=== PATIENT | male | born 1955 | race Caucasian/White ===

== ENCOUNTER → 2017-04-19 | Day surgery (SDC) | payer BC ==
[2017-03-22 09:50] VITALS: Ht 170.2 cm; Wt 65.9 kg
[~2017-04-19] VITALS: Ht 170.2 cm; Wt 65.9 kg
[~2017-04-19] MED LIST: 500ML BSS 0.3ML EPI 1:1000PF IRRIG ONE; ACETAMINOPHEN 325 MG TAB PO PRN; ALBU18002 INH; AMOX875T PO; AMVISC PLUS 0.8ML SYRINGE INT OCU ONE; AMX500 PO; ASPI81TA28 PO; ATROPINE SULFATE 0.1 MG/ML 5ML SYR IV PRN; BROM0.07 OPR; BSS FLUSH ONE; CEFU1TAB36 PO; DIFL0.0519 OPR; DOXY100C41 PO; EpHEDrine SULFATE INJ 50 MG/ML AMP IV PRN; EpINEphrine INJ 1MG/ML AMP 1 MG/ML AMP ONE; GATI1SOL2 OPR; HYG/25 PO; IPRA1AER2 INH; LACTATED RINGER'S 1000ML 500 ML IV SCH; LIDOCAINE 3.5% OPH GEL PER APPLICATION CHARGE ONE; LIDOCAINE HCL 1% MPF 2 ML VIAL ONE; METO50TA7 PO; MIDAZOLAM HCL 1 MG/ML 2ML VIAL ONE; MULT1CHW18 PO; OCUCOAT 1 ML SOLN IO ONE; PHEN1LIQ PO; POVIDONE-IODINE OP SOLN 30 ML BTL ONE; PRED10TA PO; PRLSR20 PO; PROPARACAINE 0.5% OP SOLN PER DROP CHARGE OPR SCH; SPRIN/30 INH; SRVDIN60 INH; TOBRAMYCIN/DEXAMETHASONE OPH OINT PER APPLN CHARGE ONE
[2017-04-19] MEDS: PHENYLEPHRINE HCL 2.5% OP SOLN PER DROP CHARGE OPR SCH ×2 (10:39→10:44)
[2017-04-19] MEDS: TROPICAMIDE 1% OP SOLN PER DROP CHARGE OPR SCH ×2 (10:40→10:45)
[2017-04-19] MEDS: CYCLOPENTOLATE HCL 1% OP SOLN PER DROP CHARGE OPR SCH ×2 (10:41→10:46)
[2017-04-19] MEDS: KETOROLAC 0.5% OP SOLN PER DROP CHARGE OPR SCH ×2 (10:42→10:47)
[2017-04-19] MEDS: GATIFLOXACIN OP SOLN PER DROP CHARGE OPR SCH ×2 (10:43→10:53)
--- NOTE | 2017-04-19 11:01 | History & Physical Bridge - [place] ---
H&P Re-Evaluation Bridge Note: I have examined the patient, reviewed the History & Physical and in the interval since the performance of the History & Physical I have noted the following changes of clinical significance: Diagnosis: Right Cataract Procedure: Right Cataract Removal with Lens Implant No changes noted
--- NOTE | 2017-04-19 11:52 | Discharge Instructions-SurgCtr ---
Discharge Instructions Date of Service Apr 19, 2017. Visit Reason for Visit: Cataract Right Eye Discharge Discharge Diagnosis / Problem: cataract Discharge Goals Goal(s): Improve function Activity Recommendations Activity Limitations: per Instructions/Follow-up section Anesthesia . Post Anesthesia Instructions: If you have had General Anesthesia or IV Sedation: * Do not drive today. * Resume driving when surgeon permits. * Do not make important decisions or sign legal documents today. * Call surgeon for: 1. Temperature elevations greater than 101 degrees F. 2. Uncontrollable pain. 3. Excessive bleeding. 4. Persistent nausea and vomiting. 5. Medication intolerance (nausea, vomiting or rash). * For nausea and vomiting use only clear liquids such as: tea, soda, bouillon until nausea subsides, then gradually increase diet as tolerated. * If you have any concerns or questions, call your surgeon's office. If physician is unavailable and it is an emergency, call 911 or go to the nearest emergency room. . Instructions / Follow-Up Instructions / Follow-Up ACTIVITY RECOMMENDATIONS: * No strenuous lifting, jogging or running for 4 days * No swimming or yard work for 1 week. * Limited bending is permitted, such as putting on shoes. RETURN TO SCHOOL/WORK: No work until seen by physician in office. MEDICATIONS: Resume previous medications unless instructed otherwise by your surgeon. This includes eye drops for glaucoma. Zymaxid/Gatifloxacin (gibson cap) - one drop every 2 hours until bedtime Nevanac/Ilevro/Prolensa/Ketorolac (huertas cap) - one drop every 4 hours until bedtime Prednisolone/Durezol (white/pink cap, SHAKE WELL) - one drop every 2 hours until bedtime Starting tomorrow - all 3 drops every 4 hours until seen in the office Optive drops - as needed for discomfort SPECIAL CARE INSTRUCTIONS: * Wear eyeshield when sleeping, for four nights. * You may wear your own glasses or sunglasses while awake. * You may read or watch TV * You may shower and wash your face, but be gentle around the eye and pat dry. * Blurry vision and mild irritation are normal. * Call office if pain is more severe or vision becomes dark at . FOLLOW UP VISIT: Follow-up with Dr Levine tomorrow. Diet Recommendations Home Diet: resume previous diet Procedures Procedures Performed: Right Cataract Phacoemulsification With Intraocular Lens Implant Pending Studies Studies pending at discharge: no Medical Emergencies . Who to Call and When: Medical Emergencies: If at any time you feel your situation is an emergency, please call 911 immediately. . Non-Emergent Contact Non-Emergency issues call your: [employer] . . "Provider Documentation" section prepared by Bryon Levine. .
--- NOTE | 2017-04-19 11:53 | [facility] Operative Report ---
Operative Report Date of Service Apr 19, 2017. Operative Report 1. PREOPERATIVE DIAGNOSIS: Cataract of the right eye. 2. POSTOPERATIVE DIAGNOSIS: Same. 3. PROCEDURE: Phacoemulsification with intraocular lens implantation of the right eye. SURGEON: Dr. Bryon Levine. ANESTHESIA: Topical Lidocaine gel, 1% Non- Preserved intracameral Lidocaine, and monitored intravenous sedation. INDICATIONS FOR THE PROCEDURE: The patient is a 61 - year-old male with a history of cataract of the right eye causing significant visual impairment. The details of the proposed procedure were explained to the patient who asked appropriate questions and following discussion of all risks, benefits and alternatives agreed to have the procedure done. 4. OPERATION AND FINDINGS: DESCRIPTION OF PROCEDURE: After informed consent was obtained, the patient was brought to the Operating Room at the [facility]. The patient was placed in a supine position and then the right eye was prepped and draped in the usual sterile fashion for intraocular surgery. A drop of topical Lidocaine gel was placed in the operative eye. A wire lid speculum was then placed in the fornices. A corneal paracentesis was then created temporally. The Non-Preserved Lidocaine was then instilled into the anterior chamber. The anterior chamber was then pressurized with viscoelastic. A 2.0 mm clear corneal incision was then created temporally. A cystotome was inserted into the anterior chamber and used to create a tear in the anterior lens capsule. This capsular tear was then used to create a small flap and the flap was dragged in a counterclockwise direction in order to create a continuous curvilinear capsulorrhexis. Hydrodissection was accomplished with balanced salt solution. Phacoemulsification of the lens nucleus was then performed in a standard [id number] technique. The phaco time was 39 seconds with an average power of 21 %. The remaining cortical material was removed using irrigation aspiration. The capsular bag was then filled with viscoelastic. A [employer]ch [employer] Lomb MI60L +20.0 diopters lens was then loaded into the injector and injected into the capsular bag. The remaining viscoelastic was removed with the irrigation aspiration handpiece. The wound was hydrated and then checked and found to be watertight. The intraocular pressure was checked and found to be adequate. The wire lid speculum was removed and the patient's face was cleaned and dried. TobraDex ointment was placed in the inferior fornix. The patient was discharged to the Recovery Room having tolerated the procedure well. There were no complications. The patient will be seen tomorrow in the office for follow-up. I attest to the content of the Intraoperative Record and any orders documented therein. Any exceptions are noted below.
[2017-04-19 11:54] VITALS: TEMP 36.5
[2017-04-19 12:17] VITALS: BP 116/76; PULSE 80; O2SAT 100
--- NOTE | 2017-04-19 12:20 | Anesthesia Progress Nt - [facility] ---
Anesthesia Post Op Note Date & Time Apr 19, 2017 at 12:20 Vital Signs Pain Intensity: 0 Vital Signs Past 12 Hours Date Time Temp Pulse Resp B/P (MAP) Pulse Ox O2 Delivery O2 Flow Rate FiO2 04/19/17 12:17 80 16 116/76 (89) 100 Room Air 04/19/17 11:54 36.5 88 12 103/69 (80) 95 Room Air 04/19/17 10:28 36.9 90 18 145/90 (108) 95 Room Air Notes Mental Status: alert / awake / arousable, participated in evaluation Pt Amnestic to Procedure: Yes Nausea / Vomiting: adequately controlled Pain: adequately controlled Airway Patency, RR, SpO2: stable & adequate BP & HR: stable & adequate Hydration State: stable & adequate Anesthetic Complications: no major complications apparent
== END | disposition home or self-care (01) ==
LOC: X.SURG 10:03
PROVIDERS: ATTEND Ophthalmology
DX: H26.9 Unspecified cataract (principal); I42.8 Other cardiomyopathies; I44.7 Left bundle-branch block, unspecified; I10 Essential (primary) hypertension; J44.9 Chronic obstructive pulmonary disease, unspecified; G47.33 Obstructive sleep apnea (adult) (pediatric); Z87.891 Personal history of nicotine dependence; Z79.82 Long term (current) use of aspirin; Z79.899 Other long term (current) drug therapy

== ENCOUNTER 2017-04-22 17:35 | Inpatient (IN) | payer BC ==
[~2017-04-22] VITALS: Ht 157.5 cm; Wt 63.0 kg
[~2017-04-22 17:35] MED LIST changes: -500ML BSS 0.3ML EPI 1:1000PF IRRIG ONE; -ACETAMINOPHEN 325 MG TAB PO PRN; -AMOX875T PO; -AMVISC PLUS 0.8ML SYRINGE INT OCU ONE; -ATROPINE SULFATE 0.1 MG/ML 5ML SYR IV PRN; -BROM0.07 OPR; -BSS FLUSH ONE; -CEFU1TAB36 PO; -DIFL0.0519 OPR; -DOXY100C41 PO; -EpHEDrine SULFATE INJ 50 MG/ML AMP IV PRN; -EpINEphrine INJ 1MG/ML AMP 1 MG/ML AMP ONE; -GATI1SOL2 OPR; -IPRA1AER2 INH; -LACTATED RINGER'S 1000ML 500 ML IV SCH; -LIDOCAINE 3.5% OPH GEL PER APPLICATION CHARGE ONE; -LIDOCAINE HCL 1% MPF 2 ML VIAL ONE; -MIDAZOLAM HCL 1 MG/ML 2ML VIAL ONE; -OCUCOAT 1 ML SOLN IO ONE; -POVIDONE-IODINE OP SOLN 30 ML BTL ONE; -PRED10TA PO; -PROPARACAINE 0.5% OP SOLN PER DROP CHARGE OPR SCH; -TOBRAMYCIN/DEXAMETHASONE OPH OINT PER APPLN CHARGE ONE
[2017-04-22] MEDS ORDERED: METHYLPREDNISOLONE 125 MG VIAL IV STA (17:54)
[2017-04-22] MEDS ORDERED: ALBUT/IPRATROP 3MG/0.5MG NEB 3 ML VIAL INH ONE (18:00)
--- NOTE | 2017-04-22 18:06 | EMERGENCY ROOM VISIT NOTE ---
History Report prepared by Minna: Chandra Rogers Under the Supervision of: Dr. Jodee Velázquez D.O. First contact with patient: 17:48 Chief Complaint: SHORTNESS OF BREATH Stated Complaint: SOB,COUGH,TROUBLE BREATHING History of Present Illness The patient is a 61 year old male who presents to the Emergency Room with complaints of worsening shortness of breath starting this morning. The patient additionally was coughing a lot today, and he is having some chest heaviness. The patient states that he is not on oxygen at home, and he has a history of COPD, though he has never had shortness of breath this bad before. The patient states that he has a lot of coughs, and he just finished taking amoxicillin and prednisone. The patient denies any recent fevers. The patient does not have a history of Mi or CHF, though he does have a weak heart. Source of History: patient Onset: this morning Position: other (global) Quality: other (shortness of breath) Timing: worsening Associated Symptoms: + cough, No fevers Note: Associated symptoms: Chest heaviness Review of Systems See HPI for pertinent positives & negatives. A total of 10 systems reviewed and were otherwise negative. Past Medical & Surgical Medical Problems: (1) COPD (chronic obstructive pulmonary disease) (2) COPD exacerbation Social History Smoking Status: Former Smoker Alcohol Use: occasionally Marital Status: Occupation Status: employed Current/Historical Medications Scheduled Amoxicillin & Pot Clavulanate (Augmentin 875-125 mg), 1 TAB PO BID Aspirin (Aspirin Ec), 81 MG PO QAM Bromfenac Sodium (Ophth) (Prolensa), 1 DROP OPR UD Chlorthalidone (Hygroton), 0.5 TAB PO QAM Difluprednate (Durezol), 1 DROP OPR UD Gatifloxacin (Ophth) (Gatifloxacin), 1 DROP OPR UD Metoprolol Succ (Toprol Xl) (Toprol-Xl), 50 MG PO QAM Multiple Vitamins W/ Minerals (Multivitamin Gummies Adul), 1 TAB PO QAM Omeprazole (Prilosec), 20 MG PO QAM Salmeterol Xinafoate (Serevent Diskus), 1 PUFF INH BID Tiotropium Entiat (Spiriva Handihaler), 1 CAP INH DAILY Scheduled PRN Albuterol Sulfate (Proair Respiclick), 2 PUFFS INH Q4H PRN for SOB/Wheezing Allergies Coded Allergies: ABRAM Inhibitors (Verified Allergy, Intermediate, elevates k+, 04/19/17) Physical Exam Vital Signs Date Time Temp Pulse Resp B/P (MAP) Pulse Ox O2 Delivery O2 Flow Rate FiO2 04/22/17 19:35 117 92 BiPAP 04/22/17 19:30 114/87 04/22/17 19:05 104 98 BiPAP 04/22/17 19:00 136/85 04/22/17 18:43 117 20 137/88 100 BiPAP 04/22/17 18:35 113 100 04/22/17 18:30 137/88 04/22/17 18:28 108 99 21 04/22/17 18:16 131/94 04/22/17 18:10 107 23 131/94 100 BiPAP 04/22/17 18:09 114 04/22/17 17:56 95 Nasal Cannula 2.0 04/22/17 17:55 88 Room Air 04/22/17 17:49 164/112 04/22/17 17:45 36.6 114 32 137/79 82 Room Air Physical Exam GENERAL: alert, ill appearing, increased work of breathing. EYE EXAM: normal conjunctiva, PERRL and EOM's grossly intact OROPHARYNX: no exudate, no erythema, lips, buccal mucosa, and tongue normal and mucous membranes are moist NECK: supple, no nuchal rigidity, no adenopathy, non-tender LUNGS: Increased work of breathing. Markedly decreased lung sounds. No rhonchi, wheezing, or rales. Retractions noted at the chest wall. HEART: Heart is fast but regular. No murmurs, S1 normal and S2 normal ABDOMEN: abdomen soft, non-tender, normo-active bowel sounds, no masses, no rebound or guarding, increased use of abdominal wall muscles with breathing BACK: Back is symmetrical on inspection and there is no deformity, no midline tenderness, no CVA tenderness. SKIN: no rashes and no bruising UPPER EXTREMITIES: upper extremities are grossly normal. LOWER EXTREMITIES: No pitting edema. NEURO EXAM: Normal sensorium, cranial nerves II-XII grossly intact, normal speech, no gross weakness of arms, no gross weakness of legs. Gross sensation intact. Medical Decision & Procedures ER Provider Diagnostic Interpretation: Radiology results have been interpreted by the radiologist and reviewed by me. CHEST ONE VIEW PORTABLE CLINICAL HISTORY: sob dyspnea COMPARISON STUDY: No previous studies for comparison. FINDINGS: Mild cardiomegaly. Emphysematous change with interstitial prominence throughout both hemithoraces. Subsegmental atelectasis right and to lesser extent left base. IMPRESSION: Emphysematous and interstitial change. Bibasilar atelectatic change The above report was generated using voice recognition software. It may contain grammatical, syntax or spelling errors. Electronically signed by: Edward Douglas M.D. 04/22/2017 6:11 PM Dictated Date/Time: 04/22/2017 6:10 PM Laboratory Results 04/22/17 17:50 Red Blood Count 4.67, Mean Corpuscular Volume 91.4, Mean Corpuscular Hemoglobin 30.4, Mean Corpuscular Hemoglobin Concent 33.3, Mean Platelet Volume 10.4, Neutrophils (%) (Auto) 65.0, Lymphocytes (%) (Auto) 18.4, Monocytes (%) (Auto) 8.7, Eosinophils (%) (Auto) 6.3, Basophils (%) (Auto) 1.2, Neutrophils # (Auto) 6.06, Lymphocytes # (Auto) 1.72, Monocytes # (Auto) 0.81, Eosinophils # (Auto) 0.59, Basophils # (Auto) 0.11 04/22/17 17:50 Test 04/22/17 17:50 04/22/17 17:58 04/22/17 18:17 White Blood Count 9.33 K/uL (4.8-10.8) Red Blood Count 4.67 M/uL (4.7-6.1) Hemoglobin 14.2 g/dL (14.0-18.0) Hematocrit 42.7 % (42-52) Mean Corpuscular Volume 91.4 fL (80-100) Mean Corpuscular Hemoglobin 30.4 pg (25-34) Mean Corpuscular Hemoglobin Concent 33.3 g/dl (32-36) Platelet Count 257 K/uL (130-400) Mean Platelet Volume 10.4 fL (7.4-10.4) Neutrophils (%) (Auto) 65.0 % Lymphocytes (%) (Auto) 18.4 % Monocytes (%) (Auto) 8.7 % Eosinophils (%) (Auto) 6.3 % Basophils (%) (Auto) 1.2 % Neutrophils # (Auto) 6.06 K/uL (1.4-6.5) Lymphocytes # (Auto) 1.72 K/uL (1.2-3.4) Monocytes # (Auto) 0.81 K/uL (0.11-0.59) Eosinophils # (Auto) 0.59 K/uL (0-0.5) Basophils # (Auto) 0.11 K/uL (0-0.2) RDW Standard Deviation 41.2 fL (36.4-46.3) RDW Coefficient of Variation 12.2 % (11.5-14.5) Immature Granulocyte % (Auto) 0.4 % Immature Granulocyte # (Auto) 0.04 K/uL (0.00-0.02) Prothrombin Time 10.8 SECONDS (9.0-12.0) Prothromb Time International Ratio 1.0 (0.9-1.1) Anion Gap 7.0 mmol/L (3-11) Est Creatinine Clear Calc Drug Dose 91.9 ml/min Estimated GFR () 113.9 Estimated GFR (Non- 98.3 BUN/Creatinine Ratio 15.6 (10-20) Calcium Level 9.0 mg/dl (8.5-10.1) Magnesium Level 2.1 mg/dl (1.8-2.4) Total Bilirubin 0.4 mg/dl (0.2-1) Aspartate Amino Transf (AST/SGOT) 25 U/L (15-37) Alanine Aminotransferase (ALT/SGPT) 39 U/L (12-78) Alkaline Phosphatase 86 U/L (45-117) Pro-B-Type Natriuretic Peptide 119 pg/ml (0-900) Total Protein 8.2 gm/dl (6.4-8.2) Albumin 3.6 gm/dl (3.4-5.0) Globulin 4.6 gm/dl (2.5-4.0) Albumin/Globulin Ratio 0.8 (0.9-2) Bedside Lactic Acid Venous 1.56 mmol/L (0.90-1.70) Bedside Troponin I < 0.030 ng/ml (0-0.045) Bedside Hemoglobin 13.6 g/dl (14.0-18.0) Bedside Hematocrit 40 % (42-52) Bedside Blood Gas pH (LAB) 7.29 (7.35-7.45) Bedside Blood Gas pCO2 (LAB) 51 mmHg (35-46) Bedside Blood Gas pO2 (LAB) 160 mmHg (80-95) Bedside Blood Gas HCO3 (LAB) 25 meq/L (19-24) Bedside Blood Gas Total CO2 26 mEq/l (24-31) Bedside Blood Gas Base Excess (LAB) -2.0 meq/L (-9-1.8) Bedside Blood Gas O2 Saturation 99.0 % (90-95) Bedside Sodium 137 mEq/L (135-144) Bedside Potassium 3.5 mEq/L (3.3-5.0) Laboratory results per my review. Medications Administered Medications (Trade) Dose Ordered Sig/Yao Route Start Time Stop Time Status Last Admin Dose Admin Albuterol/ Ipratropium (Duoneb) 12 ml ONE ONCE INH 04/22/17 18:00 04/22/17 18:01 DC 04/22/17 18:04 12 ML Methylprednisolone Sodium Succinate (Solu-Medrol IV) 125 mg NOW STAT IV 04/22/17 17:54 04/22/17 17:55 DC 04/22/17 18:05 125 MG ECG Indication: SOB/dyspnea Rate (beats per minute): 106 Rhythm: sinus tachycardia Findings: LBBB, no acute ischemic change, left axis deviation ED Course 1747: The patient was evaluated in room B1. A complete history and physical exam was performed. 1753: Solu-Medrol 125mg IV 175: I reevaluated the patient, and respiratory was at bedside. His oxygen saturation was okay on nasal cannula, but he is going to be put on BIPAP. 1800: DuoNeb 12ml INH 1818: I reassessed the patient, and he was feeling much better, and he is talking in full sentences. 1853: I reevaluated the patient, and he is feeling well. 1926: I reviewed the patient's case with Carlos Garsia. He will evaluate the patient for further management. Medical Decision Differential diagnosis: Etiologies such as infections, reactive airway disease, pneumonia, pneumothorax , COPD, CHF, cardiac ischemia, pulmonary embolism, musculoskeletal, gastrointestinal, as well as others were entertained. Patient likely COPD exacerbation, no chest pain, troponin negative despite left bundle-branch block on EKG, no old for comparison, will require serial enzymes and monitoring. She does have risk factors for CAD, although I doubt patient with active current ACS. Patient markedly improved here following use of BiPAP , hour-long nebulizer treatment and site Medrol. Patient with prior history of similar presentations of COPD exacerbations. No evidence of pneumonia or pulmonary edema on chest x-ray, BNP negative also doubt CHF. Patient with no significant acidemia or retention of CO2. Doubt bacteremia/sepsis, doubt vascular etiology. Medication Reconcilliation Current Medication List: was personally reviewed by me Blood Pressure Screening Patient's blood pressure: Elevated blood pressure Blood pressure disposition: Elevated BP felt to be situational Consults Time Called: 1855 Consulting Physician: Carlos Garsia Returned Call: 1926 I reviewed the patient's case with Carlos Garsia. He will evaluate the patient for further management. Impression Primary Impression: Dyspnea Additional Impressions: Hypoxia COPD exacerbation Critical Care I have personally spent greater than 40 minutes of critical care time in the direct management of this patient. This includes bedside care, interpretation of diagnostic studies, and testing, discussion with consultants, patient, and family members, and other required patient management activities. This 40 minutes is in excess of all separately billable procedures. Involved system: respiratory, cardiovascular Scribe Attestation The scribe's documentation has been prepared under my direction and personally reviewed by me in its entirety. I confirm that the note above accurately reflects all work, treatment, procedures, and medical decision making performed by me. Departure Information Dispostion Being Evaluated By Hospitalist Referrals Izzy Rodriguez M.D. (PCP) Patient Instructions My [facility] Problem Qualifiers Primary Impression: Dyspnea Dyspnea type: shortness of breath Qualified Codes: R06.02 - Shortness of breath
[2017-04-22 18:08] LABS: BASO % 1.2 %; BASO ABS # 0.11 K/uL (0-0.2); COMPLETE YES; EOS % 6.3 %; HEMATOCRIT 42.7 % (42-52); IG% 0.4 %; LYMPH % 18.4 %; LYMPH ABS # 1.72 K/uL (1.2-3.4); MEAN CELL VOLUME 91.4 fL (80-100); MEAN CORPUSCULAR HEMOGLOBIN 30.4 pg (25-34); MEAN CORPUSCULAR HGB CONC 33.3 g/dl (32-36); MEAN PLATELET VOLUME 10.4 fL (7.4-10.4); MONO % 8.7 %; PLATELET COUNT 257 K/uL (130-400); RED BLOOD COUNT 4.67 M/uL (4.7-6.1); WHITE BLOOD COUNT 9.33 K/uL (4.8-10.8)
--- NOTE | 2017-04-22 18:12 | DIAGNOSTIC IMAGING REPORT ---
CHEST ONE VIEW PORTABLE CLINICAL HISTORY: sob dyspnea COMPARISON STUDY: No previous studies for comparison. FINDINGS: Mild cardiomegaly. Emphysematous change with interstitial prominence throughout both hemithoraces. Subsegmental atelectasis right and to lesser extent left base. IMPRESSION: Emphysematous and interstitial change. Bibasilar atelectatic change The above report was generated using voice recognition software. It may contain grammatical, syntax or spelling errors. Electronically signed by: Edward Douglas M.D. 04/22/2017 6:11 PM Dictated Date/Time: 04/22/2017 6:10 PM
[2017-04-22 18:17] LABS: PROTHROMBIN TIME (PATIENT) 10.8 SECONDS (9.0-12.0)
[2017-04-22 18:26] LABS: BUN/CREATININE RATIO 15.6 (10-20); CREATININE 0.79 mg/dl (0.60-1.40); MAGNESIUM 2.1 mg/dl (1.8-2.4); POTASSIUM 3.5 mmol/L (3.5-5.1)
[2017-04-22 18:28] VITALS: PULSE 108; O2SAT 99
[2017-04-22 18:29] LABS: ISTAT ARTERIAL BLOOD GAS HCO3 25 meq/L (19-24); ISTAT ARTERIAL BLOOD GAS PCO2 51 mmHg (35-46); ISTAT ARTERIAL BLOOD GAS PO2 160 mmHg (80-95); ISTAT ARTERIAL BLOOD GAS pH 7.29 (7.35-7.45); ISTAT CARBON DIOXIDE 26 mEq/l (24-31); ISTAT HEMATOCRIT 40 % (42-52); ISTAT HEMOGLOBIN 13.6 g/dl (14.0-18.0); ISTAT SODIUM 137 mEq/L (135-144)
[2017-04-22 18:31] LABS: ALB/GLOB RATIO 0.8 (0.9-2)
[2017-04-22] MEDS ORDERED: AMOX875T PO (19:33)
[2017-04-22] MEDS ORDERED: GATI1SOL2 OPR (19:57)
[2017-04-22] MEDS ORDERED: DIFL0.0519 OPR (19:57)
[2017-04-22] MEDS ORDERED: BROM0.07 OPR (19:57)
[2017-04-22 20:25] VITALS: BP 125/78; PULSE 107; O2SAT 94; Ht 157.5 cm; Wt 63.0 kg
[2017-04-22] MEDS ORDERED: ACETAMINOPHEN 325 MG TAB PO PRN (21:00)
[2017-04-22] MEDS: IPRATROPIUM BROMIDE NEB SOLN 0.02% 2.5 ML VIAL INH SCH (21:40)
[2017-04-22] MEDS: LEVALBUTEROL 1.25MG/0.5ML NEB INH SCH (21:40)
[2017-04-22 21:42] VITALS: PULSE 103; O2SAT 93
[2017-04-22 21:55] LABS: ALLEN TEST POS (POS); ARTERIAL BLD GAS O2 SATURATION 94.9 % (90-95); ARTERIAL BLOOD GAS BASE EXCESS -1.1 mEq/L (-9-1.8); ARTERIAL BLOOD GAS HCO3 23 mmol/L (19-24); ARTERIAL BLOOD GAS PO2 92 mm/Hg (80-95); ARTERIAL BLOOD GAS pH 7.43 (7.35-7.45); O2 ADMINISTRATION 21% BIPAP
[2017-04-22] MEDS ORDERED: LEVALBUTEROL/IPRATROPIUM NEB INH SCH (22:00)
[2017-04-22] MEDS: GATIFLOXACIN 0.5% OP SOLN 2.5 ML BTL OPR SCH (22:05)
[2017-04-22] MEDS: SALMETEROL XINAFOATE 50MCG 28 BLISTER INH INH SCH (22:05)
[2017-04-22] MEDS: HEPARIN SOD 5000 UNIT/0.5 ML CARP SQ SCH (22:07)
[2017-04-22] MEDS: CEFTRIAXONE SOD INJ 1 GM in DEXTROSE 5% ADD-VANTAGE 50ML 50 ML IV SCH (22:34)
[2017-04-22] MEDS: DOXYCYCLINE IV 100 MG in DEXTROSE 5% 100ML 100 ML IV SCH (23:41)
[2017-04-23] VITALS (13 sets, daily range): BP systolic 117–138; BP diastolic 65–85; PULSE 90–122; TEMP 36.4–37; O2SAT 93–96
[2017-04-23] MEDS: METHYLPREDNISOLONE IV 60 MG in SYRINGE 0 ML IV SCH ×3 (00:02→16:24)
--- NOTE | 2017-04-23 02:21 | History and Physical ---
History & Physical Date & Time of Service: Apr 23, 2017 at 02:10 date of service 04/22/17 Chief Complaint: Copd Exacerbation Primary Care Physician: Izzy Rodriguez M.D. History of Present Illness Source: patient, clinic records, hospital records 61 year old male with COPD, history of Ischemic Cardiomyopathy and LBBB, RILEY, HTN presenting with progressive cough and shortness of breath x few days. Follows with Dr. Rodriguez for PCP. During the last week of March, patient presented to his PCP for productive cough. He was given Augment and Prednisone taper but the productive cough persisted with increasing shortness of breath. Denies chest pain, (+) subjective feeling of warmth At the ER, patient arrived hypoxic 82% on room air with bilateral wheezing. He was given IV Solumedrol, Duoneb and placed on Bipap with improvement of symptoms. On exam, patient was sitting up in bed, Bipap in place, alert, not in distress. He states that he is feeling much better since arrival. Denies active shortness of breath, chest pain, nausea, dizziness. No other symptoms. Family History Cancer, Diabetes- Father; Stroke- Mother Social History Smoking Status: Former Smoker Smokeless Tobacco Use: No Alcohol Use: none Drug Use: none Marital Status: Occupational Status: employed Multi-Drug Resistant Organisms History of MDRO: No Allergies Coded Allergies: ABRAM Inhibitors (Verified Allergy, Intermediate, elevates k+, 04/19/17) Home Medications Scheduled Amoxicillin & Pot Clavulanate (Augmentin 875-125 mg), 1 TAB PO BID Aspirin (Aspirin Ec), 81 MG PO QAM Bromfenac Sodium (Ophth) (Prolensa), 1 DROP OPR UD Chlorthalidone (Hygroton), 0.5 TAB PO QAM Difluprednate (Durezol), 1 DROP OPR UD Gatifloxacin (Ophth) (Gatifloxacin), 1 DROP OPR UD Metoprolol Succ (Toprol Xl) (Toprol-Xl), 50 MG PO QAM Multiple Vitamins W/ Minerals (Multivitamin Gummies Adul), 1 TAB PO QAM Omeprazole (Prilosec), 20 MG PO QAM Salmeterol Xinafoate (Serevent Diskus), 1 PUFF INH BID Tiotropium [place] (Spiriva Handihaler), 1 CAP INH DAILY Scheduled PRN Albuterol Sulfate (Proair Respiclick), 2 PUFFS INH Q4H PRN for SOB/Wheezing Review of Systems Constitutional- no fever; no weight loss Eyes- no acute visual changes ENT- no sinus drainage; no pharyngitis Pulmonary- (+) as noted above Cardiac- no chest pain, no palpitations, no orthopnea, no dependent edema GI- no nausea, no vomiting, no diarrhea, no melena, no hematochezia - no dysuria, no hematuria Musculoskeletal- no arthralgias, no myalgias Derm- no rashes, no new skin lesions, no changing skin lesions Hematologic- no unusual bruising, no unusual bleeding Lymphatics- no adenopathy Endocrine- no polyuria or polydipsia; no heat or cold intolerance Neuro- no headaches, no focal neurologic symptoms Psych- no anxiety, no depression Physical Exam Vital Signs Date Time Temp Pulse Resp B/P (MAP) Pulse Ox O2 Delivery O2 Flow Rate FiO2 04/23/17 00:32 36.4 110 18 137/80 (99) 95 04/23/17 00:00 BiPAP 21 04/22/17 21:42 103 20 93 BiPAP/CPAP 21 04/22/17 20:25 107 20 125/78 94 BiPAP 04/22/17 20:00 122/85 04/22/17 19:35 117 92 BiPAP 04/22/17 19:30 114/87 04/22/17 19:05 104 98 BiPAP 04/22/17 19:00 136/85 04/22/17 18:43 117 20 137/88 100 BiPAP 04/22/17 18:35 113 100 04/22/17 18:30 137/88 04/22/17 18:28 108 99 21 04/22/17 18:16 131/94 04/22/17 18:10 107 23 131/94 100 BiPAP 04/22/17 18:09 114 04/22/17 17:56 95 Nasal Cannula 2.0 04/22/17 17:55 88 Room Air 04/22/17 17:49 164/112 04/22/17 17:45 36.6 114 32 137/79 82 Room Air General Appearance: WD/WN, no apparent distress Head: normocephalic, atraumatic Eyes: normal inspection, EOMI, sclerae normal ENT: normal ENT inspection, hearing grossly normal, pharynx normal Neck: supple, no adenopathy, thyroid normal, no JVD, trachea midline Respiratory/Chest: no respiratory distress, no accessory muscle use, + pertinent finding (mild scattered wheezing bilaterally) Cardiovascular: regular rate, rhythm, no edema, no JVD, no murmur Abdomen/GI: normal bowel sounds, non tender, soft, no organomegaly Back: normal inspection, no CVA tenderness Extremities/Musculoskelatal: normal inspection, no calf tenderness, no pedal edema Neurologic/Psych: non destructive testing specialist II-XII nml as tested, no motor/sensory deficits, alert, normal mood/affect, oriented x 3 Skin: normal color, warm/dry, no rash Lymphatic: no adenopathy Diagnostics Laboratory Results Results Past 24 Hours Test 04/22/17 17:50 04/22/17 17:58 04/22/17 18:17 04/22/17 21:44 Range/Units White Blood Count 9.33 4.8-10.8 K/uL Red Blood Count 4.67 4.7-6.1 M/uL Hemoglobin 14.2 14.0-18.0 g/dL Hematocrit 42.7 42-52 % Mean Corpuscular Volume 91.4 80-100 fL Mean Corpuscular Hemoglobin 30.4 25-34 pg Mean Corpuscular Hemoglobin Concent 33.3 32-36 g/dl Platelet Count 257 130-400 K/uL Mean Platelet Volume 10.4 7.4-10.4 fL Neutrophils (%) (Auto) 65.0 % Lymphocytes (%) (Auto) 18.4 % Monocytes (%) (Auto) 8.7 % Eosinophils (%) (Auto) 6.3 % Basophils (%) (Auto) 1.2 % Neutrophils # (Auto) 6.06 1.4-6.5 K/uL Lymphocytes # (Auto) 1.72 1.2-3.4 K/uL Monocytes # (Auto) 0.81 0.11-0.59 K/uL Eosinophils # (Auto) 0.59 0-0.5 K/uL Basophils # (Auto) 0.11 0-0.2 K/uL RDW Standard Deviation 41.2 36.4-46.3 fL RDW Coefficient of Variation 12.2 11.5-14.5 % Immature Granulocyte % (Auto) 0.4 % Immature Granulocyte # (Auto) 0.04 0.00-0.02 K/uL Prothrombin Time 10.8 9.0-12.0 SECONDS Prothromb Time International Ratio 1.0 0.9-1.1 Sodium Level 137 136-145 mmol/L Potassium Level 3.5 3.5-5.1 mmol/L Chloride Level 103 98-107 mmol/L Carbon Dioxide Level 27 21-32 mmol/L Anion Gap 7.0 3-11 mmol/L Blood Urea Nitrogen 12 7-18 mg/dl Creatinine 0.79 0.60-1.40 mg/dl Est Creatinine Clear Calc Drug Dose 91.9 ml/min Estimated GFR () 113.9 Estimated GFR (Non- 98.3 BUN/Creatinine Ratio 15.6 10-20 Random Glucose 93 70-99 mg/dl Calcium Level 9.0 8.5-10.1 mg/dl Magnesium Level 2.1 1.8-2.4 mg/dl Total Bilirubin 0.4 0.2-1 mg/dl Aspartate Amino Transf (AST/SGOT) 25 15-37 U/L Alanine Aminotransferase (ALT/SGPT) 39 12-78 U/L Alkaline Phosphatase 86 45-117 U/L Pro-B-Type Natriuretic Peptide 119 0-900 pg/ml Total Protein 8.2 6.4-8.2 gm/dl Albumin 3.6 3.4-5.0 gm/dl Globulin 4.6 2.5-4.0 gm/dl Albumin/Globulin Ratio 0.8 0.9-2 Bedside Lactic Acid Venous 1.56 0.90-1.70 mmol/L Bedside Troponin I < 0.030 0-0.045 ng/ml Bedside Hemoglobin 13.6 14.0-18.0 g/dl Bedside Hematocrit 40 42-52 % Bedside Blood Gas pH (LAB) 7.29 7.35-7.45 Bedside Blood Gas pCO2 (LAB) 51 35-46 mmHg Bedside Blood Gas pO2 (LAB) 160 80-95 mmHg Bedside Blood Gas HCO3 (LAB) 25 19-24 meq/L Bedside Blood Gas Total CO2 26 24-31 mEq/l Bedside Blood Gas Base Excess (LAB) -2.0 -9-1.8 meq/L Bedside Blood Gas O2 Saturation 99.0 90-95 % Bedside Sodium 137 135-144 mEq/L Bedside Potassium 3.5 3.3-5.0 mEq/L Arterial Blood pH 7.43 7.35-7.45 Arterial Blood Partial Pressure CO2 36 35-46 mmHg Arterial Blood Partial Pressure O2 92 80-95 mm/Hg Arterial Blood HCO3 23 19-24 mmol/L Arterial Blood Oxygen Saturation 94.9 90-95 % Arterial Blood Base Excess -1.1 -9-1.8 mEq/L Arterial Blood Gas Delivery 21% BIPAP Sven Test POS POS Diagnostic Radiology CHEST ONE VIEW PORTABLE CLINICAL HISTORY: sob dyspnea COMPARISON STUDY: No previous studies for comparison. FINDINGS: Mild cardiomegaly. Emphysematous change with interstitial prominence throughout both hemithoraces. Subsegmental atelectasis right and to lesser extent left base. IMPRESSION: Emphysematous and interstitial change. Bibasilar atelectatic change EKG HR 106, sinus tachycardia, LBBB, QTc 496 Impression Assessment and Plan 61 year old male with COPD, history of Ischemic Cardiomyopathy and LBBB, RILEY, HTN presenting with progressive cough and shortness of breath x few days. ACUTE HYPOXIC RESPIRATORY FAILURE SECONDARY TO COPD EXACERBATION - ABG improved after IV solumedrol, Duoneb and Bipap at the ER - CXR no obvious infiltrates - check sputum culture - continue Solumedrol 60mg q8h Nebs q4h start empiric Ceftri + Doxycycline - on Spiriva, Salmeterol HYPERTENSION - continue Metoprolo, Chlorthalidone HISTORY OF ISCHEMIA CARDIOMYOPATHY CHRONIC LBBB - euvolemic no cardiac symptoms DVT proph Heparin SC q8h Full code per patient Disposition anticipate d/c home when medically stable follow up with Dr. Rodriguez for PCP Advanced Directives Existing Living Will: No Existing Power of Security Systems Specialist: No VTE Prophylaxis VTE Risk Assessment Done? Y/N: Yes Risk Level: Moderate Given or contraindicated: Unfractionated heparin SQ
[2017-04-23] MEDS: IPRATROPIUM BROMIDE NEB SOLN 0.02% 2.5 ML VIAL INH SCH ×6 (03:14→19:36)
[2017-04-23] MEDS: LEVALBUTEROL 1.25MG/0.5ML NEB INH SCH ×6 (03:14→19:36)
[2017-04-23] MEDS: HEPARIN SOD 5000 UNIT/0.5 ML CARP SQ SCH ×3 (06:00→21:15)
[2017-04-23 06:09] LABS: BASO % 0.2 %; BASO ABS # 0.01 K/uL (0-0.2); COMPLETE YES; EOS % 0.2 %; HEMATOCRIT 41.3 % (42-52); IG% 0.3 %; LYMPH % 7.2 %; LYMPH ABS # 0.47 K/uL (1.2-3.4); MEAN CELL VOLUME 90.4 fL (80-100); MEAN CORPUSCULAR HGB CONC 33.2 g/dl (32-36); MEAN PLATELET VOLUME 10.7 fL (7.4-10.4); MONO % 0.5 %; NEUT % 91.6 %; PLATELET COUNT 251 K/uL (130-400); RED BLOOD COUNT 4.57 M/uL (4.7-6.1); WHITE BLOOD COUNT 6.57 K/uL (4.8-10.8)
[2017-04-23 06:49] LABS: BUN/CREATININE RATIO 16.4 (10-20); CALCIUM 9.5 mg/dl (8.5-10.1); CREATININE 0.73 mg/dl (0.60-1.40); POTASSIUM 3.5 mmol/L (3.5-5.1)
[2017-04-23] MEDS: SALMETEROL XINAFOATE 50MCG 28 BLISTER INH INH SCH ×2 (07:34→21:14)
[2017-04-23] MEDS: METOPROLOL SUCC 50MG EXT REL TAB PO SCH (07:35)
[2017-04-23] MEDS: TIOTROPIUM BROMIDE 5 PUFF/90 MCG INH INH SCH (07:35)
[2017-04-23] MEDS: ASPIRIN 81 MG ECTAB PO SCH (07:36)
[2017-04-23] MEDS: CHLORTHALIDONE 25 MG TAB PO SCH (07:36)
[2017-04-23] MEDS: PANTOprazole SOD 40 MG TAB PO SCH (07:37)
[2017-04-23] MEDS: GATIFLOXACIN 0.5% OP SOLN 2.5 ML BTL OPR SCH ×3 (07:37→21:14)
[2017-04-23] MEDS: PROLENSA-NON-FORMULARY PATIENT'S OWN MED OP SCH (09:00)
[2017-04-23] MEDS: DOXYCYCLINE IV 100 MG in DEXTROSE 5% 100ML 100 ML IV SCH ×2 (11:29→22:49)
[2017-04-23] MEDS ORDERED: METOPROLOL TARTRATE 1 MG/ML VIAL IV PRN (12:00)
[2017-04-23] MEDS ORDERED: NURSING VERBAL MED ORDER ONE ×2 (12:15→16:15)
[2017-04-23] MEDS ORDERED: COUGH DROP (SUGAR FREE) LOZ 24 LOZ/1 BOX ONE (16:12)
[2017-04-23] MEDS ORDERED: COUGH DROP (SUGAR FREE) LOZ 24 LOZ/1 BOX PO PRN (16:30)
--- NOTE | 2017-04-23 18:34 | Progress Note ---
Internal Med Progress Note Date of Service: Apr 23, 2017. Provider Documentation: SUBJECTIVE: says sob much improved has some cough afebrile no chest pain no nausea likes to go home OBJECTIVE: Vital Signs-as noted below Exam: General-alert and oriented. Not in distress ENT-normal hearing Neck-no neck masses Lungs-cta b/l no wheezing no crackles Heart-s1 and s2 heard regular rhythm, no murmurs Abdomen-soft bowel sounds present non tender no distension Extremities no edema present no erythema Neuro-alert and oriented moves extremities Lab data as noted below. ASSESSMENT & PLAN: 61 year old male with COPD, history of Ischemic Cardiomyopathy and LBBB, RILEY, HTN presenting with progressive cough and shortness of breath x few days. ACUTE HYPOXIC RESPIRATORY FAILURE SECONDARY TO COPD EXACERBATION failed out patient tx on iv solumedrol, Rocephin and doxycycline nebs improving will monitor HYPERTENSION on Metoprolol, Chlorthalidone will monitor HISTORY OF ISCHEMIA CARDIOMYOPATHY CHRONIC LBBB euvolemic no cardiac symptoms Tachycardia iv Lopressor prn will cut back on nebs DVT proph Heparin SC q8h Full code per patient Disposition to be determined follow up with Dr. Rodriguez for PCP Vital Signs: Date Time Temp Pulse Resp B/P (MAP) Pulse Ox O2 Delivery O2 Flow Rate FiO2 04/23/17 16:00 Room Air 04/23/17 15:11 104 16 94 Room Air 04/23/17 14:59 36.9 112 18 126/72 (90) 93 Room Air 04/23/17 12:22 122 134/73 04/23/17 12:20 122 134/73 (93) 04/23/17 12:00 Room Air 04/23/17 11:17 100 16 93 Room Air 04/23/17 10:44 37.0 107 20 134/73 (93) 94 Room Air 04/23/17 08:00 95 Room Air 04/23/17 07:45 100 16 94 Room Air 04/23/17 07:29 36.7 117 20 131/70 (90) 96 Room Air 04/23/17 04:00 Room Air 04/23/17 03:50 37.0 104 18 138/85 (102) 94 04/23/17 03:15 90 16 94 Room Air 21 04/23/17 00:32 36.4 110 18 137/80 (99) 95 04/23/17 00:00 BiPAP 21 04/22/17 21:42 103 20 93 BiPAP/CPAP 21 04/22/17 20:25 107 20 125/78 94 BiPAP 04/22/17 20:00 122/85 04/22/17 19:35 117 92 BiPAP 04/22/17 19:30 114/87 04/22/17 19:05 104 98 BiPAP 04/22/17 19:00 136/85 04/22/17 18:43 117 20 137/88 100 BiPAP 04/22/17 18:35 113 100 Lab Results: Results Past 24 Hours Test 04/22/17 21:44 04/23/17 05:39 Range/Units Arterial Blood pH 7.43 7.35-7.45 Arterial Blood Partial Pressure CO2 36 35-46 mmHg Arterial Blood Partial Pressure O2 92 80-95 mm/Hg Arterial Blood HCO3 23 19-24 mmol/L Arterial Blood Oxygen Saturation 94.9 90-95 % Arterial Blood Base Excess -1.1 -9-1.8 mEq/L Arterial Blood Gas Delivery 21% BIPAP Sven Test POS POS White Blood Count 6.57 4.8-10.8 K/uL Red Blood Count 4.57 4.7-6.1 M/uL Hemoglobin 13.7 14.0-18.0 g/dL Hematocrit 41.3 42-52 % Mean Corpuscular Volume 90.4 80-100 fL Mean Corpuscular Hemoglobin 30.0 25-34 pg Mean Corpuscular Hemoglobin Concent 33.2 32-36 g/dl Platelet Count 251 130-400 K/uL Mean Platelet Volume 10.7 7.4-10.4 fL Neutrophils (%) (Auto) 91.6 % Lymphocytes (%) (Auto) 7.2 % Monocytes (%) (Auto) 0.5 % Eosinophils (%) (Auto) 0.2 % Basophils (%) (Auto) 0.2 % Neutrophils # (Auto) 6.03 1.4-6.5 K/uL Lymphocytes # (Auto) 0.47 1.2-3.4 K/uL Monocytes # (Auto) 0.03 0.11-0.59 K/uL Eosinophils # (Auto) 0.01 0-0.5 K/uL Basophils # (Auto) 0.01 0-0.2 K/uL RDW Standard Deviation 40.3 36.4-46.3 fL RDW Coefficient of Variation 12.2 11.5-14.5 % Immature Granulocyte % (Auto) 0.3 % Immature Granulocyte # (Auto) 0.02 0.00-0.02 K/uL Sodium Level 134 136-145 mmol/L Potassium Level 3.5 3.5-5.1 mmol/L Chloride Level 99 98-107 mmol/L Carbon Dioxide Level 27 21-32 mmol/L Anion Gap 8.0 3-11 mmol/L Blood Urea Nitrogen 12 7-18 mg/dl Creatinine 0.73 0.60-1.40 mg/dl Est Creatinine Clear Calc Drug Dose 84.2 ml/min Estimated GFR () 117.7 Estimated GFR (Non- 101.5 BUN/Creatinine Ratio 16.4 10-20 Random Glucose 154 70-99 mg/dl Calcium Level 9.5 8.5-10.1 mg/dl Microbiology Results 04/23/17 Gram Stain, Macario Batch Pending 04/23/17 Sputum Culture, Macario Batch Pending
[2017-04-23] MEDS ORDERED: LEVALBUTEROL 0.63MG/3 ML NEB INH PRN (18:45)
[2017-04-23] MEDS: DIFLUPREDNATE 0.05% OP SCH (21:14)
[2017-04-23] MEDS: CEFTRIAXONE SOD INJ 1 GM in DEXTROSE 5% ADD-VANTAGE 50ML 50 ML IV SCH (22:11)
[2017-04-24 00:01] VITALS: BP 120/66; PULSE 101; TEMP 36.6; O2SAT 95
[2017-04-24] MEDS: HEPARIN SOD 5000 UNIT/0.5 ML CARP SQ SCH (03:55)
[2017-04-24] MEDS ORDERED: METHYLPREDNISOLONE IV 40 MG in SYRINGE 0 ML IV SCH (04:00)
[2017-04-24 04:19] VITALS: BP 118/69; PULSE 99; TEMP 36.6; O2SAT 95
[2017-04-24 06:18] LABS: BASO % 0.1 %; BASO ABS # 0.01 K/uL (0-0.2); COMPLETE YES; HEMATOCRIT 38.2 % (42-52); IG% 0.4 %; LYMPH % 3.3 %; LYMPH ABS # 0.63 K/uL (1.2-3.4); MEAN CELL VOLUME 90.1 fL (80-100); MEAN CORPUSCULAR HEMOGLOBIN 31.6 pg (25-34); MEAN CORPUSCULAR HGB CONC 35.1 g/dl (32-36); MEAN PLATELET VOLUME 10.9 fL (7.4-10.4); MONO % 4.7 %; NEUT % 91.5 %; PLATELET COUNT 269 K/uL (130-400); RED BLOOD COUNT 4.24 M/uL (4.7-6.1); WHITE BLOOD COUNT 19.19 K/uL (4.8-10.8)
[2017-04-24 06:27] LABS: BUN/CREATININE RATIO 22.6 (10-20); CALCIUM 9.2 mg/dl (8.5-10.1); CREATININE 0.76 mg/dl (0.60-1.40); POTASSIUM 3.8 mmol/L (3.5-5.1)
[2017-04-24 07:05] VITALS: PULSE 87; O2SAT 94
[2017-04-24] MEDS: LEVALBUTEROL 1.25MG/0.5ML NEB INH SCH (07:05)
[2017-04-24] MEDS: IPRATROPIUM BROMIDE NEB SOLN 0.02% 2.5 ML VIAL INH SCH (07:05)
[2017-04-24 07:15] VITALS: BP 107/66; PULSE 107; TEMP 36.5; O2SAT 94
[2017-04-24] MEDS: PROLENSA-NON-FORMULARY PATIENT'S OWN MED OP SCH (08:23)
[2017-04-24] MEDS: GATIFLOXACIN 0.5% OP SOLN 2.5 ML BTL OPR SCH (08:23)
[2017-04-24] MEDS: TIOTROPIUM BROMIDE 5 PUFF/90 MCG INH INH SCH (08:23)
[2017-04-24] MEDS: DIFLUPREDNATE 0.05% OP SCH (08:23)
[2017-04-24] MEDS: SALMETEROL XINAFOATE 50MCG 28 BLISTER INH INH SCH (08:23)
[2017-04-24] MEDS: ASPIRIN 81 MG ECTAB PO SCH (08:24)
[2017-04-24] MEDS: PANTOprazole SOD 40 MG TAB PO SCH (08:24)
[2017-04-24] MEDS: METOPROLOL SUCC 50MG EXT REL TAB PO SCH (08:25)
[2017-04-24] MEDS: CHLORTHALIDONE 25 MG TAB PO SCH (08:25)
[2017-04-24] MEDS ORDERED: CEFU1TAB36 PO (09:57)
[2017-04-24] MEDS ORDERED: IPRA1AER2 INH (09:57)
[2017-04-24] MEDS ORDERED: DOXY100C41 PO (09:57)
[2017-04-24] MEDS ORDERED: PRED10TA PO (09:57)
--- NOTE | 2017-04-24 09:58 | Discharge Instructions ---
Discharge Instructions Date of Service Apr 24, 2017. Admission Reason for Admission: Copd Exacerbation Discharge Discharge Diagnosis / Problem: COPD EXACERBATION Discharge Goals Goal(s): Decrease discomfort Activity Recommendations Activity Limitations: resume your previous activity . Instructions / Follow-Up Instructions / Follow-Up FOLLOWUP WITH FAMILY DOCTOR ON Apr AT 11:45AM. Current Hospital Diet Patient's current hospital diet: AHA Diet (Heart Healthy) Discharge Diet Recommended Diet: AHA Diet (Heart Healthy) Pending Studies Studies pending at discharge: no Medical Emergencies . Who to Call and When: Medical Emergencies: If at any time you feel your situation is an emergency, please call 911 immediately. . Non-Emergent Contact Non-Emergency issues call your: Primary Care Provider . . "Provider Documentation" section prepared by Leodan Wetzel. . VTE Core Measure Inpt VTE Proph given/why not?: Unfractionated heparin SQ
[2017-04-24 10:23] VITALS: BP 107/66; PULSE 107; TEMP 36.5; O2SAT 94
--- NOTE | 2017-04-24 11:27 | Progress Note ---
Internal Med Progress Note Date of Service: Apr 24, 2017. Provider Documentation: SUBJECTIVE: denies sob some cough ambulating fine no chest pain afebrile want to go home OBJECTIVE: Vital Signs-as noted below Exam: General-alert and oriented. Not in distress ENT-normal hearing Neck-no neck masses Lungs-cta b/l no wheezing no crackles Heart-s1 and s2 heard regular rhythm, no murmurs Abdomen-soft bowel sounds present non tender no distension Extremities no edema present no erythema Neuro-alert and oriented moves extremities Lab data as noted below. ASSESSMENT & PLAN: 61 year old male with COPD, history of Ischemic Cardiomyopathy and LBBB, RILEY, HTN presenting with progressive cough and shortness of breath x few days. ACUTE HYPOXIC RESPIRATORY FAILURE SECONDARY TO COPD EXACERBATION failed out patient tx on iv solumedrol, Rocephin and doxycycline nebs improved d/c on doxycycline, cefuroxime,tapering steroids, home inhalers and Combivent Respimat f/u with pcp HYPERTENSION on Metoprolol, Chlorthalidone will monitor. stable HISTORY OF ISCHEMIA CARDIOMYOPATHY CHRONIC LBBB euvolemic no cardiac symptoms Tachycardia iv Lopressor prn will cut back on nebs f/u with pcp discharged home Vital Signs: Date Time Temp Pulse Resp B/P (MAP) Pulse Ox O2 Delivery O2 Flow Rate FiO2 04/24/17 10:23 36.5 107 20 94 Room Air 04/24/17 08:00 Room Air 04/24/17 07:15 36.5 107 20 107/66 (80) 94 Room Air 04/24/17 07:05 87 16 94 Room Air 04/24/17 04:19 36.6 99 18 118/69 (85) 95 04/24/17 04:00 Room Air 04/24/17 00:01 36.6 101 16 120/66 (84) 95 04/24/17 00:00 Room Air 04/23/17 20:00 Room Air 04/23/17 19:37 104 16 93 Room Air 04/23/17 18:48 36.7 113 18 117/65 (82) 93 Room Air 04/23/17 16:00 Room Air 04/23/17 15:11 104 16 94 Room Air 04/23/17 14:59 36.9 112 18 126/72 (90) 93 Room Air 04/23/17 12:22 122 134/73 04/23/17 12:20 122 134/73 (93) 04/23/17 12:00 Room Air Lab Results: Results Past 24 Hours Test 04/24/17 05:16 Range/Units White Blood Count 19.19 4.8-10.8 K/uL Red Blood Count 4.24 4.7-6.1 M/uL Hemoglobin 13.4 14.0-18.0 g/dL Hematocrit 38.2 42-52 % Mean Corpuscular Volume 90.1 80-100 fL Mean Corpuscular Hemoglobin 31.6 25-34 pg Mean Corpuscular Hemoglobin Concent 35.1 32-36 g/dl Platelet Count 269 130-400 K/uL Mean Platelet Volume 10.9 7.4-10.4 fL Neutrophils (%) (Auto) 91.5 % Lymphocytes (%) (Auto) 3.3 % Monocytes (%) (Auto) 4.7 % Eosinophils (%) (Auto) 0.0 % Basophils (%) (Auto) 0.1 % Neutrophils # (Auto) 17.58 1.4-6.5 K/uL Lymphocytes # (Auto) 0.63 1.2-3.4 K/uL Monocytes # (Auto) 0.90 0.11-0.59 K/uL Eosinophils # (Auto) 0.00 0-0.5 K/uL Basophils # (Auto) 0.01 0-0.2 K/uL RDW Standard Deviation 40.0 36.4-46.3 fL RDW Coefficient of Variation 12.4 11.5-14.5 % Immature Granulocyte % (Auto) 0.4 % Immature Granulocyte # (Auto) 0.07 0.00-0.02 K/uL Sodium Level 137 136-145 mmol/L Potassium Level 3.8 3.5-5.1 mmol/L Chloride Level 103 98-107 mmol/L Carbon Dioxide Level 26 21-32 mmol/L Anion Gap 8.0 3-11 mmol/L Blood Urea Nitrogen 17 7-18 mg/dl Creatinine 0.76 0.60-1.40 mg/dl Est Creatinine Clear Calc Drug Dose 80.8 ml/min Estimated GFR () 115.7 Estimated GFR (Non- 99.9 BUN/Creatinine Ratio 22.6 10-20 Random Glucose 153 70-99 mg/dl Calcium Level 9.2 8.5-10.1 mg/dl
--- NOTE | 2017-04-24 16:03 | Discharge Summary ---
Discharge Summary Date of Service Apr 24, 2017. Discharge Summary Admission Date: Apr 22, 2017 at 19:39 Discharge Date: Apr 24, 2017 Discharge Disposition: Home Principal Diagnosis: COPD EXACERBATION ACUTE HYPOXIC RESPIRATORY FAILURE SECONDARY TO COPD EXACERBATION Secondary Diagnoses/Problems: COPD, history of Ischemic Cardiomyopathy and LBBB, RILEY, HTN Procedures: CXR: Emphysematous and interstitial change. Bibasilar atelectatic change Medication Reconciliation New Medications: Cefuroxime Axetil (Cefuroxime Axetil) 500 Mg Tab 1 TAB PO BID for 5 Days, #10 TAB Doxycycline (Monohydrate) (Monodox) 100 Mg Cap 100 MG PO BID for 5 Days, #10 CAP Ipratropium-Albuterol (Combivent Respimat) 1 Aer Aer 1 PUFFS INH QID, #1 INH 1 Refill Prednisone (Prednisone) 10 Mg Tab 40 MG PO UD, #21 TAB PREDNISONE 40MG PO DAILY X 2 DAYS THEN PREDNISONE 30MG PO DAILY X 2 DAYS THEN PREDNISONE 20MG PO DAILY X 2 DAYS THEN PREDNISONE 10MG PO DAILY X 2 DAYS THEN PREDNISONE 5MG PO DAILY X 2 DAYS THEN STOP. Continued Medications: Albuterol Sulfate (Proair Respiclick) 108 Mcg/Act Aer 2 PUFFS INH Q4H PRN for SOB/Wheezing Aspirin (Aspirin Ec) 81 Mg Tab 81 MG PO QAM Bromfenac Sodium (Ophth) (Prolensa) 0.07 % Ciera 1 DROP OPR UD, #3 TAKES UD FROM CATARACT SURGERY ON 04/19/17 Chlorthalidone (Hygroton) 25 Mg Tab 0.5 TAB PO QAM Difluprednate (Durezol) 0.05 % Emu 1 DROP OPR UD, #5 TAKE UD FROM CATARACT SURGERY ON LAST TUESDAY. Gatifloxacin (Ophth) (Gatifloxacin) 0.5 % Ciera 1 DROP OPR UD, #3 HAD CATARACT SURGERY TUESDAY Metoprolol Succ (Toprol Xl) (Toprol-Xl) 50 Mg Tabcr 50 MG PO QAM Multiple Vitamins W/ Minerals (Multivitamin Gummies Adul) 1 Chw Chw 1 TAB PO QAM Omeprazole (Prilosec) 20 Mg Capcr 20 MG PO QAM Salmeterol Xinafoate (Serevent Diskus) 50 Mcg Aerp 1 PUFF INH BID Tiotropium [place] (Spiriva Handihaler) 30 Puff/540 Mcg Aerp 1 CAP INH DAILY Discontinued Medications: Amoxicillin & Pot Clavulanate (Augmentin 875-125 mg) 1 Tab Tab 1 TAB PO BID for 10 Days, #20 TAB Admission Information HPI (per Admitting provider): 61 year old male with COPD, history of Ischemic Cardiomyopathy and LBBB, RILEY, HTN presenting with progressive cough and shortness of breath x few days. Follows with Dr. Rodriguez for PCP. During the last week of March, patient presented to his PCP for productive cough. He was given Augment and Prednisone taper but the productive cough persisted with increasing shortness of breath. Denies chest pain, (+) subjective feeling of warmth At the ER, patient arrived hypoxic 82% on room air with bilateral wheezing. He was given IV Solumedrol, Duoneb and placed on Bipap with improvement of symptoms. On exam, patient was sitting up in bed, Bipap in place, alert, not in distress. He states that he is feeling much better since arrival. Denies active shortness of breath, chest pain, nausea, dizziness. No other symptoms. Physical Exam (per Admitting): General Appearance: WD/WN, no apparent distress Head: normocephalic, atraumatic Eyes: normal inspection, EOMI, sclerae normal ENT: normal ENT inspection, hearing grossly normal, pharynx normal Neck: supple, no adenopathy, thyroid normal, no JVD, trachea midline Respiratory/Chest: no respiratory distress, no accessory muscle use, + pertinent finding (mild scattered wheezing bilaterally) Cardiovascular: regular rate, rhythm, no edema, no JVD, no murmur Abdomen/GI: normal bowel sounds, non tender, soft, no organomegaly Back: normal inspection, no CVA tenderness Extremities/Musculoskelatal: normal inspection, no calf tenderness, no pedal edema Neurologic/Psych: senior clinical consultant II-XII nml as tested, no motor/sensory deficits, alert , normal mood/affect, oriented x 3 Skin: normal color, warm/dry, no rash Lymphatic: no adenopathy Hospital Course 61 year old male with COPD, history of Ischemic Cardiomyopathy and LBBB, RILEY, HTN presenting with progressive cough and shortness of breath x few days. ACUTE HYPOXIC RESPIRATORY FAILURE SECONDARY TO COPD EXACERBATION failed out patient tx on iv solumedrol, Rocephin and doxycycline nebs improved d/c on doxycycline, cefuroxime,tapering steroids, home inhalers and Combivent Respimat f/u with pcp HYPERTENSION on Metoprolol, Chlorthalidone will monitor. stable HISTORY OF ISCHEMIA CARDIOMYOPATHY CHRONIC LBBB euvolemic no cardiac symptoms Tachycardia iv Lopressor prn will cut back on nebs f/u with pcp discharged home Total time spent on discharge = 35MINUTES This includes examination of the patient, discharge planning, medication reconciliation, and communication with other providers. Discharge Instructions Please take this sheet to every appointment for the next month Discharge Instructions Date of Service Apr 24, 2017. Admission Reason for Admission: Copd Exacerbation Discharge Discharge Diagnosis / Problem: COPD EXACERBATION Discharge Goals Goal(s): Decrease discomfort Activity Recommendations Activity Limitations: resume your previous activity . Instructions / Follow-Up Instructions / Follow-Up FOLLOWUP WITH FAMILY DOCTOR ON Apr AT 11:45AM. Current Hospital Diet Patient's current hospital diet: AHA Diet (Heart Healthy) Discharge Diet Recommended Diet: AHA Diet (Heart Healthy) Pending Studies Studies pending at discharge: no Medical Emergencies . Who to Call and When: Medical Emergencies: If at any time you feel your situation is an emergency, please call 911 immediately. . Non-Emergent Contact Non-Emergency issues call your: Primary Care Provider . . "Provider Documentation" section prepared by Leodan Wetzel. . VTE Core Measure Inpt VTE Proph given/why not?: Unfractionated heparin SQ
[2017-04-26] MEDS ORDERED: PRED10TA PO (08:01)
== END 2017-04-24 11:00 | disposition home or self-care (01) | DRG 190 ==
LOC: C.EDB 17:37 → C.2E 19:39 → ENRESERV 19:53
PROVIDERS: ADMIT Internal Medicine; ATTEND Internal Medicine
DX: J44.1 Chronic obstructive pulmonary disease with (acute) exacerbation (principal); J96.01 Acute respiratory failure with hypoxia; I10 Essential (primary) hypertension; R00.0 Tachycardia, unspecified; I25.5 Ischemic cardiomyopathy; I44.7 Left bundle-branch block, unspecified; G47.33 Obstructive sleep apnea (adult) (pediatric); Z87.891 Personal history of nicotine dependence; Z79.1 Long term (current) use of non-steroidal anti-inflammatories (NSAID); Z79.82 Long term (current) use of aspirin; Z79.899 Other long term (current) drug therapy; Z83.3 Family history of diabetes mellitus; Z82.3 Family history of stroke

== ENCOUNTER → 2017-05-10 | Day surgery (SDC) | payer BC ==
[2017-04-26 08:03] VITALS: Ht 170.2 cm; Wt 65.9 kg
[~2017-05-10] VITALS: Ht 170.2 cm; Wt 65.9 kg
[~2017-05-10] MED LIST changes: +500ML BSS 0.3ML EPI 1:1000PF IRRIG ONE; +ACETAMINOPHEN 325 MG TAB PO PRN; +AMVISC PLUS 0.8ML SYRINGE INT OCU ONE; -AMX500 PO; +ATROPINE SULFATE 0.1 MG/ML 5ML SYR IV PRN; +BSS FLUSH ONE; +EpHEDrine SULFATE INJ 50 MG/ML AMP IV PRN; +EpINEphrine INJ 1MG/ML AMP 1 MG/ML AMP ONE; +IPRA1AER2 INH; +LACTATED RINGER'S 1000ML 500 ML IV SCH; +LIDOCAINE 3.5% OPH GEL PER APPLICATION CHARGE ONE; +LIDOCAINE HCL 1% MPF 2 ML VIAL ONE; +MIDAZOLAM HCL 1 MG/ML 2ML VIAL ONE; +OCUCOAT 1 ML SOLN IO ONE; -PHEN1LIQ PO; +POVIDONE-IODINE OP SOLN 30 ML BTL ONE; +PRED10TA PO; +PROPARACAINE 0.5% OP SOLN PER DROP CHARGE OPL SCH; +TOBRAMYCIN/DEXAMETHASONE OPH OINT PER APPLN CHARGE ONE
[2017-05-10] MEDS: PHENYLEPHRINE HCL 2.5% OP SOLN PER DROP CHARGE OPL SCH ×2 (07:49→07:55)
--- NOTE | 2017-05-10 07:49 | History & Physical Bridge - SC ---
H&P Re-Evaluation Bridge Note: I have examined the patient, reviewed the History & Physical and in the interval since the performance of the History & Physical I have noted the following changes of clinical significance: Diagnosis: Left Cataract Procedure: Left Cataract Removal with Lens Implant No changes noted
[2017-05-10] MEDS: TROPICAMIDE 1% OP SOLN PER DROP CHARGE OPL SCH ×2 (07:50→07:56)
[2017-05-10] MEDS: CYCLOPENTOLATE HCL 1% OP SOLN PER DROP CHARGE OPL SCH ×2 (07:51→07:57)
[2017-05-10] MEDS: GATIFLOXACIN OP SOLN PER DROP CHARGE OPL SCH ×2 (07:52→08:02)
[2017-05-10] MEDS: KETOROLAC 0.5% OP SOLN PER DROP CHARGE OPL SCH ×2 (07:52→07:58)
--- NOTE | 2017-05-10 08:31 | Discharge Instructions-SurgCtr ---
Discharge Instructions Date of Service May 10, 2017. Visit Reason for Visit: Cataract Left Eye Discharge Discharge Diagnosis / Problem: cataract Discharge Goals Goal(s): Improve function Activity Recommendations Activity Limitations: per Instructions/Follow-up section Anesthesia . Post Anesthesia Instructions: If you have had General Anesthesia or IV Sedation: * Do not drive today. * Resume driving when surgeon permits. * Do not make important decisions or sign legal documents today. * Call surgeon for: 1. Temperature elevations greater than 101 degrees F. 2. Uncontrollable pain. 3. Excessive bleeding. 4. Persistent nausea and vomiting. 5. Medication intolerance (nausea, vomiting or rash). * For nausea and vomiting use only clear liquids such as: tea, soda, bouillon until nausea subsides, then gradually increase diet as tolerated. * If you have any concerns or questions, call your surgeon's office. If physician is unavailable and it is an emergency, call 911 or go to the nearest emergency room. . Diet Recommendations Home Diet: resume previous diet Procedures Procedures Performed: Left Cataract Phacoemulsification With Intraocular Lens Implant Pending Studies Studies pending at discharge: no Medical Emergencies . Who to Call and When: Medical Emergencies: If at any time you feel your situation is an emergency, please call 911 immediately. . Non-Emergent Contact Non-Emergency issues call your: Privacy Officer . . "Provider Documentation" section prepared by Bryon Levine. .
--- NOTE | 2017-05-10 08:31 | [facility] Operative Report ---
Operative Report Date of Service May 10, 2017. Operative Report 1. PREOPERATIVE DIAGNOSIS: Cataract of the left eye. 2. POSTOPERATIVE DIAGNOSIS: Same. 3. PROCEDURE: Phacoemulsification with intraocular lens implantation of the left eye. SURGEON: Dr. Bryon Levine. ANESTHESIA: Topical Lidocaine gel, 1% Non- Preserved intracameral Lidocaine, and monitored intravenous sedation. INDICATIONS FOR THE PROCEDURE: The patient is a 61 - year-old male with a history of cataract of the left eye causing significant visual impairment. The details of the proposed procedure were explained to the patient who asked appropriate questions and following discussion of all risks, benefits and alternatives agreed to have the procedure done. 4. OPERATION AND FINDINGS: DESCRIPTION OF PROCEDURE: After informed consent was obtained, the patient was brought to the Operating Room at the [facility]. The patient was placed in a supine position and then the left eye was prepped and draped in the usual sterile fashion for intraocular surgery. A drop of topical Lidocaine gel was placed in the operative eye. A wire lid speculum was then placed in the fornices. A corneal paracentesis was then created temporally. The Non-Preserved Lidocaine was then instilled into the anterior chamber. The anterior chamber was then pressurized with viscoelastic. A 2.0 mm clear corneal incision was then created temporally. A cystotome was inserted into the anterior chamber and used to create a tear in the anterior lens capsule. This capsular tear was then used to create a small flap and the flap was dragged in a counterclockwise direction in order to create a continuous curvilinear capsulorrhexis. Hydrodissection was accomplished with balanced salt solution. Phacoemulsification of the lens nucleus was then performed in a standard [id number] technique. The phaco time was 14 seconds with an average power of 8 %. The remaining cortical material was removed using irrigation aspiration. The capsular bag was then filled with viscoelastic. A [employer]ch [employer] Lomb MI60L +20.5 diopters lens was then loaded into the injector and injected into the capsular bag. The remaining viscoelastic was removed with the irrigation aspiration handpiece. The wound was hydrated and then checked and found to be watertight. The intraocular pressure was checked and found to be adequate. The wire lid speculum was removed and the patient's face was cleaned and dried. TobraDex ointment was placed in the inferior fornix. The patient was discharged to the Recovery Room having tolerated the procedure well. There were no complications. The patient will be seen tomorrow in the office for follow-up. I attest to the content of the Intraoperative Record and any orders documented therein. Any exceptions are noted below.
[2017-05-10 08:32] VITALS: TEMP 36.8
--- NOTE | 2017-05-10 08:40 | Anesthesia Progress Nt - [facility] ---
Anesthesia Post Op Note Date & Time May 10, 2017 at 08:40 Vital Signs Pain Intensity: 0 Vital Signs Past 12 Hours Date Time Temp Pulse Resp B/P (MAP) Pulse Ox O2 Delivery O2 Flow Rate FiO2 05/10/17 08:32 36.8 98 18 93/63 (73) 96 Room Air 05/10/17 07:41 37.0 109 18 123/79 (94) 95 Room Air Notes Mental Status: alert / awake / arousable, participated in evaluation Pt Amnestic to Procedure: Yes Nausea / Vomiting: adequately controlled Pain: adequately controlled Airway Patency, RR, SpO2: stable & adequate BP & HR: stable & adequate Hydration State: stable & adequate Anesthetic Complications: no major complications apparent
[2017-05-10 08:53] VITALS: BP 123/76; PULSE 90; O2SAT 97
== END | disposition home or self-care (01) ==
LOC: X.SURG 07:10
PROVIDERS: ATTEND Ophthalmology
DX: H25.9 Unspecified age-related cataract (principal); I42.8 Other cardiomyopathies; I44.7 Left bundle-branch block, unspecified; J44.9 Chronic obstructive pulmonary disease, unspecified; G47.33 Obstructive sleep apnea (adult) (pediatric); I10 Essential (primary) hypertension; Z87.891 Personal history of nicotine dependence; Z79.82 Long term (current) use of aspirin; Z79.899 Other long term (current) drug therapy

== ENCOUNTER 2020-01-07 22:25 | Inpatient (IN) ==
[2020-01-07] MEDS ORDERED: AMPICILLIN/SULBACTAM SOD 3,000 MG in 0.9 % SODIUM CHLORIDE 100 ML IV STA (22:43)
[2020-01-07] MEDS ORDERED: ACETAMINOPHEN 325 MG TAB PO STA (22:43)
[2020-01-07] MEDS ORDERED: SODIUM CHLORIDE 0.9% 1000ML 1,000 ML IV SCH (22:45)
--- NOTE | 2020-01-07 22:52 | Emergency Department Note ---
History of Present Illness General Chief complaint: Animal Bite Stated complaint: GOT BIT BY CAT ON ON RIGHT ARM/HAND - FEVER Time Seen by Provider: 01/07/20 22:34 History of Present Illness Maximum Pain Intensity: 5 This is a 64-year-old male that presents to the emergency department via private vehicle with complaints of "bit by cat on right hand/armfever". The patient is right-hand dominant. Earlier today around noon time he states that he was bitten on his right upper extremity and specifically points to the dorsum of the right hand, right ventral medial wrist as well as right proximal forearm. The patient states that he immediately cleansed the wounds and the cat's vaccin ations are up-to-date. He believes that his tetanus is up-to-date. He states that since that time he notes a large amount of swelling and redness to the right upper extremity. He also has chills and checked his temperature with a T- max of 102 F at home. He denies any new cough or exposure to coronavirus that he is aware of. Home Medications Home Medications Medication Instructions Recorded Confirmed Type aspirin [Aspir-81] 81 mg PO DAILY 03/17/19 01/07/20 History chlorthalidone 25 mg PO DAILY 03/17/19 01/07/20 History metoprolol succinate 50 mg PO DAILY 03/17/19 01/07/20 History multivitamin 1 tab PO DAILY 03/17/19 01/07/20 History omeprazole 20 mg PO DAILY 03/17/19 01/07/20 History fluticasone propionate 2 spray INTRANASAL DAILY 01/07/20 01/07/20 History montelukast 10 mg PO DAILY 01/07/20 01/07/20 History umeclidinium [Incruse Ellipta] 1 inh INHALATION DAILY 01/07/20 01/07/20 History Allergies Allergy/AdvReac Type Severity Reaction Status Date / Time ABRAM Inhibitors Allergy Intermediate elevates k+ Verified 01/07/20 23:00 Past Med/Surg History Medical History (Updated 01/08/20 @ 08:45 by Sean Tiwari PA-C) COPD (chronic obstructive pulmonary disease) (Chronic) Heart disease (Chronic) Hypertension (Chronic) Surgical History No pertinent past surgical history Family History (Updated 03/17/19 @ 20:57 by Young Merino) Other Cancer Diabetes Hypertension Social History Preferred Language: Samoan Communication Ability: Effective Beliefs That Will Affect Care: None Current Living Situation: Spouse Other Information That Helps Us Care for You: No Feels Safe at Home: Yes Safety Concerns: Feels Safe At This Time Smoking Status: Former smoker Tobacco Type: cigarettes ; Do You Dip or Chew Tobacco: No ; Second Hand Exposure: Yes ; Hx Alcohol Use: Yes Alcohol type: beer Hx Substance Use: No Review of Systems A total of 10 systems reviewed and were otherwise negative Physical Exam Vital Signs Vital Signs - 24 hr 01/07/20 22:27 01/07/20 23:06 01/07/20 23:07 Temperature 37.7 C H Temperature Source Oral Pulse Rate 111 H 96 H 99 H Respiratory Rate 20 19 21 Respiratory Effort / Characteristics Non-Labored Spontaneous Respiratory Depth Normal Blood Pressure 149/88 H 131/77 Blood Pressure Mean 108 98 Blood Pressure Position Sitting Pulse Oximetry 91 Oxygen Delivery Method Room Air Sepsis Recent Fever Within 48 Hours Yes Sepsis New/Unexplained Change in Mental Status No Sepsis Action Taken by Nursing Physician Notified 01/07/20 23:14 01/08/20 00:00 01/08/20 00:16 Temperature 36.8 C Temperature Source Oral Pulse Rate 97 H Respiratory Rate 18 Respiratory Effort / Characteristics Respiratory Depth Blood Pressure 138/77 Blood Pressure Mean 103 Blood Pressure Position Pulse Oximetry 98 98 Oxygen Delivery Method Room Air Sepsis Recent Fever Within 48 Hours Sepsis New/Unexplained Change in Mental Status Sepsis Action Taken by Nursing VITAL SIGNS - Vital signs and nursing notes were reviewed. Patient is tachycardic and febrile on arrival. GENERAL -64-year-old male appearing his stated age who is in no acute distress. Communicates well with provider and answers questions appropriately. SKIN -the right upper extremity has several bite wounds. The first of which is on the dorsum of the right hand and right ventral medial wrist as well as the right proximal ventral forearm. There is erythema of the sites with lymp hangitic streaking tracking proximal towards the right axilla region. There is some weeping from the wounds but no purulence. HEAD - NC/AT. EYES - Sclera anicteric. EARS - No deformities of external structures noted on gross examination bilaterally. NOSE - Midline and without cyanosis. MOUTH/OROPHARYNX - Without perioral cyanosis. LUNGS - Chest wall symmetric without accessory muscle use, intercostals retractions, or central cyanosis. Normal vesicular breath sounds CTA B/L. No wheezes, rales, or rhonchi appreciated. CARDIAC - RRR with S1/S2. No murmur, rubs, or gallops appreciated. ABDOMEN - Abdominal contour normal without pulsations or visible masses. BS normoactive all four quadrants. No tenderness, palpable masses, hepatosplenomegaly, or ascites noted. EXTREMITIES - No clubbing or peripheral cyanosis. Skin as above. There is tenderness overlying the right upper extremity. No visible foreign body. No repairable laceration. Right radial pulse within normal limits. Cap refill within normal limits. +5/5 strength noted in UE/LE bilaterally. NEUROLOGIC - Cranial nerves II through XII grossly intact. Sensory intact to light touch throughout. PSYCH - A&O, and cooperates fully with examiner. Pt is very pleasant and interacts well with examiner. Course Administered Medications Potassium Chloride 40 meq/ (Sodium Chloride) 1,020 mls @ 75 mls/hr IV .[id number] ONE Stop: 01/08/20 14:47 Last Infusion: 01/08/20 05:33 Dose: 75 mls/hr Documented by: [id number] Infusion: 01/08/20 05:05 Dose: 0 mls/hr Documented by: [id number] Admin: 01/08/20 01:42 Dose: 75 mls/hr Documented by: [id number] Ampicillin Sodium/Sulbactam Sodium 3,000 mg/ Sodium Chloride 108 mls @ 216 mls/hr IV Q6H TOÑITO Stop: 01/15/20 05:59 Last Infusion: 01/08/20 05:33 Dose: 0 mls/hr Documented by: [id number] Admin: 01/08/20 05:00 Dose: 216 mls/hr Documented by: [id number] Discontinued Medications Acetaminophen (Tylenol) 650 mg PO NOW STA Stop: 01/07/20 22:44 Last Admin: 01/07/20 23:10 Dose: 650 mg Documented by: [id number] Sodium Chloride (Nss 1000ml) 1,000 mls @ 999 mls/hr IV .Q1H1M TOÑITO Stop: 01/07/20 23:45 Last Infusion: 01/07/20 23:48 Dose: 0 mls/hr Documented by: [id number] Admin: 01/07/20 23:10 Dose: 999 mls/hr Documented by: [id number] Ampicillin Sodium/Sulbactam Sodium 3,000 mg/ Sodium Chloride 108 mls @ 200 mls/hr IV NOW STA; Protocol Stop: 01/07/20 23:15 Last Infusion: 01/08/20 00:18 Dose: 0 mls/hr Documented by: [id number] Admin: 01/07/20 23:46 Dose: 200 mls/hr Documented by: [id number] Magnesium Sulfate/Dextrose (Magnesium Sulfate / D5w) 1 gm in 100 mls @ 100 mls/hr IV Q1H TOÑITO Stop: 01/08/20 04:11 Last Infusion: 01/08/20 04:58 Dose: 0 mls/hr Documented by: [id number] Admin: 01/08/20 03:44 Dose: 100 mls/hr Documented by: [id number] Infusion: 01/08/20 03:44 Dose: 100 mls/hr Documented by: [id number] Admin: 01/08/20 02:48 Dose: 100 mls/hr Documented by: [id number] Infusion: 01/08/20 02:42 Dose: 100 mls/hr Documented by: [id number] Admin: 01/08/20 01:42 Dose: 100 mls/hr Documented by: [id number] Potassium Chloride (Klor-Con M10) 50 meq PO NOW STA Stop: 01/07/20 23:54 Last Admin: 01/08/20 00:51 Dose: 50 meq Documented by: [id number] Medical Decision Making Laboratory Data Result diagrams: 01/08/20 07:11 01/08/20 07:11 Lab Results 01/07/20 01/07/20 01/07/20 Range/Units 23:00 23:00 23:00 WBC (4.8-10.8) K/uL RBC (4.7-6.1) M/uL Hgb (14.0-18.0) g/dL Hct (42-52) % MCV (80-100) fL MCH (25-34) pg MCHC (32-36) g/dL RDW Std Deviation (36.4-46.3) fL RDW Coeff of Francia (11.5-14.5) % Plt Count (130-400) K/uL MPV (7.4-10.4) fL Immature Gran % (Auto) % Neut % (Auto) % Lymph % (Auto) % [place] % (Auto) % Eos % (Auto) % Baso % (Auto) % Immature Gran # (Auto) (0.00-0.02) K/uL Neut # (Auto) (1.4-6.5) K/uL Lymph # (Auto) (1.2-3.4) K/uL [place] # (Auto) (0.11-0.59) K/uL Eos # (Auto) (0-0.5) K/uL Baso # (Auto) (0-0.2) K/uL ESR (0-14) mm/hr Sodium 133 L (136-145) mmol/L Potassium 3.0 L (3.5-5.1) mmol/L Chloride 99 (98-107) mmol/L Carbon Dioxide 28 (21-32) mmol/L Anion Gap 6.0 (3-11) BUN 8 (7-18) mg/dl Creatinine 0.73 (0.6-1.4) mg/dl Est Cr Clr Drug Dosing 98.1 ml/min Est GFR ( Amer) 115.2 Est GFR (Non-Af Amer) 99.4 BUN/Creatinine Ratio 11.3 (10-20) Glucose 103 H (70-99) mg/dl Lactate 0.7 (0.4-2.0) mmol/L Calcium 8.9 (8.5-10.1) mg/dl Magnesium 1.3 L (1.8-2.4) mg/dl Total Bilirubin 0.4 (0.2-1) mg/dl AST 26 (15-37) U/L ALT 39 (12-78) U/L Alkaline Phosphatase 83 (45-117) U/L C-Reactive Protein 4.62 H (0-0.29) mg/dl Total Protein 8.5 H (6.4-8.2) gm/dl Albumin 3.5 (3.4-5.0) gm/dl Globulin 5.0 H (2.5-4.0) gm/dl Albumin/Globulin Ratio 0.7 L (0.9-2) Procalcitonin < 0.05 (0-0.5) ng/ml 01/07/20 01/07/20 Range/Units 23:00 23:00 WBC 10.81 H (4.8-10.8) K/uL RBC 4.53 L (4.7-6.1) M/uL Hgb 14.4 (14.0-18.0) g/dL Hct 40.5 L (42-52) % MCV 89.4 (80-100) fL MCH 31.8 (25-34) pg MCHC 35.6 (32-36) g/dL RDW Std Deviation 38.3 (36.4-46.3) fL RDW Coeff of Francia 11.8 (11.5-14.5) % Plt Count 295 (130-400) K/uL MPV 10.5 H (7.4-10.4) fL Immature Gran % (Auto) 0.2 % Neut % (Auto) 82.1 % Lymph % (Auto) 8.2 % [place] % (Auto) 8.5 % Eos % (Auto) 0.6 % Baso % (Auto) 0.4 % Immature Gran # (Auto) 0.02 (0.00-0.02) K/uL Neut # (Auto) 8.87 H (1.4-6.5) K/uL Lymph # (Auto) 0.89 L (1.2-3.4) K/uL [place] # (Auto) 0.92 H (0.11-0.59) K/uL Eos # (Auto) 0.07 (0-0.5) K/uL Baso # (Auto) 0.04 (0-0.2) K/uL ESR 83 H (0-14) mm/hr Sodium (136-145) mmol/L Potassium (3.5-5.1) mmol/L Chloride (98-107) mmol/L Carbon Dioxide (21-32) mmol/L Anion Gap (3-11) BUN (7-18) mg/dl Creatinine (0.6-1.4) mg/dl Est Cr Clr Drug Dosing ml/min Est GFR ( Amer) Est GFR (Non-Af Amer) BUN/Creatinine Ratio (10-20) Glucose (70-99) mg/dl Lactate (0.4-2.0) mmol/L Calcium (8.5-10.1) mg/dl Magnesium (1.8-2.4) mg/dl Total Bilirubin (0.2-1) mg/dl AST (15-37) U/L ALT (12-78) U/L Alkaline Phosphatase (45-117) U/L C-Reactive Protein (0-0.29) mg/dl Total Protein (6.4-8.2) gm/dl Albumin (3.4-5.0) gm/dl Globulin (2.5-4.0) gm/dl Albumin/Globulin Ratio (0.9-2) Procalcitonin (0-0.5) ng/ml Imaging Data My Impression: No fracture or dislocation of the hand or forearm. Edema noted. MDM Narrative Patient was seen and evaluated as above in room B06. Review was performed of nursing notes and vital signs. After obtaining a thorough history and physical examination the above work up was performed. He presents to us today status post cat bite. This was just under 12 hours ago but unfortunately there appears to be rapid progression of an infection involving the right upper extremity from 3 separate cat bite regions. He also has an abrasion/tear type wound to the left anterior chest patient notes is from a cat scratch. He believes his tetanus is up-to-date. X-ray was obtained of the right upper extremity, specifically the right hand and right forearm and there is edema but no foreign body noted that is radiopaque. The cat's rabies vaccinations he states are up-to-date. The patient's vital signs do reveal tachycardia and a febrile state. I believe this is from the infection of the right upper extremity. IV Unasyn was empirically ordered. WBC mildly elevated. ESR and CRP are elevated. Pro-Jeff and lactic acid are within normal limits. I do believe the patient should be admitted to the hospital for further evaluation and management and IV antibiotics given his presentation here today. Patient was in agreement and happy with plan of care. I did thoroughly cleanse the wounds with sterile saline and Betadine. Case discussed with the hospitalist. Please refer to further documentation regarding his stay. In the evaluation and treatment of this patient the following differential diagnoses were entertained: Fracture, dislocation, subluxation, contusion, cat bite, sepsis, cellulitis, foreign body, among others. Impression & Plan Cat bite, Cellulitis of arm, right Discharge Plan Visit Data *Final* Discharge Date/Time: 01/08/20 00:47 Chief Complaint: Animal Bite Stated Complaint: GOT BIT BY CAT ON ON RIGHT ARM/HAND - FEVER ED Provider: Mahin Gonzalez ED Midlevel Provider: Sean Tiwari Discharge Problem: Cat bite, Cellulitis of arm, right Patient Disposition: Admitted As Inpatient Condition: Good Discharge Instructions Interventions: ED Discharge Assessment Last Done: 01/08/20 00:47
[2020-01-07 23:14] LABS: Basophils # (auto) 0.04 K/uL (0-0.2); Basophils % (auto) 0.4 %; Eosinophils # (auto) 0.07 K/uL (0-0.5); Eosinophils % (auto) 0.6 %; Hematocrit (blood only) 40.5 % (42-52); Hemoglobin 14.4 g/dL (14.0-18.0); Immature Granulocytes # (auto) 0.02 K/uL (0.00-0.02); Immature Granulocytes % (auto) 0.2 %; Lymphocytes # (auto) 0.89 K/uL (1.2-3.4); Lymphocytes % (auto) 8.2 %; Mean Corpuscular Hemoglobin 31.8 pg (25-34); Mean Corpuscular Hgb Conc 35.6 g/dL (32-36); Mean Corpuscular Volume 89.4 fL (80-100); Mean Platelet Volume 10.5 fL (7.4-10.4); Monocytes # (auto) 0.92 K/uL (0.11-0.59); Monocytes % (auto) 8.5 %; Neutrophils # (auto) 8.87 K/uL (1.4-6.5); Neutrophils % (auto) 82.1 %; Platelet Count 295 K/uL (130-400); RDW Coefficient of Variation 11.8 % (11.5-14.5); RDW Standard Deviation 38.3 fL (36.4-46.3); Red Blood Count 4.53 M/uL (4.7-6.1); White Blood Count 10.81 K/uL (4.8-10.8)
[2020-01-07 23:36] LABS: Albumin Level 3.5 gm/dl (3.4-5.0); BUN Creatinine Ratio 11.3 (10-20); Calcium 8.9 mg/dl (8.5-10.1); Creatinine Clr Calc Pharmacy 98.1 ml/min; Est GFR (African American) 115.2; Est GFR (Non-African American) 99.4
[2020-01-07 23:38] LABS: Albumin Globulin Ratio 0.7 (0.9-2); Bilirubin,Total 0.4 mg/dl (0.2-1); C Reactive Protein 4.62 mg/dl (0-0.29); Total Protein 8.5 gm/dl (6.4-8.2)
[2020-01-07] MEDS ORDERED: POTASSIUM CHLORIDE 10 MEQ TABCR PO STA (23:53)
[2020-01-08 00:01] LABS: Magnesium 1.3 mg/dl (1.8-2.4)
--- NOTE | 2020-01-08 00:29 | History & Physical Report ---
Date of Service January 08, 2020 Assessment & Plan (1) Sepsis: Secondary to cat bite cellulitis hypertension, stable Hypokalemia secondary to diuretic Rx chronic LBBB COPD, stable past tobacco abuse prediabetes, hemoglobin A1c of 6.15 April 2019. Medical telemetry Cultures, Unasyn Local measures for RUE cellulitis Orthopedics consult with worsening Replace electrolytes, hold home diuretics for now DVT prophylaxis Lovenox subcu Full code Text document was generated using [employer] voice recognition software. It may contain grammatical or spelling errors. Kindly contact undersigned for clarification of any documentation item in question. History of Present Illness Chief Complaint: Right arm swelling, X Primary Care Provider: Barbara Eid History obtained from patient and records. Medical history significant for hypertension, chronic LBBB, COPD, mild RILEY as per records, past tobacco abuse, prediabetes as per records. Last confinement 2016 for COPD exacerbation. Patient got bit by his 's cat on his right arm today as he was trying to get the cat into a kennel as patient and family were about to go home from a camping trip. Subsequent swelling noted on the right arm with fever chills at home. No chest pain, no S OB. At the ER, patient received Unasyn for sepsis. 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 Allergies Allergy/AdvReac Type Severity Reaction Status Date / Time ABRAM Inhibitors Allergy Intermediate elevates k+ Verified 01/07/20 23:00 Home Medications Home Medications Medication Instructions Recorded Confirmed Type aspirin [Aspir-81] 81 mg PO DAILY 03/17/19 01/07/20 History chlorthalidone 25 mg PO DAILY 03/17/19 01/07/20 History metoprolol succinate 50 mg PO DAILY 03/17/19 01/07/20 History multivitamin 1 tab PO DAILY 03/17/19 01/07/20 History omeprazole 20 mg PO DAILY 03/17/19 01/07/20 History fluticasone propionate 2 spray INTRANASAL DAILY 01/07/20 01/07/20 History montelukast 10 mg PO DAILY 01/07/20 01/07/20 History umeclidinium [Incruse Ellipta] 1 inh INHALATION DAILY 01/07/20 01/07/20 History Past Med/Surg History Medical History (Updated 01/08/20 @ 07:37 by Darnell Noonan MD) COPD (chronic obstructive pulmonary disease) (Chronic) Heart disease (Chronic) Hypertension (Chronic) Surgical History (Updated 01/08/20 @ 08:38 by Sean Tiwari PA-C) No pertinent past surgical history Family History (Updated 03/17/19 @ 20:57 by Young Merino) Other Cancer Diabetes Hypertension Social History Preferred Language: Divehi Communication Ability: Effective Beliefs That Will Affect Care: None Current Living Situation: Spouse Other Information That Helps Us Care for You: No Feels Safe at Home: Yes Safety Concerns: Feels Safe At This Time Smoking Status: Former smoker Tobacco Type: cigarettes ; Do You Dip or Chew Tobacco: No ; Second Hand Exposure: Yes ; Hx Alcohol Use: Yes Alcohol type: beer Hx Substance Use: No Review of Systems Review of Systems: As per HPI, all 10 systems reviewed, all other ROS negative Physical Exam Physical Exam: GENERAL: Comfortable, pleasant, no respiratory distress SKIN: Normal color, warm HEENT: [place] palpebral conjunctivae, no ptosis, dry buccal mucosa NECK : Supple, no tenderness CHEST : Decreased breath sounds , no tenderness HEART : RRR, no obvious murmurs ABDOMEN: Soft, nontender EXTREMITIES : Animal bite wound noted on right hand dorsum, right forearm swelling with streaking with some tenderness, no other conspicuous deformities noted NEUROLOGIC : Coherent, no facial asymmetry, no other gross focality Results & Data Results & Data ([facility]) Vital Signs (Past 12 Hours) Vital Signs Temp Pulse Resp BP Pulse Ox 01/08/20 00:16 36.8 C 01/07/20 23:14 98 01/07/20 23:07 99 H 21 131/77 01/07/20 23:06 96 H 19 01/07/20 22:27 37.7 C H 111 H 20 149/88 H 91 Laboratory Results Laboratory Results WBC 10.81 K/uL (4.8-10.8) H 01/07/20 23:00 RBC 4.53 M/uL (4.7-6.1) L 01/07/20 23:00 Hgb 14.4 g/dL (14.0-18.0) 01/07/20 23:00 Hct 40.5 % (42-52) L 01/07/20 23:00 MCV 89.4 fL (80-100) 01/07/20 23:00 MCH 31.8 pg (25-34) 01/07/20 23:00 MCHC 35.6 g/dL (32-36) 01/07/20 23:00 RDW Std Deviation 38.3 fL (36.4-46.3) 01/07/20: RDW Coeff of Francia 11.8 % (11.5-14.5) 01/07/20: Plt Count 295 K/uL (130-400) 01/07/20:00 MPV 10.5 fL (7.4-10.4) H 01/07/20 23:00 Immature Gran % (Auto) 0.2 % 01/07/20 23:00 Neut % (Auto) 82.1 % 01/07/20:00 Lymph % (Auto) 8.2 % 01/07/20:00 [place] % (Auto) 8.5 % 01/07/20:00 Eos % (Auto) 0.6 % 01/07/20 23:00 Baso % (Auto) 0.4 % 01/07/20 23:00 Immature Gran # (Auto) 0.02 K/uL (0.00-0.02) 01/07/20 23:00 Neut # (Auto) 8.87 K/uL (1.4-6.5) H 01/07/20 23:00 Lymph # (Auto) 0.89 K/uL (1.2-3.4) L 01/07/20 23:00 [place] # (Auto) 0.92 K/uL (0.11-0.59) H 01/07/20 23:00 Eos # (Auto) 0.07 K/uL (0-0.5) 01/07/20 23:00 Baso # (Auto) 0.04 K/uL (0-0.2) 01/07/20 23:00 ESR 83 mm/hr (0-14) H 01/07/20 23:00 Sodium 133 mmol/L (136-145) L 01/07/20 23:00 Potassium 3.0 mmol/L (3.5-5.1) L 01/07/20 23:00 Chloride 99 mmol/L (98-107) 01/07/20 23:00 Carbon Dioxide 28 mmol/L (21-32) 01/07/20 23:00 Anion Gap 6.0 (3-11) 01/07/20 23:00 BUN 8 mg/dl (7-18) 01/07/20 23:00 Creatinine 0.73 mg/dl (0.6-1.4) 01/07/20 23:00 Est Cr Clr Drug Dosing 98.1 ml/min 01/07/20 23:00 Est GFR ( Amer) 115.2 01/07/20 23:00 Est GFR (Non-Af Amer) 99.4 01/07/20 23:00 BUN/Creatinine Ratio 11.3 (10-20) 01/07/20 23:00 Glucose 103 mg/dl (70-99) H 01/07/20 23:00 Lactate 0.7 mmol/L (0.4-2.0) 01/07/20 23:00 Calcium 8.9 mg/dl (8.5-10.1) 01/07/20: Magnesium 1.3 mg/dl (1.8-2.4) L 01/07/20 23:00 Total Bilirubin 0.4 mg/dl (0.2-1) 01/07/20 23:00 AST 26 U/L (15-37) 01/07/20 23:00 ALT 39 U/L (12-78) 01/07/20 23:00 Alkaline Phosphatase 83 U/L (45-117) 01/07/20 23:00 C-Reactive Protein 4.62 mg/dl (0-0.29) H 01/07/20 23:00 Total Protein 8.5 gm/dl (6.4-8.2) H 01/07/20 23:00 Albumin 3.5 gm/dl (3.4-5.0) 01/07/20 23:00 Globulin 5.0 gm/dl (2.5-4.0) H 01/07/20 23:00 Albumin/Globulin Ratio 0.7 (0.9-2) L 01/07/20 23:00 Procalcitonin < 0.05 ng/ml (0-0.5) 01/07/20 23:00 Diagnostic Findings Right hand/forearm x-ray as per my interpretation : Swelling with some gas
[2020-01-08] MEDS ORDERED: KETOROLAC TROMETHAMINE 15 MG/ML VIAL IV PRN (01:12)
[2020-01-08] MEDS ORDERED: PROMETHAZINE HCL 12.5 MG in SODIUM CHLORIDE 0.9% 50 ML IV PRN (01:12)
[2020-01-08] MEDS ORDERED: POTASSIUM CHLORIDE 40 MEQ in SODIUM CHLORIDE 0.9% 1000ML 1,000 ML IV ONE (01:12)
[2020-01-08] MEDS ORDERED: IBUPROFEN 200 MG TAB PO PRN (01:12)
[2020-01-08] MEDS ORDERED: AMPICILLIN/SULBACTAM CONSULT ACTIVE PRN (01:20)
[2020-01-08] MEDS: MAGNESIUM SULFATE / D5W 1 GM/100 ML BAG IV SCH ×3 (01:42→03:44)
[2020-01-08] MEDS: AMPICILLIN/SULBACTAM SOD 3,000 MG in 0.9 % SODIUM CHLORIDE 100 ML IV SCH ×4 (05:00→23:51)
[2020-01-08 07:29] LABS: Basophils # (auto) 0.02 K/uL (0-0.2); Basophils % (auto) 0.3 %; Eosinophils # (auto) 0.05 K/uL (0-0.5); Eosinophils % (auto) 0.7 %; Hematocrit (blood only) 40.5 % (42-52); Hemoglobin 14.4 g/dL (14.0-18.0); Immature Granulocytes # (auto) 0.01 K/uL (0.00-0.02); Immature Granulocytes % (auto) 0.1 %; Lymphocytes # (auto) 1.19 K/uL (1.2-3.4); Lymphocytes % (auto) 16.1 %; Mean Corpuscular Hemoglobin 32.1 pg (25-34); Mean Corpuscular Hgb Conc 35.6 g/dL (32-36); Mean Corpuscular Volume 90.4 fL (80-100); Mean Platelet Volume 10.4 fL (7.4-10.4); Monocytes # (auto) 0.99 K/uL (0.11-0.59); Monocytes % (auto) 13.4 %; Neutrophils # (auto) 5.14 K/uL (1.4-6.5); Neutrophils % (auto) 69.4 %; Platelet Count 289 K/uL (130-400); RDW Standard Deviation 39.5 fL (36.4-46.3); Red Blood Count 4.48 M/uL (4.7-6.1)
[2020-01-08 07:38] LABS: INR 1.1 (0.9-1.1); Prothrombin Time 11.3 Seconds (9.0-12.0)
--- NOTE | 2020-01-08 07:43 | XRay Report ---
XR hand RT min 3V routine CLINICAL HISTORY: Cat bite, pain, infection COMPARISON: None. DISCUSSION: No acute fractures or dislocations are visualized. There is gas present within the dorsal soft tissues consistent with a soft tissue infection. No radiopaque foreign bodies are visualized. N o bony destructive changes are evident IMPRESSION: 1. No acute fractures 2. Dorsal soft tissue gas, concerning for deep soft tissue infection. ACT 112: Negative or not required by law. Electronically signed by: Kwasi Chung M.D. 01/08/2020 7:42 AM
--- NOTE | 2020-01-08 07:54 | XRay Report ---
XR forearm RT 2V HISTORY: 64 years-old Male Cat bite, pain, infection acute pain and swelling of the right forearm COMPARISON: Right hand radiographs of same day TECHNIQUE: 2 views of the right forearm FINDINGS: Soft tissue swelling with deep tissue gas involves the dorsal hand. No opaque foreign body. Dystrophi c calcifications are seen adjacent to the lateral epicondyle of the humerus suggestive of calcificati ons involving the common extensor. No acute fracture or dislocation. IMPRESSION: 1. No acute fracture or dislocation. 2. Soft tissue swelling with subcutaneous emphysema of the dorsal hand. ACT 112: Negative or not required by law. The above report was generated using voice recognition software. It may contain grammatical, syntax o r spelling errors. Electronically signed by: Adolfo Marlow M.D. 01/08/2020 7:52 AM
[2020-01-08 07:57] LABS: BUN Creatinine Ratio 11.5 (10-20); Creatinine Clr Calc Pharmacy 125.6 ml/min; Est GFR (African American) 127.6; Est GFR (Non-African American) 110.1; Magnesium 2.6 mg/dl (1.8-2.4); Potassium 3.7 mmol/L (3.5-5.1)
[2020-01-08] MEDS ORDERED: ENOXAPARIN INJ 30 MG/0.3 ML SYR SQ SCH (09:00)
[2020-01-08] MEDS: ASPIRIN 81 MG ECTAB PO SCH (09:05)
[2020-01-08] MEDS: MULTIVITAMIN TAB PO SCH (09:06)
[2020-01-08] MEDS: MONTELUKAST SODIUM 10 MG TABLET PO SCH (09:06)
[2020-01-08] MEDS: PANTOprazole 40 MG TAB PO SCH (09:06)
[2020-01-08] MEDS: METOPROLOL SUCC 50MG EXT REL TAB PO SCH (09:06)
[2020-01-08] MEDS: ENOXAPARIN INJ 40 MG/0.4 ML SYR SQ SCH (09:06)
[2020-01-08] MEDS: UMECLIDINIUM BROMIDE 62.5MCG/BLISTER 7 PUFFS/INHALER INH SCH (09:10)
--- NOTE | 2020-01-08 14:40 | Hospitalist Progress Note ---
Date of Service January 08, 2020 Assessment & Plan (1) Sepsis: Sepsis Right Upper Extremity Cellulitis Secondary to Cat Bite Forearm X ray:No acute fracture or dislocation. Soft tissue swelling with subcutaneous emphysema of the dorsal hand. Hand X Ray:No acute fractures. Dorsal soft tissue gas, concerning for deep soft tissue infection. Blood Cultures:Pending Received IV fluids Continue Unasyn Pain control Consider orthopedics evaluation, if clinically worsens. Hypokalemia Hypomagnesemia Likely due to diuretic use Replete electrolytes as needed Hypertension Chlorthalidone on hold BP stable Monitor Chronic LBBB No acute issues COPD Stable past tobacco abuse No signs of acute exacerbation Continue home inhalers Prediabetes HbA1C of 6.15 April 2019. DVT Px; Lovenox SQ Code Status Full code Disposition Expected discharge home when medically stable. Admission and Anticipated Discharge Date Admission Date: January 08, 2020 Subjective Patient is seen and examined at bedside Right arm pain is controlled Right arm erythema/swelling slowly improving Denies any chest pain, SOB, dizziness, nausea, abdominal pain Offers no new complaints Review of Systems Review of Systems: All systems reviewed & are unremarkable except as noted in HPI & below Physical Exam Physical Exam: Physical Exam: Vitals signs as noted above General Appearance:Moderately built and nourished, no apparent distress Head: normocephalic, Atraumatic Eyes: normal inspection, EOMI Neck: supple, Trachea midline Respiratory/Chest: Normal breath sounds, CTA, No accessory muscle use Cardiovascular: S1, S2, No murmur Abdomen/GI:Soft, Non tender, Bowel sounds present Extremities/Musculoskelatal:normal inspection, no pedal edema, RUE swelling, +erythema, tender, +Multiple bit wounds Neurologic/Psych:AAOX3, grossly no focal neurological deficits Skin: normal color, warm Results & Data Results & Data ([facility]) Vital Signs (Past 12 Hours) Vital Signs Temp Pulse Pulse Resp BP Pulse Ox 01/08/20 12:16 36.8 C 71 20 137/77 91 01/08/20 08:00 74 01/08/20 07:06 36.7 C 78 15 149/78 H 94 01/08/20 03:23 36.7 C 74 15 119/70 93 Laboratory Results Short CBC 01/07/20 01/08/20 Range/Units 23:00 07:11 WBC 10.81 H 7.40 (4.8-10.8) K/uL Hgb 14.4 14.4 (14.0-18.0) g/dL Hct 40.5 L 40.5 L (42-52) % Plt Count 295 289 (130-400) K/uL BMP 01/07/20 01/08/20 23:00 07:11 Sodium 133 L 135 L Potassium 3.0 L 3.7 D Chloride 99 104 Carbon Dioxide 28 24 BUN 8 7 Creatinine 0.73 0.57 L Glucose 103 H 98 Calcium 8.9 9.0 Liver Function 01/07/20 Range/Units 23:00 Total Bilirubin 0.4 (0.2-1) mg/dl AST 26 (15-37) U/L ALT 39 (12-78) U/L Alkaline Phosphatase 83 (45-117) U/L Albumin 3.5 (3.4-5.0) gm/dl
[2020-01-08] MEDS: ACETAMINOPHEN 325 MG TAB PO PRN (23:55)
[2020-01-09] MEDS: AMPICILLIN/SULBACTAM SOD 3,000 MG in 0.9 % SODIUM CHLORIDE 100 ML IV SCH ×4 (06:09→23:44)
[2020-01-09 06:29] LABS: Hematocrit (blood only) 40.5 % (42-52); Hemoglobin 13.9 g/dL (14.0-18.0); Mean Corpuscular Hemoglobin 31.2 pg (25-34); Mean Corpuscular Hgb Conc 34.3 g/dL (32-36); Mean Corpuscular Volume 90.8 fL (80-100); Mean Platelet Volume 10.2 fL (7.4-10.4); Platelet Count 271 K/uL (130-400); RDW Coefficient of Variation 11.9 % (11.5-14.5); RDW Standard Deviation 40.2 fL (36.4-46.3); Red Blood Count 4.46 M/uL (4.7-6.1); White Blood Count 7.87 K/uL (4.8-10.8)
[2020-01-09 06:56] LABS: BUN Creatinine Ratio 15.4 (10-20); Creatinine Clr Calc Pharmacy 108.5 ml/min; Est GFR (African American) 120.1; Est GFR (Non-African American) 103.6; Magnesium 2.1 mg/dl (1.8-2.4); Potassium 3.8 mmol/L (3.5-5.1)
[2020-01-09] MEDS: UMECLIDINIUM BROMIDE 62.5MCG/BLISTER 7 PUFFS/INHALER INH SCH (08:47)
[2020-01-09] MEDS: METOPROLOL SUCC 50MG EXT REL TAB PO SCH (08:47)
[2020-01-09] MEDS: MONTELUKAST SODIUM 10 MG TABLET PO SCH (08:47)
[2020-01-09] MEDS: ASPIRIN 81 MG ECTAB PO SCH (08:47)
[2020-01-09] MEDS: MULTIVITAMIN TAB PO SCH (08:47)
[2020-01-09] MEDS: PANTOprazole 40 MG TAB PO SCH (08:47)
[2020-01-09] MEDS: ENOXAPARIN INJ 40 MG/0.4 ML SYR SQ SCH (08:47)
[2020-01-09] MEDS: ACETAMINOPHEN 325 MG TAB PO PRN (23:49)
[2020-01-10] MEDS: AMPICILLIN/SULBACTAM SOD 3,000 MG in 0.9 % SODIUM CHLORIDE 100 ML IV SCH (05:23)
[2020-01-10] MEDS: UMECLIDINIUM BROMIDE 62.5MCG/BLISTER 7 PUFFS/INHALER INH SCH (09:13)
[2020-01-10] MEDS: PANTOprazole 40 MG TAB PO SCH (09:14)
[2020-01-10] MEDS: ENOXAPARIN INJ 40 MG/0.4 ML SYR SQ SCH (09:14)
[2020-01-10] MEDS: MULTIVITAMIN TAB PO SCH (09:14)
[2020-01-10] MEDS: ASPIRIN 81 MG ECTAB PO SCH (09:14)
[2020-01-10] MEDS: METOPROLOL SUCC 50MG EXT REL TAB PO SCH (09:14)
[2020-01-10] MEDS: MONTELUKAST SODIUM 10 MG TABLET PO SCH (09:14)
--- NOTE | 2020-01-10 11:26 | Hospitalist Progress Note ---
Date of Service January 09, 2020 Assessment & Plan (1) Sepsis: Sepsis Right Upper Extremity Cellulitis Secondary to Cat Bite Forearm X ray:No acute fracture or dislocation. Soft tissue swelling with subcutaneous emphysema of the dorsal hand. Hand X Ray:No acute fractures. Dorsal soft tissue gas, concerning for deep soft tissue infection. Blood Cultures:Pending Received IV fluids Continue Unasyn Pain control Will need a day or 2 more for improvement Hypokalemia Hypomagnesemia Likely due to diuretic use Replete electrolytes as needed EYES: Pupils round equal and react to light, extraocular movements full, no injection. Hypertension Chlorthalidone on hold BP stable Monitor Chronic LBBB No acute issues COPD past tobacco abuse No signs of acute exacerbation Continue home inhalers Prediabetes HbA1C of 6.15 April 2019. DVT Px; Lovenox SQ Code Status Full code Disposition Expected discharge home when medically stable. Likely discharge tomorrow Admission and Anticipated Discharge Date Admission Date: January 08, 2020 Subjective The patient was seen and examined on of this month Complains of increasing swelling and pain involving the right upper extremity Review of Systems Review of Systems: All systems reviewed and are unremarkable except as noted below Musculoskeletal: Swelling of the right hand and right forearm with increasing warmth and tenderness Physical Exam Physical Exam: Sitting on a chair without any acute symptoms Constitutional: well developed, well nourished and + ill appearing; no acute distress Eyes: PERRL, conjunctivae normal, anicteric sclerae ENMT: external ear and nose normal, oropharynx normal Neck: trachea midline, no thyromegaly Respiratory: no respiratory distress Auscultation: lungs clear to auscultation bilaterally Cardiovascular: Rate/Rhythm: regular rate and regular rhythm Heart Sounds: no murmur Gastrointestinal (Abdomen): Inspection/Auscultation: abdomen normal to inspection and normal bowel sounds; abdomen not distended Right hand and forearm are swollen Neurologic: moves all extremities; no focal motor deficits Results & Data Results & Data ([facility]) Vital Signs (Past 12 Hours) Vital Signs Temp Pulse Pulse Resp BP BP Pulse Ox 01/10/20 07:42 36.4 C L 68 16 111/66 93 01/10/20 04:00 36.6 C 77 18 143/87 H 95 01/10/20 00:26 75 01/10/20 00:11 36.3 C L 83 18 159/80 H 93
--- NOTE | 2020-01-10 11:48 | Hospitalist Progress Note ---
Date of Service January 10, 2020 Assessment & Plan (1) Sepsis: Sepsis Right Upper Extremity Cellulitis Secondary to Cat Bite Forearm X ray:No acute fracture or dislocation. Soft tissue swelling with subcutaneous emphysema of the dorsal hand. Hand X Ray:No acute fractures. Dorsal soft tissue gas, concerning for deep soft tissue infection. Blood Cultures: Negative Received IV fluids Continue Unasyn Pain control Will start oral Augmentin and discharged home this afternoon Hypokalemia Hypomagnesemia Likely due to diuretic use Replete electrolytes as needed Electrolytes have been normalized Hypertension Chlorthalidone on hold BP stable We will continue his current medications on discharge Chronic LBBB No acute issues COPD past tobacco abuse No signs of acute exacerbation Continue home inhalers Prediabetes HbA1C of 6.15 April 2019. DVT Px; Lovenox SQ Code Status Full code Disposition Expected discharge home when medically stable. Discharged home this afternoon Admission and Anticipated Discharge Date Admission Date: January 08, 2020 Subjective The patient was seen and examined on of this month Complains of increasing swelling and pain involving the right upper extremity 01/10/2020 The patient was seen and examined in medical floor He feels lot better today His right upper extremity swelling has gone down a lot Redness and warmth and tenderness have improved Review of Systems Review of Systems: All systems reviewed and are unremarkable except as noted below Musculoskeletal: Swelling of the right hand and right forearm with increasing warmth and tenderness-improved a lot Physical Exam Physical Exam: Sitting on a chair without any acute symptoms Constitutional: well developed, well nourished and + ill appearing; no acute distress Eyes: PERRL, conjunctivae normal, anicteric sclerae ENMT: external ear and nose normal, oropharynx normal Neck: trachea midline, no thyromegaly Respiratory: no respiratory distress Auscultation: lungs clear to auscultation bilaterally Cardiovascular: Rate/Rhythm: regular rate and regular rhythm Heart Sounds: no murmur Gastrointestinal (Abdomen): Inspection/Auscultation: abdomen normal to inspection and normal bowel sounds; abdomen not distended Musculoskeletal: Right upper extremity swelling and redness have improved Neurologic: moves all extremities; no focal motor deficits Results & Data Results & Data ([facility]) Vital Signs (Past 12 Hours) Vital Signs Temp Pulse Pulse Resp BP BP Pulse Ox 01/10/20 11:25 37 C 87 16 111/77 94 01/10/20 07:42 36.4 C L 68 16 111/66 93 01/10/20 04:00 36.6 C 77 18 143/87 H 95 01/10/20 00:26 75 01/10/20 00:11 36.3 C L 83 18 159/80 H 93 Medications Administered Current Inpatient Medications Acetaminophen (Tylenol) 650 mg PO Q4H PRN PRN Reason: Pain or Fever Stop: 02/07/20 01:11 Last Admin: 01/09/20 23:49 Dose: 650 mg Documented by: Aspirin (Ecotrin Ectab) 81 mg PO DAILY [facility] Stop: 02/07/20 08:59 Last Admin: 01/10/20 09:14 Dose: 81 mg Documented by: Enoxaparin Sodium (Lovenox) 40 mg SQ QAM [facility] Stop: 02/07/20 08:59 Last Admin: 01/10/20 09:14 Dose: Not Given Documented by: Promethazine HCl 12.5 mg/ (Sodium Chloride) 50.5 mls @ 202 mls/hr IV Q6H PRN PRN Reason: Nausea And Vomiting Stop: 02/07/20 01:11 Ampicillin Sodium/Sulbactam Sodium 3,000 mg/ Sodium Chloride 108 mls @ 216 mls/hr IV Q6H [facility] Stop: 01/15/20 05:59 Last Infusion: 01/10/20 05:54 Dose: Infused Documented by: Ibuprofen (Advil) 200 mg PO Q6H PRN PRN Reason: Mild Pain Stop: 02/07/20 01:11 Ketorolac Tromethamine (Toradol) 15 mg IV Q6H PRN PRN Reason: Pain Stop: 01/13/20 01:11 Metoprolol Succinate (Toprol Xl) 50 mg PO DAILY [facility] Stop: 02/07/20 08:59 Last Admin: 01/10/20 09:14 Dose: 50 mg Documented by: Miscellaneous Information (Ampicillin/Sulbactam Consult) 1 ea N/A UD PRN PRN Reason: Consult Stop: 02/07/20 01:19 Montelukast Sodium (Singulair) 10 mg PO DAILY [facility] Stop: 02/07/20 08:59 Last Admin: 01/10/20 09:14 Dose: 10 mg Documented by: Multivitamins (Multivitamin Tab) 1 tab PO DAILY [facility] Stop: 02/07/20 08:59 Last Admin: 01/10/20 09:14 Dose: 1 tab Documented by: Pantoprazole Sodium (Protonix) 40 mg PO DAILY [facility] Stop: 02/07/20 08:59 Last Admin: 01/10/20 09:14 Dose: 40 mg Documented by: Umeclidinium [place] (Incruse Ellipta) 1 puffs INH DAILY [facility] Stop: 02/07/20 08:59 Last Admin: 01/10/20 09:13 Dose: 1 puffs Documented by:
[2020-01-10] MEDS ORDERED: AMOXICILLIN/CLAVULANATE 875 MG TAB PO ONE (12:15)
[2020-01-10] MEDS ORDERED: AMOXICILLIN/CLAVULANATE 875 MG TAB PO SCH (17:00)
--- NOTE | 2020-01-11 07:42 | Discharge Summary ---
Date of Service January 11, 2020 Admission HPI Per Admitting Provider History obtained from patient and records. Medical history significant for hypertension, chronic LBBB, COPD, mild RILEY as per records, past tobacco abuse, prediabetes as per records. Last confinement 2016 for COPD exacerbation. Patient got bit by his 's cat on his right arm today as he was trying to get the cat into a kennel as patient and family were about to go home from a camping trip. Subsequent swelling noted on the right arm with fever chills at home. No chest pain, no S OB. At the ER, patient received Unasyn for sepsis. Medical History as above Surgical History : None Family History : Liver cancer, stroke, prostate cancer Personal/Social history : Past tobacco abuse, daily alcohol intake but denies abuse, [email or web address] employee Admission Exam Per Admitting Provider Physical Exam: GENERAL: Comfortable, pleasant, no respiratory distress SKIN: Normal color, warm HEENT: [place] palpebral conjunctivae, no ptosis, dry buccal mucosa NECK : Supple, no tenderness CHEST : Decreased breath sounds , no tenderness HEART : RRR, no obvious murmurs ABDOMEN: Soft, nontender EXTREMITIES : Animal bite wound noted on right hand dorsum, right forearm swelling with streaking with some tenderness, no other conspicuous deformities noted NEUROLOGIC : Coherent, no facial asymmetry, no other gross focality Principal Diagnosis Right upper extremity cellulitis secondary to cat bite Discharge Exam Constitutional well developed, well nourished and + ill appearing; no acute distress Eyes PERRL, conjunctivae normal, anicteric sclerae ENMT external ear and nose normal, oropharynx normal Neck trachea midline, no thyromegaly Respiratory no respiratory distress Auscultation: lungs clear to auscultation bilaterally Cardiovascular Rate/Rhythm: regular rate and regular rhythm Heart Sounds: no murmur Gastrointestinal (Abdomen) Inspection/Auscultation: abdomen normal to inspection and normal bowel sounds; abdomen not distended Neurologic moves all extremities; no focal motor deficits Discharge Data Allergies Allergy/AdvReac Type Severity Reaction Status Date / Time ABRAM Inhibitors Allergy Intermediate elevates k+ Verified 01/07/20 23:00 Consultations 01/07/20 23:40 ED Decision to Admit Stat Hospital Course (1) Sepsis: Sepsis Right Upper Extremity Cellulitis Secondary to Cat Bite Forearm X ray:No acute fracture or dislocation. Soft tissue swelling with subcutaneous emphysema of the dorsal hand. Hand X Ray:No acute fractures. Dorsal soft tissue gas, concerning for deep soft tissue infection. Blood Cultures: Negative Received IV fluids Continue Unasyn Pain control Will start oral Augmentin and discharged home this afternoon Hypokalemia Hypomagnesemia Likely due to diuretic use Replete electrolytes as needed Electrolytes have been normalized Hypertension Chlorthalidone on hold BP stable We will continue his current medications on discharge Chronic LBBB No acute issues COPD past tobacco abuse No signs of acute exacerbation Continue home inhalers Prediabetes HbA1C of 6.15 April 2019. DVT Px; Lovenox SQ Code Status Full code Disposition Expected discharge home when medically stable. Discharged home this afternoon Total Time Total Time Spent Total Time Spent (In Minutes): 35 minutes Total Time Includes: Examination of the Patient, Discharge Planning and Medicati on Reconciliation Discharge Plan Discharge Items Patient Disposition: Home - Self-Care Reason For Visit: SEPSIS Discharge Diagnosis: Right upper extremity cellulitis secondary to cat bite Condition on Discharge: Good Activity: Resume your previous activity Activity Comment: Take it easy with your right upper extremity for the next few days Non-emergency contact: Primary Care Provider Call non-emergency contact if: you have any medication questions and your symptoms worsen Follow-up/Referrals: Yosef Rockwell, [Primary Care Provider] - 01/15/20 11:00 am (01/15/2020 11:00 AM Provider Cas Krishnamurthy MD Department Family Practice [facility] ) Diet: Regular Addtl Attending Provider Instructions: Try to keep your right hand elevated while sleeping Finish the course of antibiotic Pending Studies at Discharge: No Stand-Alone Forms: [facility], Work/School Release (Inpt), Smoking Cessation Medications and DC Order Prescriptions: New amoxicillin-pot clavulanate [Augmentin] 875-125 mg Tablet 1 tab PO BIDM 7 Days Qty: 14 RF: 0 Lactinex 1 million cell tablet,chewable 1 tab PO BID Qty: 30 RF: 0 Continued montelukast 10 mg tablet 10 mg PO DAILY RF: 0 fluticasone propionate 50 mcg/actuation spray,suspension 2 spray INTRANASAL DAILY RF: 0 Incruse Ellipta 62.5 mcg/actuation blister with device 1 inh INHALATION DAILY RF: 0 multivitamin Tablet 1 tab PO DAILY RF: 0 chlorthalidone 25 mg Tablet 25 mg PO DAILY RF: 0 aspirin [Aspir-81] 81 mg Tablet,Delayed Release (Dr/Ec) 81 mg PO DAILY RF: 0 omeprazole 20 mg Tablet,Delayed Release (Dr/Ec) 20 mg PO DAILY RF: 0 metoprolol succinate 50 mg Capsule,Sprinkle,Er 24hr 50 mg PO DAILY RF: 0 Discharge Orders: Discharge Order (Routine); Ordered 01/10/20 Ordered By: Alida Oscar Admission Data Admit Date/Time: 01/08/20 00:31 Attending Provider: Alida Oscar Admit Provider: Darnell Noonan Primary Care Provider: Yosef Rockwell Other Providers: Darnell Noonan ; Juni Ge Other Interventions: Discharge Summary Assessment (RN) Last Done: 01/10/20 13:22 DC Date/Time DO NOT enter until pt leaves facility: 01/10/20 14:07
== END 2020-01-10 14:07 | disposition home or self-care (01) | DRG 872 ==
LOC: ED 22:25 → 2N 01-08 00:31 → SUATTDRO 01-08 00:31 → 2N 01-08 00:47

== ENCOUNTER 2021-07-28 12:20 | Inpatient (IN) ==
[2021-07-28] MEDS ORDERED: methylPREDNISolone 125 MG/2 ML VIAL IV STA (12:46)
[2021-07-28] MEDS ORDERED: SODIUM CHLORIDE 0.9% 1000ML 1,000 ML IV SCH (13:00)
--- NOTE | 2021-07-28 13:02 | Emergency Department Note ---
History of Present Illness General Chief Complaint: Respiratory Problems Stated Complaint: SOB, CHEST PAIN, COUGH, FEVER, COVID + 07/26 Time Seen by Provider: 07/28/21 12:46 History of Present Illness Provider Complaint: shortness of breath and cough Onset (ago): week(s) (1) Consistency/Duration: + progressively worsening Relieved By: + nothing Exacerbated By: + exertion and + coughing Context: + recent illness (Diagnosed with COVID-19 on July 25, 2021) Known history of: COPD Associated symptoms: + chest pain, + fever, + cough, + wheezing, + sputum production, + nausea/vomiting and + chest congestion; no orthopnea, no polyuria, no polydipsia, no palpitations, no hemoptysis, no syncope or no abdominal pain Treatment prior to arrival: none Related Data Home oxygen amount: none Home Medications Medication Instructions Recorded Confirmed Type chlorthalidone 25 mg tablet 25 mg PO DAILY 03/17/19 07/28/21 History metoprolol succinate 50 mg capsule 50 mg PO DAILY 03/17/19 07/28/21 History sprinkle, ext. release 24 hr multivitamin 1 tab PO DAILY 03/17/19 07/28/21 History omeprazole 20 mg tablet,delayed 20 mg PO DAILY 03/17/19 07/28/21 History release fluticasone propionate 50 2 spray INTRANASAL DAILY PRN 01/07/20 07/28/21 History mcg/actuation nasal spray,suspension montelukast 10 mg tablet 10 mg PO DAILY 01/07/20 07/28/21 History umeclidinium 62.5 mcg/actuation 1 inh INHALATION DAILY 01/07/20 07/28/21 History blister powder for inhalation (Incruse Ellipta) Lactobacillus acidoph-L.bulgaricus 1 tab PO BID #30 tab 01/10/20 07/28/21 Rx 1 million cell chewable tablet (Lactinex) amoxicillin 875 mg tablet 875 mg PO BID 07/28/21 07/28/21 History aspirin 81 mg tablet,delayed 81 mg PO DAILY 07/28/21 07/28/21 History release Allergies Allergy/AdvReac Type Severity Reaction Status Date / Time ABRAM Inhibitors Allergy Intermediate elevates k+ Verified 07/28/21 13:51 Past Med/Surg History Medical History (Updated 07/28/21 @ 16:35 by Davide Oneal) COPD (chronic obstructive pulmonary disease) GERD (gastroesophageal reflux disease) Hypertension LBBB (left bundle branch block) Prediabetes Surgical History (Updated 07/28/21 @ 15:58 by Abby Owen PA-C) Hx of colonoscopy No pertinent past surgical history Family History Other Cancer Diabetes Hypertension Social History Smoking Status: Former smoker Second Hand Exposure: Yes; Hx Alcohol Use: Yes Alcohol type: beer Hx Substance Use: No Preferred Language: Lao Communication Ability: Effective Beliefs That Will Affect Care: None Current Living Situation: Spouse Feels Safe at Home: Yes Assistive Devices: Glasses Review of Systems A total of 10 systems reviewed and were otherwise negative Physical Exam Vital Signs: Vital Signs - 24 hr 07/28/21 12:40 07/28/21 13:16 07/28/21 13:17 Temperature 36.8 C Temperature Source Skin Pulse Rate Pulse Rate [Left F nick] 92 H Respiratory Rate 22 28 H Respiratory Effort / Characteristics Spontaneous Blood Pressure 104/64 Blood Pressure [Le ft Arm] 121/68 Blood Pressure Charleen n 77 Blood Pressure Charleen n [Left Arm] 85 Pulse Oximetry 79 L 95 Oxygen Delivery Me thod Room Air Nasal Cannula Oxymask Oxygen Flow Rate 6 6 Sepsis Recent Feve r Within 48 Hours Yes Sepsis New/Unexpla ined Change in Men isabella Status No Sepsis Action Take n by Nursing No Action Required 07/28/21 13:19 07/28/21 13:20 07/28/21 13:21 Temperature Temperature Source Pulse Rate 92 H Pulse Rate [Left F nick] 93 H Respiratory Rate 28 H 28 H 28 H Respiratory Effort / Characteristics Non-Labored Sponta neous Blood Pressure Blood Pressure [Le ft Arm] 121/68 Blood Pressure Charleen n Blood Pressure Charleen n [Left Arm] 85 Pulse Oximetry 95 95 95 Oxygen Delivery Me thod Oxymask Oxymask Oxymask Oxygen Flow Rate 6 6 6 Sepsis Recent Feve r Within 48 Hours Sepsis New/Unexpla ined Change in Men isabella Status Sepsis Action Take n by Nursing 07/28/21 13:36 07/28/21 14:50 07/28/21 15:29 Temperature Temperature Source Pulse Rate Pulse Rate [Left F nick] 94 H 96 H Respiratory Rate 18 24 Respiratory Effort / Characteristics Spontaneous Blood Pressure Blood Pressure [Le ft Arm] 127/80 Blood Pressure Charleen n Blood Pressure Charleen n [Left Arm] 95 Pulse Oximetry 91 86 L Oxygen Delivery Me thod Oxymask Oxymask Oxygen Flow Rate 6 6 Sepsis Recent Feve r Within 48 Hours Sepsis New/Unexpla ined Change in Men isabella Status Sepsis Action Take n by Nursing 07/28/21 15:32 Temperature Temperature Source Pulse Rate Pulse Rate [Left F nick] Respiratory Rate Respiratory Effort / Characteristics Blood Pressure Blood Pressure [Le ft Arm] Blood Pressure Charleen n Blood Pressure Charleen n [Left Arm] Pulse Oximetry 93 Oxygen Delivery Me thod Oxymask Oxygen Flow Rate Sepsis Recent Feve r Within 48 Hours Sepsis New/Unexpla ined Change in Men isabella Status Sepsis Action Take n by Nursing Physical Exam: Physical Exam HENT: Exam performed. - Head: Normocephalic and atraumatic. - Right Ear: External ear normal. No mastoid tenderness. - Left Ear: External ear normal. No mastoid tenderness. - Mouth/Throat: The oropharynx is clear and moist. No trismus in the jaw. No dental abscesses or uvula swelling. No oropharyngeal exudate or tonsillar abscesses. EYES: Conjunctivae and EOM are normal. Pupils are equal, round, and reactive to light. Right eye exhibits no discharge. Left eye exhibits no discharge. No scleral icterus. NECK: Normal range of motion. Neck supple. No JVD present. No spinous process tenderness present. No carotid bruit present. No rigidity. No tracheal deviation and normal range of motion present. No Brudzinski's sign and no Kernig's sign noted. CV: Normal rate, regular rhythm, normal heart sounds and intact distal pulses. There is no peripheral edema. Palpable radial pulses bue. PULM/CHEST: Tachypneic. Rhonchi bilaterally. Inspiratory rales bilaterally. - Chest Wall: He exhibits no tenderness. ABD: The abdomen is soft. Bowel sounds are normal. He has no distension. No mass is present. There is no tenderness. There is no rebound, no guarding, no Cardoza's sign and no tenderness at McBurney's point. Rovsig negative. MUSC/SKEL: Normal range of motion. There is no peripheral edema, tenderness or deformity. LYMPH: No cervical adenopathy. NEURO: He is alert and oriented to person, place, and time. He has normal strength. No cranial nerve deficit or sensory deficit. Coordination and gait normal. GCS eye subscore is 4. GCS verbal subscore is 5. GCS motor subscore is 6. Cerebellar tests wnl. SKIN: Skin is warm and dry. He is not diaphoretic. PSYCH: He has a normal mood and affect. Behavior is normal. Judgment and thought content normal. Course Course 1246: The patient was evaluated in room A10. A complete history and physical exam was performed Cardiac monitoring: An order was placed for continuous cardiac monitoring. The monitor shows a rate of 100 with sinus rhythm Patient was found to be hypoxic on room air. Patient was placed on supplemental oxygen which improved his oxygen saturation. IV steroids ordered for the patient given his hypoxia and recent COVID-19 diagnosis. 1524: Vital signs stable on supplemental oxygen. Labs within normal limits With the exception of sodium 127 potassium 3.2.. CTA negative for pulmonary embolus. Imaging does show bilateral groundglass opacities. Patient be admitted to the [facility] team. Administered Medications Discontinued Medications Sodium Chloride (Nss 1000ml) 1,000 mls @ 999 mls/hr IV .Q1H1M TOÑITO Stop: 07/28/21 14:00 Last Infusion: 07/28/21 15:57 Dose: 0 mls/hr Documented by: [id number] Admin: 07/28/21 13:24 Dose: 999 mls/hr Documented by: [id number] Ioversol (Optiray 320 125ml) 121 ml IV ONCE ONE Stop: 07/28/21 15:04 Last Admin: 07/28/21 15:05 Dose: 121 ml Documented by: [id number] Methylprednisolone (Methylprednisolone 125 Mg/2 Ml Vial) 125 mg IV NOW STA Stop: 07/28/21 12:47 Last Admin: 07/28/21 13:24 Dose: 125 mg Documented by: [id number] Medical Decision Making Laboratory Data Result diagrams: 07/28/21 13:14 07/28/21 13:14 Lab Results 07/28/21 07/28/21 07/28/21 Range/Units 13:00 13:14 13:14 WBC 4.55 L (4.8-10.8) K/uL RBC 4.58 L (4.7-6.1) M/uL Hgb 14.8 (14.0-18.0) g/dL Hct 41.4 L (42-52) % MCV 90.4 (80-100) fL MCH 32.3 (25-34) pg MCHC 35.7 (32-36) g/dL RDW Std Deviation 42.4 (36.4-46.3) fL RDW Coeff of Francia 12.7 (11.5-14.5) % Plt Count 225 (130-400) K/uL MPV 10.3 (7.4-10.4) fL Immature Gran % (Auto) 0.0 % Neut % (Auto) 84.2 % Lymph % (Auto) 7.7 % [place] % (Auto) 8.1 % Eos % (Auto) 0.0 % Baso % (Auto) 0.0 % Neut # (Auto) 3.83 (1.4-6.5) K/uL Lymph # (Auto) 0.35 L (1.2-3.4) K/uL [place] # (Auto) 0.37 (0.11-0.59) K/uL Eos # (Auto) 0.00 (0-0.5) K/uL Baso # (Auto) 0.00 (0-0.2) K/uL Immature Gran # (Auto) 0.00 (0.00-0.02) K/uL ESR (0-20) mm/hr PT 10.3 (9.0-12.0) Seconds INR 1.0 (0.9-1.1) APTT 31.6 H (21.0-31.0) Seconds PTT Ratio 1.2 VBG pH (7.36-7.41) VBG pCO2 (38-50) mmHg VBG pO2 mmHg VBG HCO3 mmol/L VBG O2 Saturation % VBG Base Excess mEq/L Barometric Pressure mm/Hg Sodium (136-145) mmol/L Potassium (3.5-5.1) mmol/L Chloride (98-107) mmol/L Carbon Dioxide (21-32) mmol/L Anion Gap (3-11) BUN (7-18) mg/dl Creatinine (0.6-1.4) mg/dl Est Cr Clr Drug Dosing ml/min Est GFR ( Amer) ml/min Est GFR (Non-Af Amer) ml/min BUN/Creatinine Ratio (10-20) Glucose (70-99) mg/dl Lactate (0.4-2.0) mmol/L Calcium (8.5-10.1) mg/dl Magnesium (1.8-2.4) mg/dl Total Bilirubin (0.2-1) mg/dl AST (15-37) U/L ALT (12-78) Alkaline Phosphatase (45-117) U/L Troponin I (0-0.045) ng/ml Total Protein (6.4-8.2) gm/dl Albumin (3.4-5.0) gm/dl Globulin (2.5-4.0) gm/dl Albumin/Globulin Ratio (0.9-2) Procalcitonin (0-0.5) ng/ml Urine Color Urine Appearance (Clear) Urine pH (4.5-7.5) Ur Specific Beyer (1.000-1.030) Urine Protein (Negative) Urine Glucose (UA) (Negative) Urine Ketones (Negative) Urine Blood (Negative) Urine Nitrite (Negative) Urine Bilirubin (Negative) Urine Urobilinogen (Negative) Ur Leukocyte Esterase (Negative) Urine WBC (Auto) (0-5) /hpf Urine RBC (Auto) (0-4) /hpf U Hyaline Cast (Auto) (0-5) /lpf U Epithel Cells (Auto) (0-5) /lpf Urine Bacteria (Auto) (Negative) SARS-CoV-2 (PCR) POSITIVE A* (Negative) Influenza Type A (PCR) Negative (Neg) Influenza Type B (PCR) Negative (Neg) RSV (RT-PCR) Negative (Neg) 07/28/21 07/28/21 07/28/21 Range/Units 13:14 13:14 13:14 WBC (4.8-10.8) K/uL RBC (4.7-6.1) M/uL Hgb (14.0-18.0) g/dL Hct (42-52) % MCV (80-100) fL MCH (25-34) pg MCHC (32-36) g/dL RDW Std Deviation (36.4-46.3) fL RDW Coeff of Francia (11.5-14.5) % Plt Count (130-400) K/uL MPV (7.4-10.4) fL Immature Gran % (Auto) % Neut % (Auto) % Lymph % (Auto) % [place] % (Auto) % Eos % (Auto) % Baso % (Auto) % Neut # (Auto) (1.4-6.5) K/uL Lymph # (Auto) (1.2-3.4) K/uL [place] # (Auto) (0.11-0.59) K/uL Eos # (Auto) (0-0.5) K/uL Baso # (Auto) (0-0.2) K/uL Immature Gran # (Auto) (0.00-0.02) K/uL ESR (0-20) mm/hr PT (9.0-12.0) Seconds INR (0.9-1.1) APTT (21.0-31.0) Seconds PTT Ratio VBG pH (7.36-7.41) VBG pCO2 (38-50) mmHg VBG pO2 mmHg VBG HCO3 mmol/L VBG O2 Saturation % VBG Base Excess mEq/L Barometric Pressure mm/Hg Sodium 127 L (136-145) mmol/L Potassium 3.2 L (3.5-5.1) mmol/L Chloride 91 L (98-107) mmol/L Carbon Dioxide 24 (21-32) mmol/L Anion Gap 12.0 H (3-11) BUN 18 (7-18) mg/dl Creatinine 1.00 (0.6-1.4) mg/dl Est Cr Clr Drug Dosing 67.2 ml/min Est GFR ( Amer) 91.8 ml/min Est GFR (Non-Af Amer) 79.2 ml/min BUN/Creatinine Ratio 18.2 (10-20) Glucose 107 H (70-99) mg/dl Lactate 1.6 (0.4-2.0) mmol/L Calcium 8.8 (8.5-10.1) mg/dl Magnesium 2.0 (1.8-2.4) mg/dl Total Bilirubin 0.5 (0.2-1) mg/dl AST 83 H (15-37) U/L ALT 75 (12-78) Alkaline Phosphatase 100 (45-117) U/L Troponin I < 0.015 (0-0.045) ng/ml Total Protein 8.3 H (6.4-8.2) gm/dl Albumin 3.2 L (3.4-5.0) gm/dl Globulin 5.1 H (2.5-4.0) gm/dl Albumin/Globulin Ratio 0.6 L (0.9-2) Procalcitonin 0.22 (0-0.5) ng/ml Urine Color Urine Appearance (Clear) Urine pH (4.5-7.5) Ur Specific Beyer (1.000-1.030) Urine Protein (Negative) Urine Glucose (UA) (Negative) Urine Ketones (Negative) Urine Blood (Negative) Urine Nitrite (Negative) Urine Bilirubin (Negative) Urine Urobilinogen (Negative) Ur Leukocyte Esterase (Negative) Urine WBC (Auto) (0-5) /hpf Urine RBC (Auto) (0-4) /hpf U Hyaline Cast (Auto) (0-5) /lpf U Epithel Cells (Auto) (0-5) /lpf Urine Bacteria (Auto) (Negative) SARS-CoV-2 (PCR) (Negative) Influenza Type A (PCR) (Neg) Influenza Type B (PCR) (Neg) RSV (RT-PCR) (Neg) 07/28/21 07/28/21 07/28/21 Range/Units 13:14 13:14 14:55 WBC (4.8-10.8) K/uL RBC (4.7-6.1) M/uL Hgb (14.0-18.0) g/dL Hct (42-52) % MCV (80-100) fL MCH (25-34) pg MCHC (32-36) g/dL RDW Std Deviation (36.4-46.3) fL RDW Coeff of Francia (11.5-14.5) % Plt Count (130-400) K/uL MPV (7.4-10.4) fL Immature Gran % (Auto) % Neut % (Auto) % Lymph % (Auto) % [place] % (Auto) % Eos % (Auto) % Baso % (Auto) % Neut # (Auto) (1.4-6.5) K/uL Lymph # (Auto) (1.2-3.4) K/uL [place] # (Auto) (0.11-0.59) K/uL Eos # (Auto) (0-0.5) K/uL Baso # (Auto) (0-0.2) K/uL Immature Gran # (Auto) (0.00-0.02) K/uL ESR 80 H (0-20) mm/hr PT (9.0-12.0) Seconds INR (0.9-1.1) APTT (21.0-31.0) Seconds PTT Ratio VBG pH 7.46 H (7.36-7.41) VBG pCO2 39 (38-50) mmHg VBG pO2 46 mmHg VBG HCO3 27 mmol/L VBG O2 Saturation 82.0 % VBG Base Excess 2.8 mEq/L Barometric Pressure 741.1 mm/Hg Sodium (136-145) mmol/L Potassium (3.5-5.1) mmol/L Chloride (98-107) mmol/L Carbon Dioxide (21-32) mmol/L Anion Gap (3-11) BUN (7-18) mg/dl Creatinine (0.6-1.4) mg/dl Est Cr Clr Drug Dosing ml/min Est GFR ( Amer) ml/min Est GFR (Non-Af Amer) ml/min BUN/Creatinine Ratio (10-20) Glucose (70-99) mg/dl Lactate (0.4-2.0) mmol/L Calcium (8.5-10.1) mg/dl Magnesium (1.8-2.4) mg/dl Total Bilirubin (0.2-1) mg/dl AST (15-37) U/L ALT (12-78) Alkaline Phosphatase (45-117) U/L Troponin I (0-0.045) ng/ml Total Protein (6.4-8.2) gm/dl Albumin (3.4-5.0) gm/dl Globulin (2.5-4.0) gm/dl Albumin/Globulin Ratio (0.9-2) Procalcitonin (0-0.5) ng/ml Urine Color Yellow Urine Appearance Clear (Clear) Urine pH 7.0 (4.5-7.5) Ur Specific Beyer 1.011 (1.000-1.030) Urine Protein 2+ H (Negative) Urine Glucose (UA) Negative (Negative) Urine Ketones Negative (Negative) Urine Blood Trace H (Negative) Urine Nitrite Negative (Negative) Urine Bilirubin Negative (Negative) Urine Urobilinogen Negative (Negative) Ur Leukocyte Esterase Negative (Negative) Urine WBC (Auto) 1-5 (0-5) /hpf Urine RBC (Auto) 0-4 (0-4) /hpf U Hyaline Cast (Auto) 1-5 (0-5) /lpf U Epithel Cells (Auto) 5-10 H (0-5) /lpf Urine Bacteria (Auto) Negative (Negative) SARS-CoV-2 (PCR) (Negative) Influenza Type A (PCR) (Neg) Influenza Type B (PCR) (Neg) RSV (RT-PCR) (Neg) Imaging Data Radiologist's Impression: Chest X-Ray 07/28/21 12:46 SINGLE VIEW CHEST CLINICAL HISTORY: Sepsis. FINDINGS: An AP, portable, upright chest radiograph is compared to study dated 03/17/2019. The heart is mildly enlarged noting atherosclerotic calcification of the thoracic aorta. There is multifocal airspace consolidation. No large pleural effusion or pneumothorax is seen. The bony thorax is grossly intact. IMPRESSION: Multifocal airspace consolidation is typical for pneumonia. Clinical correlation will be required and radiographic follow-up to resolution is recommended. ACT 112: Negative or not required by law. Electronically signed by: Nathan Lee M.D. 07/28/2021 2:02 PM Chest CTA 07/28/21 12:47 CT angio chest PE protocol CLINICAL HISTORY: Covid pneumonia TECHNIQUE: Multidetector row helical CT of the chest was performed. Coronal and sagittal reformations were obtained. Automated dose lowering techniques and/or adjustment according to patient size were utilized for this exam. Comparison: None available at the time of this dictation. FINDINGS: Lungs and pleura: Diffuse groundglass and reticular opacities are seen. Scattered emphysematous changes are seen. Bilateral pleural plaques are seen. Heart and pericardium: Cardiomegaly is seen with biatrial enlargement. Vessels: No evidence of pulmonary embolism. Mediastinum and sadi: Subcentimeter lymph nodes are seen. Chest wall and lower neck: There is a 14 mm lower cervical lymph node on the right. Abdomen: Unremarkable. Bones: Unremarkable. IMPRESSION: 1. No evidence of pulmonary embolism. 2. Groundglass and reticular opacities compatible with Covid pneumonia. 3. Lymphadenopathy in the mediastinum and lower cervical stations, likely reactive. ACT 112: Negative or not required by law. Electronically signed by: Usman Mc M.D. 07/28/2021 3:16 PM ECG Data Interpretation: Sinus rhythm with rate of 95. DE 168 QRS 146 QTC 505. Left bundle branch block present. ScarBosa negative. No significant change from the EKG in March 2019. [facility] Narrative 1246: The patient was evaluated in room A10. A complete history and physical exam was performed Cardiac monitoring: An order was placed for continuous cardiac monitoring. The monitor shows a rate of 100 with sinus rhythm Patient was found to be hypoxic on room air. Patient was placed on supplemental oxygen which improved his oxygen saturation. IV steroids ordered for the patien t given his hypoxia and recent COVID-19 diagnosis. 1524: Vital signs stable on supplemental oxygen. Labs within normal limits With the exception of sodium 127 potassium 3.2.. CTA negative for pulmonary embolus. Imaging does show bilateral groundglass opacities. Patient be admitted to the [facility] team. Impression & Plan Hypoxia, Pneumonia due to 2018-nCoV Critical Care Time Critical Care Time: Yes Total Critical Care Time: 46 I have personally spent greater than 46 minutes of critical care time in the direct management of this patient. This includes bedside care, interpretation of diagnostic studies, and testing, discussion with consultants, patient, and family members, and other required patient management activities. This 46 minutes is in excess of all separately billable procedures. Discharge Plan Visit Data Chief Complaint: Respiratory Problems Stated Complaint: SOB, CHEST PAIN, COUGH, FEVER, COVID + 07/26 ED Provider: Davide Oneal Discharge Problem: Hypoxia, Pneumonia due to nCo Patient Disposition: Admitted As Inpatient Forms Stand Alone Forms: [facility] Prescriptions Prescriptions: No Action montelukast 10 mg tablet 10 mg PO DAILY RF: 0 fluticasone propionate 50 mcg/actuation spray,suspension 2 spray INTRANASAL DAILY PRN (Reason: Nasal Congestion) RF: 0 Incruse Ellipta 62.5 mcg/actuation blister with device 1 inh INHALATION DAILY RF: 0 Lactinex 1 million cell tablet,chewable 1 tab PO BID Qty: 30 RF: 0 multivitamin Tablet 1 tab PO DAILY RF: 0 chlorthalidone 25 mg Tablet 25 mg PO DAILY RF: 0 omeprazole 20 mg Tablet,Delayed Release (Dr/Ec) 20 mg PO DAILY RF: 0 metoprolol succinate 50 mg Capsule,Sprinkle,Er 24hr 50 mg PO DAILY RF: 0 aspirin 81 mg Tablet,Delayed Release (Dr/Ec) 81 mg PO DAILY RF: 0 amoxicillin 875 mg tablet 875 mg PO BID RF: 0 Referrals Referrals: Yosef Rockwell DO [Primary Care Provider] -
[2021-07-28 13:33] LABS: Hematocrit (blood only) 41.4 % (42-52); Hemoglobin 14.8 g/dL (14.0-18.0); Lymphocytes # (auto) 0.35 K/uL (1.2-3.4); Lymphocytes % (auto) 7.7 %; Mean Corpuscular Hemoglobin 32.3 pg (25-34); Mean Corpuscular Hgb Conc 35.7 g/dL (32-36); Mean Corpuscular Volume 90.4 fL (80-100); Mean Platelet Volume 10.3 fL (7.4-10.4); Monocytes # (auto) 0.37 K/uL (0.11-0.59); Monocytes % (auto) 8.1 %; Neutrophils # (auto) 3.83 K/uL (1.4-6.5); Neutrophils % (auto) 84.2 %; Platelet Count 225 K/uL (130-400); RDW Coefficient of Variation 12.7 % (11.5-14.5); RDW Standard Deviation 42.4 fL (36.4-46.3); Red Blood Count 4.58 M/uL (4.7-6.1); White Blood Count 4.55 K/uL (4.8-10.8)
[2021-07-28 13:36] LABS: Base Excess VBG 2.8 mEq/L; pH VBG 7.46 (7.36-7.41)
[2021-07-28 13:44] LABS: Partial Thromboplastin Ratio 1.2; Partial Thromboplastin Time 31.6 Seconds (21.0-31.0); Prothrombin Time 10.3 Seconds (9.0-12.0)
[2021-07-28 13:50] LABS: Alanine Aminotransferase 75 (12-78); Albumin Level 3.2 gm/dl (3.4-5.0); Aspartate Aminotransferase 83 U/L (15-37); BUN Creatinine Ratio 18.2 (10-20); Blood Urea Nitrogen 18 mg/dl (7-18); Calcium 8.8 mg/dl (8.5-10.1); Carbon Dioxide 24 mmol/L (21-32); Chloride 91 mmol/L (98-107); Creatinine Clr Calc Pharmacy 67.2 ml/min; Est GFR (African American) 91.8 ml/min; Est GFR (Non-African American) 79.2 ml/min; Glucose 107 mg/dl (70-99); Potassium 3.2 mmol/L (3.5-5.1); Sodium 127 mmol/L (136-145)
[2021-07-28 13:55] LABS: Albumin Globulin Ratio 0.6 (0.9-2); Alkaline Phosphatase 100 U/L (45-117); Bilirubin,Total 0.5 mg/dl (0.2-1); Globulin 5.1 gm/dl (2.5-4.0); Total Protein 8.3 gm/dl (6.4-8.2); Troponin I < 0.015 ng/ml (0-0.045)
--- NOTE | 2021-07-28 14:03 | XRay Report ---
SINGLE VIEW CHEST CLINICAL HISTORY: Sepsis. FINDINGS: An AP, portable, upright chest radiograph is compared to study dated 03/17/2019. The heart is mildly enlarged noting atherosclerotic calcification of the thoracic aorta. There is multifocal airs pace consolidation. No large pleural effusion or pneumothorax is seen. The bony thorax is grossly int act. IMPRESSION: Multifocal airspace consolidation is typical for pneumonia. Clinical correlation will be required and radiographic follow-up to resolution is recommended. ACT 112: Negative or not required by law. Electronically signed by: Nathan Lee M.D. 07/28/2021 2:02 PM
[2021-07-28 14:21] LABS: Influenza A virus by PCR Negative (Neg); Influenza B virus by PCR Negative (Neg); RSV by PCR Negative (Neg)
[2021-07-28 14:52] LABS: SARS CoV2 RNA(COVID-19) InHosp POSITIVE (Negative)
[2021-07-28] MEDS ORDERED: OPTIRAY 320 125ml IV ONE (15:03)
[2021-07-28 15:14] LABS: Appearance Urine Clear (Clear); Bacteria Urine Automated Negative (Negative); Bilirubin Urine Negative (Negative); Blood Urine Trace (Negative); Color Urine Yellow; Glucose Urine UA Negative (Negative); Ketones Urine Negative (Negative); Leukocyte Esterase Urine Negative (Negative); Nitrite Urine Negative (Negative); Protein Urine 2+ (Negative); RBC Urine Automated 0-4 /hpf (0-4); Specific Gravity Urine 1.011 (1.000-1.030); Urobilinogen Urine Negative (Negative)
--- NOTE | 2021-07-28 15:17 | CT Scan Report ---
CT angio chest PE protocol CLINICAL HISTORY: Covid pneumonia TECHNIQUE: Multidetector row helical CT of the chest was performed. Coronal and sagittal reformations were obtained. Automated dose lowering techniques and/or adjustment according to patient size were u tilized for this exam. Comparison: None available at the time of this dictation. FINDINGS: Lungs and pleura: Diffuse groundglass and reticular opacities are seen. Scattered emphysematous wright es are seen. Bilateral pleural plaques are seen. Heart and pericardium: Cardiomegaly is seen with biatrial enlargement. Vessels: No evidence of pulmonary embolism. Mediastinum and sadi: Subcentimeter lymph nodes are seen. Chest wall and lower neck: There is a 14 mm lower cervical lymph node on the right. Abdomen: Unremarkable. Bones: Unremarkable. IMPRESSION: 1. No evidence of pulmonary embolism. 2. Groundglass and reticular opacities compatible with Covid pneumonia. 3. Lymphadenopathy in the mediastinum and lower cervical stations, likely reactive. ACT 112: Negative or not required by law. Electronically signed by: Usman Mc M.D. 07/28/2021 3:16 PM
--- NOTE | 2021-07-28 16:02 | History & Physical Report ---
Date of Service July 28, 2021 Assessment & Plan (1) Acute respiratory failure with hypoxia: (2) Pneumonia due to COVID-19 virus: Plan: This is a 66yo M with of PMH of COPD, LBBB, HTN, GERD and other medical problems listed below who presents with ongoing fever, cough and SOB. Symptoms x 7 days. Outpatient positive covid test in 07/25 Initially hypoxic at 79% on RA. Saturating at 93% on oxymask, feeling much better Chest CTA with no evidence of PE, groundglass and reticular opacities compatible with covid pneumonia Given solu-medrol in ED. Continue daily dexamethasone tomorrow Starting Remdesivir. Monitor daily labs Cough suppressant as needed. Isolation precautions Will discontinue Amoxicillin at this time as it is causing diarrhea, symptoms more consistent with post nasal drip (3) COPD (chronic obstructive pulmonary disease): Plan: Continue Incruse Ellipta, albuterol inh PRN (4) Hypokalemia: (5) Hyponatremia: Plan: In setting of diarrhia, poor intake Holding chlorthalidone Replacing, repeat BMP tomorrow (6) Hypertension: Plan: Normotensive. Continue Toprol. Holding chlorthalidone in setting of lyte abnormalities (7) GERD (gastroesophageal reflux disease): Plan: Continue PPI DVT Ppx: SQ Lovenox Code status: FULL PCP: [facility] Dispo: Admitted to PCU Patient seen in collaboration with Dr. Bowen. Please see addendum. History of Present Illness Chief Complaint: cough, SOB Primary Care Provider: Yosef Rockwell, DO This is a 66yo M with of PMH of COPD, LBBB, HTN, GERD and other medical problems listed below who presents with ongoing fever, cough and SOB. Outpatient positive covid test in 07/25. Symptoms started 7 days ago with body aches, lethargic, fever (tmax 103), chills, SOB, pleuritic chest pain, dysuria and decreased appetite. Couldn't use nebulizer due to coughing for the past few days. Was seen at [facility] urgent care on 07/25 and diagnosed with sinusitis. Has taken 4 doses of Amoxicillin so far but has developed diarrhea. Denies any lightheadedness, headache, hemoptysis, palpitations, nausea, vomiting, abdominal pain, dysuria, diarrhea or constipation. Quit smoking in 2006. Does not require oxygen at baseline. Was not vaccinated against covid [address]. [address] Spain for pulm. Allergies Allergy/AdvReac Type Severity Reaction Status Date / Time ABRAM Inhibitors Allergy Intermediate elevates k+ Verified 07/28/21 13:51 Home Medications Medication Instructions Recorded Confirmed Type chlorthalidone 25 mg tablet 25 mg PO DAILY 03/17/19 07/28/21 History metoprolol succinate 50 mg capsule 50 mg PO DAILY 03/17/19 07/28/21 History sprinkle, ext. release 24 hr multivitamin 1 tab PO DAILY 03/17/19 07/28/21 History omeprazole 20 mg tablet,delayed 20 mg PO DAILY 03/17/19 07/28/21 History release fluticasone propionate 50 2 spray INTRANASAL DAILY PRN 01/07/20 07/28/21 History mcg/actuation nasal spray,suspension montelukast 10 mg tablet 10 mg PO DAILY 01/07/20 07/28/21 History umeclidinium 62.5 mcg/actuation 1 inh INHALATION DAILY 01/07/20 07/28/21 History blister powder for inhalation (Incruse Ellipta) Lactobacillus acidoph-L.bulgaricus 1 tab PO BID #30 tab 01/10/20 07/28/21 Rx 1 million cell chewable tablet (Lactinex) amoxicillin 875 mg tablet 875 mg PO BID 07/28/21 07/28/21 History aspirin 81 mg tablet,delayed 81 mg PO DAILY 07/28/21 07/28/21 History release Past Med/Surg History Medical History (Updated 07/28/21 @ 16:35 by Davide Oneal) COPD (chronic obstructive pulmonary disease) GERD (gastroesophageal reflux disease) Hypertension LBBB (left bundle branch block) Prediabetes Surgical History (Updated 07/28/21 @ 15:58 by Abby Owen PA-C) Hx of colonoscopy No pertinent past surgical history Family History Other Cancer Diabetes Hypertension Social History (Updated 07/28/21 @ 16:50 by Abby Owen PA-C) Smoking Status: Former smoker Second Hand Exposure: Yes; Hx Alcohol Use: Yes Alcohol type: beer Alcohol type Comment: 2-3 beers daily but none for past week Hx Substance Use: No Preferred Language: Frisian Communication Ability: Effective Beliefs That Will Affect Care: None Current Living Situation: Spouse Feels Safe at Home: Yes Assistive Devices: Glasses Review of Systems Review of Systems: At least ten systems reviewed and negative except as noted in the HPI. Physical Exam Physical Exam: Please see Dr. Bowen's addendum for assessment and plan. Results & Data Results & Data ([facility]) Vital Signs (Past 12 Hours) Vital Signs Temp Pulse Pulse Resp BP BP Pulse Ox 07/28/21 15:32 93 07/28/21 15:29 96 H 24 127/80 86 L 07/28/21 14:50 94 H 18 91 07/28/21 13:21 28 H 95 07/28/21 13:20 93 H 28 H 121/68 95 07/28/21 13:19 92 H 28 H 95 07/28/21 13:17 92 H 28 H 121/68 95 07/28/21 12:40 36.8 C 22 104/64 79 L Laboratory Results Short CBC 07/28/21 Range/Units 13:14 WBC 4.55 L (4.8-10.8) K/uL Hgb 14.8 (14.0-18.0) g/dL Hct 41.4 L (42-52) % Plt Count 225 (130-400) K/uL BMP 07/28/21 13:14 Sodium 127 L Potassium 3.2 L Chloride 91 L Carbon Dioxide 24 BUN 18 Creatinine 1.00 Glucose 107 H Calcium 8.8 Cardiac Enzymes 07/28/21 Range/Units 13:14 Troponin I < 0.015 (0-0.045) ng/ml Liver Function 07/28/21 Range/Units 13:14 Total Bilirubin 0.5 (0.2-1) mg/dl AST 83 H (15-37) U/L ALT 75 (12-78) Alkaline Phosphatase 100 (45-117) U/L Albumin 3.2 L (3.4-5.0) gm/dl Urine 07/28/21 Range/Units 14:55 Urine Color Yellow Urine Appearance Clear (Clear) Urine pH 7.0 (4.5-7.5) Ur Specific Kelly 1.011 (1.000-1.030) Urine Protein 2+ H (Negative) Urine Glucose (UA) Negative (Negative) Diagnostic Findings Chest X-Ray 07/28/21 12:46 SINGLE VIEW CHEST CLINICAL HISTORY: Sepsis. FINDINGS: An AP, portable, upright chest radiograph is compared to study dated 03/17/2019. The heart is mildly enlarged noting atherosclerotic calcification of the thoracic aorta. There is multifocal airspace consolidation. No large pleural effusion or pneumothorax is seen. The bony thorax is grossly intact. IMPRESSION: Multifocal airspace consolidation is typical for pneumonia. Clinical correlation will be required and radiographic follow-up to resolution is recommended. ACT 112: Negative or not required by law. Electronically signed by: Nathan Lee M.D. 07/28/2021 2:02 PM Chest CTA 07/28/21 12:47 CT angio chest PE protocol CLINICAL HISTORY: Covid pneumonia TECHNIQUE: Multidetector row helical CT of the chest was performed. Coronal and sagittal reformations were obtained. Automated dose lowering techniques and/or adjustment according to patient size were utilized for this exam. Comparison: None available at the time of this dictation. FINDINGS: Lungs and pleura: Diffuse groundglass and reticular opacities are seen. Scattered emphysematous changes are seen. Bilateral pleural plaques are seen. Heart and pericardium: Cardiomegaly is seen with biatrial enlargement. Vessels: No evidence of pulmonary embolism. Mediastinum and sadi: Subcentimeter lymph nodes are seen. Chest wall and lower neck: There is a 14 mm lower cervical lymph node on the right. Abdomen: Unremarkable. Bones: Unremarkable. IMPRESSION: 1. No evidence of pulmonary embolism. 2. Groundglass and reticular opacities compatible with Covid pneumonia. 3. Lymphadenopathy in the mediastinum and lower cervical stations, likely reactive. ACT 112: Negative or not required by law. Electronically signed by: Usman Mc M.D. 07/28/2021 3:16 PM Supervising Physician Co-Signing Physician Notes Pt is a 66 y/o M with hx of COPD, LBBB, GERD, HTN, Prediabetes admitted for COVID pneumonia with hypoxia and hypoNa+ Exam: Mild respiratory distress, Oxymask in place Lungs: fair air entry b/l with b/l lower lobe rales Cardiac: normal S1/S2, no murmur Abd: soft, ND, NT MSk: No LE edema Psych: AAOx3 A/P: COVID Pneumonia with hypoxia: -Tested positive for COVID on: 07/25/21 - symptoms onset on: 1 week ago -CTA chest: no PE -Procal ordered: neg -Normal GFR but slight increase in AST -will start the pt on Remdesivir and Dexamethasone -continue on oxygen supplement right now -encourage frequent change of position (including proning) -daily CMP and CRP -DVT ppx ordered HypoNa+: -likely 2/2 hypovolemic hypoNa+ ---- has been having decreased appetite -pt is s/p NS bolus - will repeat BMP before putting pt on maintenance fluids Agree with A/P by Abby Owen PA-C
[2021-07-28] MEDS ORDERED: FLUTICASONE PROPIONATE NA SPR 16 GM BTL NAE PRN (16:03)
[2021-07-28] MEDS ORDERED: REMDESIVIR 200 MG in SODIUM CHLORIDE 0.9% 210 ML IV STA (16:12)
[2021-07-28] MEDS ORDERED: POTASSIUM CHLORIDE CRTAB 20 MEQ TABCR PO STA (16:19)
[2021-07-28 16:32] LABS: C Reactive Protein 4.36 mg/dl (0-0.29)
[2021-07-28] MEDS: POTASSIUM CHLORIDE 20 MEQ in SODIUM CHLORIDE 0.9% 250 ML IV SCH ×2 (17:41→20:52)
[2021-07-28] MEDS ORDERED: SODIUM CHLORIDE 0.9% 10ML FLUSH IV SCH (18:11)
[2021-07-28] MEDS ORDERED: AMOXICILLIN 875 MG PO SCH (21:00)
[2021-07-28] MEDS ORDERED: POLYETHYLENE (MIRALAX) 17 GM PACK PO PRN (22:31)
[2021-07-28] MEDS ORDERED: ACETAMINOPHEN 325 MG TAB PO PRN (22:31)
[2021-07-28 22:37] LABS: BUN Creatinine Ratio 15.9 (10-20); Calcium 8.4 mg/dl (8.5-10.1); Creatinine Clr Calc Pharmacy 78.2 ml/min; Est GFR (African American) 106.2 ml/min; Est GFR (Non-African American) 91.6 ml/min; Potassium 3.9 mmol/L (3.5-5.1)
[2021-07-28] MEDS: guaiFENesin/CODEINE 100MG/10MG 5ML UDC PO PRN (23:41)
[2021-07-28] MEDS: LACTOBACILLUS ACIDOPHILUS 1 GM PACK PO SCH (23:42)
[2021-07-29] MEDS: ENOXAPARIN INJ 40 MG/0.4 ML SYR SQ SCH ×2 (01:24→21:11)
[2021-07-29 05:22] LABS: Hemoglobin 14.4 g/dL (14.0-18.0); Mean Corpuscular Hemoglobin 32.2 pg (25-34); Mean Corpuscular Hgb Conc 35.1 g/dL (32-36); Mean Corpuscular Volume 91.7 fL (80-100); Mean Platelet Volume 10.5 fL (7.4-10.4); Platelet Count 206 K/uL (130-400); RDW Coefficient of Variation 12.7 % (11.5-14.5); RDW Standard Deviation 42.7 fL (36.4-46.3); Red Blood Count 4.47 M/uL (4.7-6.1); White Blood Count 2.59 K/uL (4.8-10.8)
[2021-07-29 05:55] LABS: Albumin Globulin Ratio 0.6 (0.9-2); Albumin Level 2.8 gm/dl (3.4-5.0); BUN Creatinine Ratio 23.7 (10-20); Bilirubin,Total 0.3 mg/dl (0.2-1); Calcium 8.9 mg/dl (8.5-10.1); Creatinine Clr Calc Pharmacy 106.9 ml/min; Est GFR (African American) 121.5 ml/min; Est GFR (Non-African American) 104.8 ml/min; Globulin 4.9 gm/dl (2.5-4.0); Potassium 3.9 mmol/L (3.5-5.1); Total Protein 7.7 gm/dl (6.4-8.2)
[2021-07-29] MEDS ORDERED: CHLORTHALIDONE 25 MG TAB PO SCH (09:00)
[2021-07-29] MEDS ORDERED: dexAMETHasone 6 MG in SYRINGE 0 ML IV SCH (09:00)
[2021-07-29] MEDS: ASPIRIN 81 MG ECTAB PO SCH (10:10)
[2021-07-29] MEDS: LACTOBACILLUS ACIDOPHILUS 1 GM PACK PO SCH ×2 (10:10→21:11)
[2021-07-29] MEDS: MONTELUKAST SODIUM 10 MG TABLET PO SCH (10:11)
[2021-07-29] MEDS: METOPROLOL SUCC 50MG EXT REL TAB PO SCH (10:11)
[2021-07-29] MEDS: MULTIVITAMIN TAB PO SCH (10:12)
[2021-07-29] MEDS: UMECLIDINIUM BROMIDE 62.5MCG/BLISTER 7 PUFFS/INHALER INH SCH (10:12)
[2021-07-29] MEDS: PANTOprazole 40 MG TAB PO SCH (10:12)
[2021-07-29] MEDS ORDERED: SODIUM CHLORIDE 0.9% 1000ML 1,000 ML IV ONE (10:53)
[2021-07-29] MEDS: REMDESIVIR 100 MG in SODIUM CHLORIDE 0.9% 230 ML IV SCH (13:14)
--- NOTE | 2021-07-29 16:39 | Electrocardiogram Report ---
Test Reason : Blood Pressure : / mmHG Vent. Rate : 095 BPM Atrial Rate : 095 BPM P-R Int : 168 ms QRS Dur : 146 ms QT Int : 402 ms P-R-T Axes : 069 -44 037 degrees QTc Int : 505 ms Normal sinus rhythm Left axis deviation Left bundle branch block Abnormal ECG When compared with ECG of 17-MAR-2019 19:14, No significant change was found Confirmed by Isaac Espinal ([id number]) on 07/29/2021 4:39:25 PM Referred By: REFERRED SELF Confirmed By:Isaac Espinal
--- NOTE | 2021-07-29 17:25 | Hospitalist Progress Note ---
Date of Service July 29, 2021 Assessment & Plan (1) Acute respiratory failure with hypoxia: (2) Pneumonia due to COVID-19 virus: Plan: Patient is a 66yr male with of PMH of COPD, LBBB, HTN, GERD and other medical problems listed below who presents with ongoing fever, cough and SOB. COVID-19 pneumonia Acute respiratory failure with hypoxia H/O COPD -CTA:No evidence of pulmonary embolism. Groundglass and reticular opacities compatible with Covid pneumonia. Lymphadenopathy in the mediastinum and lower cervical stations, likely reactive. -Outpatient positive covid test in 07/25 Normal Procalcitonin Continue Remdesivir Day#2 Continue dexamethasone Lasix as needed Encourage to prone Continue supplemental oxygen as needed (3) COPD (chronic obstructive pulmonary disease): Plan: Continue Incruse Ellipta, albuterol inh PRN (4) Hypokalemia: Plan: Replace electrolytes as needed (5) Hyponatremia: Plan: In setting of diarrhea, poor intake Holding chlorthalidone for now Continue IV fluids Monitor electrolytes (6) Hypertension: Plan: Continue Toprol. (7) GERD (gastroesophageal reflux disease): Plan: Continue PPI DVT Px: SQ Lovenox Code status: FULL CODE Admission and Anticipated Discharge Date Admission Date: July 28, 2021 Subjective Patient is seen and examined at bedside States feeling better today Less cough, dyspnea today Denies any nausea, vomiting, abdominal pain, dizziness Offers no other complaints Currently on 2 L supplemental oxygen Review of Systems Review of Systems: All systems reviewed & are unremarkable except as noted in Subjective Physical Exam Physical Exam: Physical Exam: Vitals signs as noted above General Appearance:Thin, frail, no apparent distress Head: normocephalic, Atraumatic Eyes: normal inspection, EOMI Neck: supple, Trachea midline Respiratory/Chest: Decreased breath sounds, Basal Crackles Cardiovascular: S1, S2, No murmur Abdomen/GI:Soft, Non tender, Bowel sounds present Extremities/Musculoskelatal:normal inspection, no edema Neurologic/Psych:AAOX3, grossly no focal neurological deficits Skin: normal color, warm Results & Data Results & Data ([facility]) Vital Signs (Past 12 Hours) Vital Signs Temp Pulse Resp BP Pulse Ox 07/29/21 11:31 36.8 C 83 20 122/66 95 07/29/21 08:00 36.8 C 84 20 129/64 87 L Laboratory Results Short CBC 07/29/21 Range/Units 05:12 WBC 2.59 L (4.8-10.8) K/uL Hgb 14.4 (14.0-18.0) g/dL Hct 41.0 L (42-52) % Plt Count 206 (130-400) K/uL BMP 07/28/21 07/29/21 21:49 05:12 Sodium 132 L 129 L Potassium 3.9 D 3.9 Chloride 97 L 96 L Carbon Dioxide 27 27 BUN 14 15 Creatinine 0.86 0.62 Glucose 169 H 136 H Calcium 8.4 L 8.9 Liver Function 07/29/21 Range/Units 05:12 Total Bilirubin 0.3 (0.2-1) mg/dl AST 63 H (15-37) U/L ALT 63 (12-78) Alkaline Phosphatase 90 (45-117) U/L Albumin 2.8 L (3.4-5.0) gm/dl
[2021-07-30] MEDS: guaiFENesin/CODEINE 100MG/10MG 5ML UDC PO PRN (02:02)
[2021-07-30] MEDS ORDERED: ALBUT/IPRATROP 3MG/0.5MG NEB 3 ML VIAL NEB STA (04:51)
[2021-07-30] MEDS ORDERED: dexAMETHasone 6 MG in SYRINGE 0 ML IV ONE (05:00)
[2021-07-30] MEDS ORDERED: FUROSEMIDE INJ 20 MG/2 ML VIAL IV ONE (05:19)
[2021-07-30 07:43] LABS: Hematocrit (blood only) 43.5 % (42-52); Hemoglobin 15.4 g/dL (14.0-18.0); Mean Corpuscular Hemoglobin 32.4 pg (25-34); Mean Corpuscular Hgb Conc 35.4 g/dL (32-36); Mean Corpuscular Volume 91.4 fL (80-100); Platelet Count 245 K/uL (130-400); RDW Coefficient of Variation 12.6 % (11.5-14.5); RDW Standard Deviation 42.3 fL (36.4-46.3); Red Blood Count 4.76 M/uL (4.7-6.1); White Blood Count 5.86 K/uL (4.8-10.8)
[2021-07-30 07:44] LABS: Base Excess ABG 1.5 mEq/L (-9-1.8); HCO3 ABG 24 mmol/L (19-24); Oxygen Saturation ABG 94.5 % (90-95); PCO2 ABG 33 mmHg (35-46); PO2 ABG 66 mmHg (80-95); pH ABG 7.48 (7.35-7.45)
[2021-07-30 07:49] LABS: Allen Test Pos (Pos)
[2021-07-30 07:52] LABS: Partial Thromboplastin Ratio 1.1; Partial Thromboplastin Time 28.4 Seconds (21.0-31.0)
--- NOTE | 2021-07-30 07:53 | XRay Report ---
SINGLE VIEW CHEST CLINICAL HISTORY: Hypoxia FINDINGS: An AP, portable, upright chest radiograph is compared to chest x-ray and chest CT dated . The cardiomediastinal silhouette is unremarkable. Multifocal airspace consolidation is again seen throughout both lungs. This is not appreciably changed as compared to 07/28/2021. Suspect trace pleural effusions. No pneumothorax is seen. The bony thorax is grossly intact. IMPRESSION: Multifocal airspace consolidation is typical for pneumonia. This has not appreciably arguello ged from 07/28/2021. Radiographic follow-up to resolution is recommended. ACT 112: Negative or not required by law. Electronically signed by: Nathan Lee M.D. 07/30/2021 7:51 AM
[2021-07-30 08:13] LABS: Albumin Level 2.9 gm/dl (3.4-5.0); BUN Creatinine Ratio 28.4 (10-20); C Reactive Protein 2.13 mg/dl (0-0.29); Calcium 8.6 mg/dl (8.5-10.1); Creatinine Clr Calc Pharmacy 110.5 ml/min; Est GFR (African American) 123.2 ml/min; Est GFR (Non-African American) 106.3 ml/min; Potassium 3.5 mmol/L (3.5-5.1)
[2021-07-30 08:16] LABS: Albumin Globulin Ratio 0.6 (0.9-2); Bilirubin,Total 0.4 mg/dl (0.2-1); Total Protein 7.9 gm/dl (6.4-8.2)
[2021-07-30] MEDS: LACTOBACILLUS ACIDOPHILUS 1 GM PACK PO SCH ×2 (08:44→20:47)
[2021-07-30] MEDS ORDERED: dexAMETHasone 10 MG in SYRINGE 0 ML IV SCH (09:00)
[2021-07-30] MEDS ORDERED: POTASSIUM CHLORIDE CRTAB 20 MEQ TABCR PO ONE (09:27)
[2021-07-30] MEDS: MULTIVITAMIN TAB PO SCH (09:48)
[2021-07-30] MEDS: METOPROLOL SUCC 50MG EXT REL TAB PO SCH (09:49)
[2021-07-30] MEDS: UMECLIDINIUM BROMIDE 62.5MCG/BLISTER 7 PUFFS/INHALER INH SCH (09:49)
[2021-07-30] MEDS: PANTOprazole 40 MG TAB PO SCH (09:49)
[2021-07-30] MEDS: ASPIRIN 81 MG ECTAB PO SCH (09:49)
[2021-07-30] MEDS: MONTELUKAST SODIUM 10 MG TABLET PO SCH (09:49)
[2021-07-30] MEDS: REMDESIVIR 100 MG in SODIUM CHLORIDE 0.9% 230 ML IV SCH (13:02)
[2021-07-30] MEDS: SODIUM CHLORIDE 0.9% 10ML FLUSH IV SCH (14:17)
--- NOTE | 2021-07-30 19:03 | Hospitalist Progress Note ---
Date of Service July 30, 2021 Assessment & Plan (1) Acute respiratory failure with hypoxia: (2) Pneumonia due to COVID-19 virus: Plan: Patient is a 66yr male with of PMH of COPD, LBBB, HTN, GERD and other medical problems listed below who presents with ongoing fever, cough and SOB. COVID-19 pneumonia Acute respiratory failure with hypoxia H/O COPD -CTA:No evidence of pulmonary embolism. Groundglass and reticular opacities compatible with Covid pneumonia. Lymphadenopathy in the mediastinum and lower cervical stations, likely reactive. -Outpatient positive covid test in 07/25 Normal Procalcitonin Continue Remdesivir Day#3 Continue dexamethasone Lasix as needed Encourage to prone Continue supplemental oxygen as needed Currently on High flow oxygen CXR today remains unchanged from yesterday CRP down to 2.13 Normal Procalcitonin (3) COPD (chronic obstructive pulmonary disease): Plan: Continue Incruse Ellipta, albuterol inh PRN (4) Hypokalemia: Plan: Replace electrolytes as needed (5) Hyponatremia: Plan: In setting of diarrhea, poor intake Holding chlorthalidone for now Received gentle IV fluids Monitor electrolytes Sodium 130 today (6) Hypertension: Plan: Continue Toprol. (7) GERD (gastroesophageal reflux disease): Plan: Continue PPI DVT Px: SQ Lovenox Code status: FULL CODE Admission and Anticipated Discharge Date Admission Date: July 28, 2021 Subjective Patient is seen and examined at bedside Patient states having worsening cough and dyspnea Currently on High Flow Oxygen Encouraged to Prone CRP trended down Denies any chest pain, nausea, vomiting, abdominal pain, dizziness Review of Systems Review of Systems: All systems reviewed & are unremarkable except as noted in Subjective Physical Exam Physical Exam: Physical Exam: Vitals signs as noted above General Appearance:Thin, frail, no apparent distress Head: normocephalic, Atraumatic Eyes: normal inspection, EOMI Neck: supple, Trachea midline Respiratory/Chest: Decreased breath sounds, Basal Crackles Cardiovascular: S1, S2, No murmur Abdomen/GI:Soft, Non tender, Bowel sounds present Extremities/Musculoskelatal:normal inspection, no edema Neurologic/Psych:AAOX3, grossly no focal neurological deficits Skin: normal color, warm Results & Data Results & Data ([facility]) Vital Signs (Past 12 Hours) Vital Signs Temp Pulse Pulse Resp BP BP Pulse Ox 07/30/21 15:23 36.7 C 73 16 111/67 90 07/30/21 15:00 73 07/30/21 13:14 07/30/21 11:26 36.6 C 78 20 124/76 92 07/30/21 11:08 83 18 95 07/30/21 09:03 20 97 07/30/21 08:00 75 07/30/21 07:50 36.4 C L 86 20 124/78 87 L 07/30/21 07:20 77 18 94 Pulse Ox 07/30/21 15:23 07/30/21 15:00 07/30/21 13:14 91 07/30/21 11:26 07/30/21 11:08 07/30/21 09:03 07/30/21 08:00 07/30/21 07:50 07/30/21 07:20 Laboratory Results Short CBC 07/30/21 Range/Units 07:22 WBC 5.86 (4.8-10.8) K/uL Hgb 15.4 (14.0-18.0) g/dL Hct 43.5 (42-52) % Plt Count 245 (130-400) K/uL BMP 07/30/21 07:22 Sodium 130 L Potassium 3.5 Chloride 96 L Carbon Dioxide 25 BUN 17 Creatinine 0.60 Glucose 108 H Calcium 8.6 Liver Function 07/30/21 Range/Units 07:22 Total Bilirubin 0.4 (0.2-1) mg/dl AST 54 H (15-37) U/L ALT 58 (12-78) Alkaline Phosphatase 84 (45-117) U/L Albumin 2.9 L (3.4-5.0) gm/dl
[2021-07-30] MEDS: ENOXAPARIN INJ 40 MG/0.4 ML SYR SQ SCH (20:47)
[2021-07-31 07:42] LABS: Albumin Level 2.8 gm/dl (3.4-5.0); BUN Creatinine Ratio 34.6 (10-20); Creatinine Clr Calc Pharmacy 106.4 ml/min; Est GFR (African American) 122.3 ml/min; Est GFR (Non-African American) 105.5 ml/min; Potassium 3.6 mmol/L (3.5-5.1)
[2021-07-31 07:45] LABS: Albumin Globulin Ratio 0.6 (0.9-2); Bilirubin,Total 0.5 mg/dl (0.2-1); Globulin 4.7 gm/dl (2.5-4.0); Total Protein 7.5 gm/dl (6.4-8.2)
[2021-07-31] MEDS ORDERED: dexAMETHasone 6 MG in SYRINGE 0 ML IV SCH (09:00)
[2021-07-31] MEDS: METOPROLOL SUCC 50MG EXT REL TAB PO SCH (09:02)
[2021-07-31] MEDS: ASPIRIN 81 MG ECTAB PO SCH (09:02)
[2021-07-31] MEDS: MULTIVITAMIN TAB PO SCH (09:03)
[2021-07-31] MEDS: UMECLIDINIUM BROMIDE 62.5MCG/BLISTER 7 PUFFS/INHALER INH SCH (09:03)
[2021-07-31] MEDS: MONTELUKAST SODIUM 10 MG TABLET PO SCH (09:03)
[2021-07-31] MEDS: LACTOBACILLUS ACIDOPHILUS 1 GM PACK PO SCH ×2 (09:03→20:27)
[2021-07-31] MEDS: PANTOprazole 40 MG TAB PO SCH (09:03)
[2021-07-31] MEDS ORDERED: FUROSEMIDE INJ 20 MG/2 ML VIAL IV ONE (10:05)
[2021-07-31] MEDS: REMDESIVIR 100 MG in SODIUM CHLORIDE 0.9% 230 ML IV SCH (11:16)
[2021-07-31] MEDS: SODIUM CHLORIDE 0.9% 10ML FLUSH IV SCH (12:36)
--- NOTE | 2021-07-31 16:52 | Hospitalist Progress Note ---
Date of Service July 31, 2021 Assessment & Plan (1) Acute respiratory failure with hypoxia: (2) Pneumonia due to COVID-19 virus: Plan: Patient is a 66yr male with of PMH of COPD, LBBB, HTN, GERD and other medical problems listed below who presents with ongoing fever, cough and SOB. COVID-19 pneumonia Acute respiratory failure with hypoxia H/O COPD -CTA:No evidence of pulmonary embolism. Groundglass and reticular opacities compatible with Covid pneumonia. Lymphadenopathy in the mediastinum and lower cervical stations, likely reactive. -Outpatient positive covid test in 07/25 Normal Procalcitonin Continue Remdesivir Day#4 Continue dexamethasone Lasix as needed Encourage to prone Continue supplemental oxygen as needed CRP down to 2.13 Normal Procalcitonin Given 20 mg of Lasix today We will repeat chest x-ray tomorrow Continue current management Remains on high flow oxygen (3) COPD (chronic obstructive pulmonary disease): Plan: Continue Incruse Ellipta, albuterol inh PRN (4) Hypokalemia: Plan: Replace electrolytes as needed (5) Hyponatremia: Plan: In setting of diarrhea, poor intake Holding chlorthalidone for now Monitor electrolytes Sodium 130 today (6) Hypertension: Plan: Continue Toprol. (7) GERD (gastroesophageal reflux disease): Plan: Continue PPI DVT Px: SQ Lovenox Code status: FULL CODE Admission and Anticipated Discharge Date Admission Date: July 28, 2021 Subjective Patient is seen and examined at bedside Subjectively feels dyspnea is slightly better Remains on high flow oxygen Continues to have significant cough Updated patient's over the phone Denies any chest pain, nausea, vomiting, abdominal pain, dizziness Review of Systems Review of Systems: All systems reviewed & are unremarkable except as noted in Subjective Physical Exam Physical Exam: Physical Exam: Vitals signs as noted above General Appearance:Thin, frail, no apparent distress Head: normocephalic, Atraumatic Eyes: normal inspection, EOMI Neck: supple, Trachea midline Respiratory/Chest: Decreased breath sounds, B/l scattered Crackles Cardiovascular: S1, S2, No murmur Abdomen/GI:Soft, Non tender, Bowel sounds present Extremities/Musculoskeletal:normal inspection, no edema Neurologic/Psych:AAOX3, grossly no focal neurological deficits Skin: normal color, warm Results & Data Results & Data ([facility]) Vital Signs (Past 12 Hours) Vital Signs Temp Pulse Pulse Resp BP Pulse Ox 07/31/21 15:24 37.2 C 82 20 109/71 94 07/31/21 11:15 36.6 C 85 22 123/73 91 07/31/21 07:41 37.2 C 88 22 125/71 92 07/31/21 07:20 80 24 97 Laboratory Results [facility] 07/31/21 06:53 Sodium 130 L Potassium 3.6 Chloride 97 L Carbon Dioxide 25 BUN 21 H Creatinine 0.61 Glucose 82 Calcium 9.0 Liver Function 07/31/21 Range/Units 06:53 Total Bilirubin 0.5 (0.2-1) mg/dl AST 49 H (15-37) U/L ALT 53 (12-78) Alkaline Phosphatase 83 (45-117) U/L Albumin 2.8 L (3.4-5.0) gm/dl
[2021-07-31] MEDS: ENOXAPARIN INJ 40 MG/0.4 ML SYR SQ SCH (20:25)
[2021-07-31] MEDS: BENZONATATE 100 MG CAPSULE PO SCH (20:26)
[2021-08-01] MEDS ORDERED: XOPENEX/ATROVENT 1.25mg/0.5MG NEB COMBO NEB STA ×2 (02:37→21:46)
[2021-08-01] MEDS ORDERED: LEVALBUTEROL 1.25MG/0.5ML NEB INH STA ×2 (02:41→21:49)
[2021-08-01] MEDS ORDERED: IPRATROPIUM BROMIDE NEB SOLN 0.02% 2.5 ML VIAL INH STA ×2 (02:41→21:49)
[2021-08-01] MEDS ORDERED: dexAMETHasone 6 MG in SYRINGE 0 ML IV ONE (02:45)
[2021-08-01 04:12] LABS: Hematocrit (blood only) 41.9 % (42-52); Hemoglobin 15.1 g/dL (14.0-18.0); Mean Corpuscular Hemoglobin 32.2 pg (25-34); Mean Corpuscular Volume 89.3 fL (80-100); Mean Platelet Volume 10.5 fL (7.4-10.4); Platelet Count 242 K/uL (130-400); RDW Coefficient of Variation 12.4 % (11.5-14.5); RDW Standard Deviation 39.9 fL (36.4-46.3); Red Blood Count 4.69 M/uL (4.7-6.1); White Blood Count 5.83 K/uL (4.8-10.8)
[2021-08-01 04:20] LABS: Partial Thromboplastin Ratio 1.2
[2021-08-01 04:21] LABS: Base Excess ABG 0.9 mEq/L (-9-1.8); HCO3 ABG 24 mmol/L (19-24); Oxygen Saturation ABG 94.8 % (90-95); PCO2 ABG 33 mmHg (35-46); PO2 ABG 68 mmHg (80-95); pH ABG 7.48 (7.35-7.45)
[2021-08-01 04:22] LABS: Allen Test Pos (Pos)
[2021-08-01 04:29] LABS: Albumin Level 2.9 gm/dl (3.4-5.0); BUN Creatinine Ratio 39.4 (10-20); Calcium 9.2 mg/dl (8.5-10.1); Creatinine Clr Calc Pharmacy 117.9 ml/min; Est GFR (African American) 128.6 ml/min; Potassium 3.6 mmol/L (3.5-5.1)
[2021-08-01 04:31] LABS: Albumin Globulin Ratio 0.6 (0.9-2); Bilirubin,Total 0.8 mg/dl (0.2-1); C Reactive Protein 7.42 mg/dl (0-0.29); Total Protein 7.9 gm/dl (6.4-8.2)
[2021-08-01] MEDS ORDERED: FUROSEMIDE INJ 20 MG/2 ML VIAL IV ONE (04:46)
[2021-08-01] MEDS ORDERED: POTASSIUM CHLORIDE / WTR 10 MEQ/100 ML PLCT IV SCH (05:00)
[2021-08-01] MEDS ORDERED: POTASSIUM CHLORIDE PWD 20 MEQ PACK PO STA (05:15)
[2021-08-01 06:02] LABS: Basophils # (auto) 0.01 K/uL (0-0.2); Basophils % (auto) 0.2 %; Immature Granulocytes # (auto) 0.04 K/uL (0.00-0.02); Immature Granulocytes % (auto) 0.7 %; Lymphocytes % (auto) 6.9 %; Monocytes # (auto) 0.31 K/uL (0.11-0.59); Monocytes % (auto) 5.3 %; Neutrophils # (auto) 5.07 K/uL (1.4-6.5); Neutrophils % (auto) 86.9 %
--- NOTE | 2021-08-01 07:00 | XRay Report ---
SINGLE VIEW CHEST CLINICAL HISTORY: Hypoxia. FINDINGS: A PA, portable, prone chest radiograph is compared to study dated 07/30/2021 and correlated with chest CT dated 07/28/2021. The cardiomediastinal silhouette is unremarkable. 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 Multifocal airspace consolidation is unchanged to modestly improved as compared to 07/30/2021 No large pleural effusion or pneumothorax is seen. The s keletal structures are osteopenic. The bony thorax is grossly intact. IMPRESSION: Multifocal airspace consolidation is unchanged to modestly improved as compared to 2020. Continued follow-up to resolution is recommended. ACT 112: Negative or not required by law. Electronically signed by: Nathan Lee M.D. 08/01/2021 6:59 AM
[2021-08-01] MEDS: BENZONATATE 100 MG CAPSULE PO SCH ×3 (08:42→20:22)
[2021-08-01] MEDS: PANTOprazole 40 MG TAB PO SCH (08:42)
[2021-08-01] MEDS: UMECLIDINIUM BROMIDE 62.5MCG/BLISTER 7 PUFFS/INHALER INH SCH (08:42)
[2021-08-01] MEDS: MULTIVITAMIN TAB PO SCH (08:42)
[2021-08-01] MEDS: MONTELUKAST SODIUM 10 MG TABLET PO SCH (08:42)
[2021-08-01] MEDS: METOPROLOL SUCC 50MG EXT REL TAB PO SCH (08:42)
[2021-08-01] MEDS: ASPIRIN 81 MG ECTAB PO SCH (08:42)
[2021-08-01] MEDS: LACTOBACILLUS ACIDOPHILUS 1 GM PACK PO SCH ×2 (08:42→20:23)
[2021-08-01] MEDS: REMDESIVIR 100 MG in SODIUM CHLORIDE 0.9% 230 ML IV SCH (11:47)
[2021-08-01] MEDS: SODIUM CHLORIDE 0.9% 10ML FLUSH IV SCH (12:47)
--- NOTE | 2021-08-01 17:13 | Hospitalist Progress Note ---
Date of Service August 01, 2021 Assessment & Plan (1) Acute respiratory failure with hypoxia: (2) Pneumonia due to COVID-19 virus: Plan: Patient is a 66yr male with of PMH of COPD, LBBB, HTN, GERD and other medical problems listed below who presents with ongoing fever, cough and SOB. COVID-19 pneumonia Acute respiratory failure with hypoxia H/O COPD -CTA:No evidence of pulmonary embolism. Groundglass and reticular opacities compatible with Covid pneumonia. Lymphadenopathy in the mediastinum and lower cervical stations, likely reactive. -Outpatient positive covid test in 07/25 Normal Procalcitonin Completed Remdesivir course Continue dexamethasone Lasix as needed Continue supplemental oxygen as needed CRP down to 2.13 Normal Procalcitonin Currently on 60 L, 90% FiO2 on high flow oxygen Consider CTA if needed Encourage to prone (3) COPD (chronic obstructive pulmonary disease): Plan: Continue Incruse Ellipta, albuterol inh PRN (4) Hypokalemia: Plan: Replace electrolytes as needed (5) Hyponatremia: Plan: In setting of diarrhea, poor intake Holding chlorthalidone for now Monitor electrolytes Sodium 129 today Fluid restriction (6) Hypertension: Plan: Continue Toprol. (7) GERD (gastroesophageal reflux disease): Plan: Continue PPI DVT Px: SQ Lovenox Code status: FULL CODE Admission and Anticipated Discharge Date Admission Date: July 28, 2021 Subjective Patient is seen and examined at bedside Feels less dyspneic today Still has cough Poor appetite Denies chest pain, dizziness, nausea, abdominal pain Currently on 60 L, 90% FiO2 Review of Systems Review of Systems: All systems reviewed & are unremarkable except as noted in Subjective Physical Exam Physical Exam: Physical Exam: Vitals signs as noted above General Appearance:Thin, frail, no apparent distress Head: normocephalic, Atraumatic Eyes: normal inspection, EOMI Neck: supple, Trachea midline Respiratory/Chest: Decreased breath sounds, B/l basal crackles Cardiovascular: S1, S2, No murmur Abdomen/GI:Soft, Non tender, Bowel sounds present Extremities/Musculoskeletal:normal inspection, no edema Neurologic/Psych:AAOX3, grossly no focal neurological deficits Skin: normal color, warm Results & Data Results & Data ([facility]) Vital Signs (Past 12 Hours) Vital Signs Temp Pulse Resp BP Pulse Ox 08/01/21 16:02 36.8 C 86 20 129/76 90 08/01/21 14:45 88 20 96 08/01/21 11:52 37 C 83 20 109/69 90 08/01/21 10:45 91 H 20 89 L 08/01/21 08:28 36.7 C 93 H 20 118/75 90 08/01/21 07:38 97 H 22 91 Laboratory Results Short CBC 08/01/21 Range/Units 03:55 WBC 5.83 (4.8-10.8) K/uL Hgb 15.1 (14.0-18.0) g/dL Hct 41.9 L (42-52) % Plt Count 242 (130-400) K/uL BMP 08/01/21 03:55 Sodium 129 L Potassium 3.6 Chloride 96 L Carbon Dioxide 26 BUN 21 H Creatinine 0.54 L Glucose 104 H Calcium 9.2 Liver Function 08/01/21 Range/Units 03:55 Total Bilirubin 0.8 (0.2-1) mg/dl AST 47 H (15-37) U/L ALT 63 (12-78) Alkaline Phosphatase 91 (45-117) U/L Albumin 2.9 L (3.4-5.0) gm/dl
[2021-08-01] MEDS: ENOXAPARIN INJ 40 MG/0.4 ML SYR SQ SCH (20:22)
[2021-08-01] MEDS ORDERED: methylPREDNISolone 40 MG in SYRINGE 0 ML IV ONE (21:50)
[2021-08-02 08:04] LABS: BUN Creatinine Ratio 31.7 (10-20); Calcium 9.4 mg/dl (8.5-10.1); Creatinine Clr Calc Pharmacy 90.9 ml/min; Est GFR (African American) 115.6 ml/min; Est GFR (Non-African American) 99.7 ml/min; Potassium 4.3 mmol/L (3.5-5.1)
[2021-08-02] MEDS ORDERED: OPTIRAY 320 125ml IV ONE (10:10)
[2021-08-02] MEDS: dexAMETHasone 6 MG in SYRINGE 0 ML IV SCH (10:14)
[2021-08-02] MEDS: METOPROLOL SUCC 50MG EXT REL TAB PO SCH (10:15)
[2021-08-02] MEDS: MONTELUKAST SODIUM 10 MG TABLET PO SCH (10:15)
[2021-08-02] MEDS: ASPIRIN 81 MG ECTAB PO SCH (10:15)
[2021-08-02] MEDS: PANTOprazole 40 MG TAB PO SCH (10:15)
[2021-08-02] MEDS: BENZONATATE 100 MG CAPSULE PO SCH ×3 (10:15→20:03)
[2021-08-02] MEDS: UMECLIDINIUM BROMIDE 62.5MCG/BLISTER 7 PUFFS/INHALER INH SCH (10:16)
[2021-08-02] MEDS: LACTOBACILLUS ACIDOPHILUS 1 GM PACK PO SCH ×2 (10:16→20:04)
[2021-08-02] MEDS: MULTIVITAMIN TAB PO SCH (10:16)
[2021-08-02] MEDS ORDERED: COUGH DROP (SUGAR FREE) LOZ 24 LOZ/1 BOX BUCCAL ONE (10:36)
--- NOTE | 2021-08-02 10:59 | CT Scan Report ---
CT angio chest PE protocol CT DOSE: 417.87 mGycm HISTORY: 66 years-old Male with PE. Acute hypoxia. COVID Positive. TECHNIQUE: Multiple CTA images of the chest were obtained after the intravenous administration of 120 ml Optiray. Coronal and sagittal MIPS were obtained from the axial data set and were submitted for review. All measurements were obtained according to NASCET criteria. A dose lowering technique was u tilized adhering to the principles of ALARA. COMPARISON: Chest radiograph 08/01/2021, CTA chest 07/28/2021 FINDINGS: CTA: Mild cardiomegaly. No pericardial effusion. Atherosclerosis of the thoracic aorta without aneurysm or dissection. Patency of the imaged great vessels. Suboptimal evaluation of the pulmonary arterial gael e secondary to contrast bolus timing and respiratory motion artifact. No central pulmonary emboli billy ntified. CT CHEST: Unremarkable thyroid. Mild mediastinal and hilar adenopathy redemonstrated measuring up to 10 mm. Chr onic pleural thickening with pleural calcifications redemonstrated bilaterally. Emphysema with chroni c fibrotic changes and bronchial wall thickening suggestive of bronchitis. Bibasilar linear consolida tion with multifocal multilobar subpleural predominant groundglass and consolidative opacities, gener ally unchanged from comparison. The bibasilar consolidation has progressed from prior. There are no s uspicious pulmonary nodules or masses identified. The central airways appear patent. No acute process of the imaged upper abdomen. Unremarkable soft tissues. No acute fracture. IMPRESSION: 1. Limited study as above. No pulmonary emboli identified. 2. Extensive bilateral opacities suggestive of viral pneumonia redemonstrated with progressively wors ened bibasilar predominant consolidation. 3. 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 4. Emphysema with chronic fibrotic changes. 5. Unchanged likely reactive mediastinal and hilar adenopathy. ACT 112: Negative or not required by law. The above report was generated using voice recognition software. It may contain grammatical, syntax o r spelling errors. Electronically signed by: Daren Marlow M.D. 08/02/2021 10:58 AM
[2021-08-02] MEDS: SODIUM CHLORIDE 0.9% 10ML FLUSH IV SCH (13:17)
[2021-08-02] MEDS ORDERED: POLYETHYLENE (MIRALAX) 17 GM PACK PO ONE (15:35)
--- NOTE | 2021-08-02 17:31 | Hospitalist Progress Note ---
Date of Service August 02, 2021 Assessment & Plan (1) Acute respiratory failure with hypoxia: (2) Pneumonia due to COVID-19 virus: Plan: Patient is a 66yr male with of PMH of COPD, LBBB, HTN, GERD and other medical problems listed below who presents with ongoing fever, cough and SOB. COVID-19 pneumonia Acute respiratory failure with hypoxia H/O COPD -CTA:No evidence of pulmonary embolism. Groundglass and reticular opacities compatible with Covid pneumonia. Lymphadenopathy in the mediastinum and lower cervical stations, likely reactive. 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 (7) GERD (gastroesophageal reflux disease): Plan: Continue PPI DVT Px: SQ Lovenox Code status: FULL CODE Admission and Anticipated Discharge Date Admission Date: July 28, 2021 Subjective Patient is seen and examined at bedside Reports constipation Discussed with patient's family Subjectively feels less dyspneic Cough worse with exertion Denies chest pain, dizziness, nausea, abdominal pain Currently on High Flow Oxygen Review of Systems Review of Systems: All systems reviewed & are unremarkable except as noted in Subjective Physical Exam Physical Exam: Physical Exam: Vitals signs as noted above General Appearance:Thin, frail, no apparent distress Head: normocephalic, Atraumatic Eyes: normal inspection, EOMI Neck: supple, Trachea midline Respiratory/Chest: Decreased breath sounds, B/l basal crackles Cardiovascular: S1, S2, No murmur Abdomen/GI:Soft, Non tender, Bowel sounds present Extremities/Musculoskeletal:normal inspection, no edema Neurologic/Psych:AAOX3, grossly no focal neurological deficits Skin: normal color, warm Results & Data Results & Data ([facility]) Vital Signs (Past 12 Hours) Vital Signs Temp Pulse Resp BP BP Pulse Ox 08/02/21 16:48 36.6 C 89 21 131/81 92 08/02/21 14:43 87 24 08/02/21 11:46 36.7 C 84 19 130/75 90 08/02/21 11:05 82 22 87 L 08/02/21 10:18 90 22 90 08/02/21 07:50 36.6 C 91 H 21 123/75 90 08/02/21 07:28 87 22 93 Laboratory Results [facility] 08/02/21 06:57 Sodium 132 L Potassium 4.3 D Chloride 98 Carbon Dioxide 27 BUN 22 H Creatinine 0.70 Glucose 149 H Calcium 9.4
[2021-08-02] MEDS: ENOXAPARIN INJ 40 MG/0.4 ML SYR SQ SCH (20:03)
[2021-08-02] MEDS: DOCUSATE SODIUM 100 MG CAP PO SCH (20:03)
[2021-08-03] MEDS: dexAMETHasone 6 MG in SYRINGE 0 ML IV SCH (08:11)
[2021-08-03] MEDS: BENZONATATE 100 MG CAPSULE PO SCH ×3 (08:12→20:42)
[2021-08-03] MEDS: ASPIRIN 81 MG ECTAB PO SCH (08:12)
[2021-08-03] MEDS: PANTOprazole 40 MG TAB PO SCH (08:12)
[2021-08-03] MEDS: DOCUSATE SODIUM 100 MG CAP PO SCH ×2 (08:12→20:42)
[2021-08-03] MEDS: METOPROLOL SUCC 50MG EXT REL TAB PO SCH (08:12)
[2021-08-03] MEDS: MULTIVITAMIN TAB PO SCH (08:12)
[2021-08-03] MEDS: MONTELUKAST SODIUM 10 MG TABLET PO SCH (08:12)
[2021-08-03] MEDS: LACTOBACILLUS ACIDOPHILUS 1 GM PACK PO SCH ×2 (08:13→20:42)
[2021-08-03] MEDS: UMECLIDINIUM BROMIDE 62.5MCG/BLISTER 7 PUFFS/INHALER INH SCH (08:13)
[2021-08-03] MEDS: guaiFENesin/CODEINE 100MG/10MG 5ML UDC PO PRN (08:18)
[2021-08-03 08:56] LABS: Hematocrit (blood only) 42.5 % (42-52); Mean Corpuscular Hemoglobin 32.1 pg (25-34); Mean Corpuscular Hgb Conc 35.3 g/dL (32-36); Mean Platelet Volume 10.1 fL (7.4-10.4); Platelet Count 395 K/uL (130-400); RDW Coefficient of Variation 12.6 % (11.5-14.5); Red Blood Count 4.67 M/uL (4.7-6.1); White Blood Count 9.34 K/uL (4.8-10.8)
[2021-08-03 09:21] LABS: BUN Creatinine Ratio 31.7 (10-20); C Reactive Protein 7.61 mg/dl (0-0.29); Calcium 9.2 mg/dl (8.5-10.1); Creatinine Clr Calc Pharmacy 88.5 ml/min; Est GFR (African American) 113.6 ml/min
--- NOTE | 2021-08-03 18:17 | Hospitalist Progress Note ---
Date of Service August 03, 2021 Assessment & Plan (1) Acute respiratory failure with hypoxia: (2) Pneumonia due to COVID-19 virus: Plan: Patient is a 66yr male with of PMH of COPD, LBBB, HTN, GERD and other medical problems listed below who presents with ongoing fever, cough and SOB. COVID-19 pneumonia Acute respiratory failure with hypoxia H/O COPD -CTA:No evidence of pulmonary embolism. Groundglass and reticular opacities compatible with Covid pneumonia. Lymphadenopathy in the mediastinum and lower cervical stations, likely reactive. 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 (7) GERD (gastroesophageal reflux disease): Plan: Continue PPI DVT Px: SQ Lovenox Code status: FULL CODE Admission and Anticipated Discharge Date Admission Date: July 28, 2021 Subjective Patient is seen and examined at bedside States feeling tired Still has intermittent cough Less short of breath today subjectively Currently on high flow oxygen Denies chest pain, dizziness, nausea, abdominal pain Proning during my encounter Review of Systems Review of Systems: All systems reviewed & are unremarkable except as noted in Subjective Physical Exam Physical Exam: Physical Exam: Vitals signs as noted above General Appearance:Thin, frail, no apparent distress Head: normocephalic, Atraumatic Eyes: normal inspection, EOMI Neck: supple, Trachea midline Respiratory/Chest: Decreased breath sounds, B/l Minimal basal crackles Cardiovascular: S1, S2, No murmur Abdomen/GI:Soft, Non tender, Bowel sounds present Extremities/Musculoskeletal:normal inspection, no edema Neurologic/Psych:AAOX3, grossly no focal neurological deficits Skin: normal color, warm Results & Data Results & Data ([facility]) Vital Signs (Past 12 Hours) Vital Signs Temp Pulse Resp BP Pulse Ox 08/03/21 14:47 37.0 C 83 20 122/65 90 08/03/21 11:48 36.6 C 81 20 114/69 94 08/03/21 11:30 80 26 H 92 08/03/21 07:53 88 24 92 08/03/21 07:25 37.0 C 83 18 130/72 96 Laboratory Results Short CBC 08/03/21 Range/Units 08:37 WBC 9.34 (4.8-10.8) K/uL Hgb 15.0 (14.0-18.0) g/dL Hct 42.5 (42-52) % Plt Count 395 (130-400) K/uL BMP 08/03/21 08:37 Sodium 131 L Potassium 4.0 Chloride 97 L Carbon Dioxide 25 BUN 23 H Creatinine 0.73 Glucose 180 H Calcium 9.2
[2021-08-03] MEDS: ENOXAPARIN INJ 40 MG/0.4 ML SYR SQ SCH (20:42)
[2021-08-04 07:53] LABS: BUN Creatinine Ratio 36.5 (10-20); Calcium 9.2 mg/dl (8.5-10.1); Creatinine Clr Calc Pharmacy 113.4 ml/min; Est GFR (African American) 127.6 ml/min; Est GFR (Non-African American) 110.1 ml/min; Potassium 4.1 mmol/L (3.5-5.1)
[2021-08-04] MEDS ORDERED: LORazepam 0.5 MG/1 ML VIAL IV ONE (08:26)
[2021-08-04] MEDS: DOCUSATE SODIUM 100 MG CAP PO SCH ×2 (08:31→20:25)
[2021-08-04] MEDS: MONTELUKAST SODIUM 10 MG TABLET PO SCH (08:31)
[2021-08-04] MEDS: LACTOBACILLUS ACIDOPHILUS 1 GM PACK PO SCH ×2 (08:32→20:26)
[2021-08-04] MEDS: BENZONATATE 100 MG CAPSULE PO SCH ×3 (08:38→20:25)
[2021-08-04] MEDS: dexAMETHasone 6 MG in SYRINGE 0 ML IV SCH (08:38)
[2021-08-04] MEDS: METOPROLOL SUCC 50MG EXT REL TAB PO SCH (08:39)
[2021-08-04] MEDS: PANTOprazole 40 MG TAB PO SCH (08:39)
[2021-08-04] MEDS: UMECLIDINIUM BROMIDE 62.5MCG/BLISTER 7 PUFFS/INHALER INH SCH (08:40)
[2021-08-04] MEDS: MULTIVITAMIN TAB PO SCH (08:40)
[2021-08-04] MEDS: ASPIRIN 81 MG ECTAB PO SCH (08:40)
[2021-08-04 09:03] LABS: Base Excess ABG 1.5 mEq/L (-9-1.8); HCO3 ABG 24 mmol/L (19-24); PCO2 ABG 34 mmHg (35-46); PO2 ABG 64 mmHg (80-95); pH ABG 7.48 (7.35-7.45)
[2021-08-04 09:04] LABS: Allen Test Pos (Pos)
--- NOTE | 2021-08-04 09:08 | XRay Report ---
XR chest 1V portable HISTORY: 66 years-old Male covid acute shortness of breath. COVID Positive. COMPARISON: CTA chest 08/02/2021, chest radiograph 08/01/2021 TECHNIQUE: Portable AP view of the chest FINDINGS: Cardiac mediastinal and hilar silhouettes are unchanged. There is no pneumothorax or large pleural ef fusion. Emphysema. Interstitial coarsening with extensive bilateral airspace opacities, progressively worsened. Bones appear grossly intact. IMPRESSION: Emphysema with progressively worsened bilateral airspace opacities suggestive of viral pn eumonia. ACT 112: Negative or not required by law. The above report was generated using voice recognition software. It may contain grammatical, syntax o r spelling errors. Electronically signed by: Daren Marlow M.D. 08/04/2021 9:07 AM
[2021-08-04] MEDS: ALBUT/IPRATROP 3MG/0.5MG NEB 3 ML VIAL NEB SCH ×4 (09:15→20:41)
[2021-08-04] MEDS ORDERED: DEXAMETHASONE IV ONE (10:47)
--- NOTE | 2021-08-04 10:52 | Pulmonary Consultation ---
Date of Consultation August 04, 2021 Assessment & Plan (1) Pneumonia due to 2019-nCoV: (2) Acute respiratory failure with hypoxia: (3) COPD (chronic obstructive pulmonary disease): (4) Shortness of breath: CT chest 08/02/2021 personally reviewed: Centrilobular paraseptal emphysema appreciated bilaterally Diffuse groundglass opacities appreciated upper and lower lobes. Minimal lower lobe dense consolidative process appreciated bilaterally, questionable rounded atelectasis There is possibility of interstitial thickening bilateral basal surfaces. It is difficult to ascertain given the patient has significant opacities No central pulmonary embolism No significant mediastinal lymphadenopathy --Acute hypoxic respiratory failure Secondary to multilobar COVID-19 pneumonia COVID-19 PCR positive 07/25/2021, repeat + 07/28/2021 CRP 7.61 Procalcitonin < 0.05 Patient is past 72 hours in the hospital to be considered for monoclonal antibodies Continue with O2 supplementation to keep oxygen saturation between 90-92%. Awake proning will be helpful Continue with incentive spirometry Continue with flutter valve. Recommend patient to be kept euvolemic to negative balance --COPD with emphysema Continue with Incruse for the time being --Questionable ILD No previous CAT scans to compare other than on 07/28/2021 Outpatient work-up Plan: Increase dexamethasone to 20 mg for 5 days followed by 10 mg for 5 days Change Protonix to 40 mg twice daily Doxycycline 100 mg twice daily for 5 days Continue with incentive spirometry and flutter valve. Mucinex added Patient remains in critical condition given significant high requirement of oxygen. If there is any worsening or any respiratory distress/compromise patient will need to be intubated He is understanding and agreeable to it if need be 0 I have personally spent 45 minutes of critical care time in the direct management of this patient. This is a life/limb threatening event. This includes time spent evaluating patient, direct bedside care, chart review, placing orders, interpretation of diagnostic studies, discussion with consultants, patient, and family members, as well as other required patient management activities. This time is exclusive of all separately billable procedures, and teaching time and separate from and in addition to any other critical care service time. Please note the above document was generated using voice recognition software. It may contain grammatical, syntax or spelling errors. History of Present Illness Attending Physician: Juni Ge MD History of Present Illness 66-year-old male was admitted to the hospital for fever cough and shortness of breath. Patient was tested positive on 07/25/2021. Past medical history: COPD, hypertension, GERD Patient is not vaccinated against COVID-19 Pulmonary consulted because of increasing oxygen requirement At the time of examination patient was 100% high flow, 60 L saturating 94% He was saturating in mid to high 20s. Not in respiratory distress. He stated that he is doing better compared to when he came to the hospital Denied any chest pain. Did complain of some burning in the nose when he takes deep breath with a high flow. Denies any nausea or vomiting. Fair appetite He has been coughing and bringing up clear phlegm. Denies any hemoptysis. Social history: Ex-smoker, approximately 10-[id number] smoking history. Social alcohol. Denies illicit drug use Allergies Allergy/AdvReac Type Severity Reaction Status Date / Time ABRAM Inhibitors Allergy Intermediate elevates k+ Verified 07/28/21 13:51 Home Medications Medication Instructions Recorded Confirmed Type chlorthalidone 25 mg tablet 25 mg PO DAILY 03/17/19 07/28/21 History metoprolol succinate 50 mg capsule 50 mg PO DAILY 03/17/19 07/28/21 History sprinkle, ext. release 24 hr multivitamin 1 tab PO DAILY 03/17/19 07/28/21 History omeprazole 20 mg tablet,delayed 20 mg PO DAILY 03/17/19 07/28/21 History release fluticasone propionate 50 2 spray INTRANASAL DAILY PRN 01/07/20 07/28/21 History mcg/actuation nasal spray,suspension montelukast 10 mg tablet 10 mg PO DAILY 01/07/20 07/28/21 History umeclidinium 62.5 mcg/actuation 1 inh INHALATION DAILY 01/07/20 07/28/21 History blister powder for inhalation (Incruse Ellipta) Lactobacillus acidoph-L.bulgaricus 1 tab PO BID #30 tab 01/10/20 07/28/21 Rx 1 million cell chewable tablet (Lactinex) amoxicillin 875 mg tablet 875 mg PO BID 07/28/21 07/28/21 History aspirin 81 mg tablet,delayed 81 mg PO DAILY 07/28/21 07/28/21 History release Patient History Medical History (Updated 08/04/21 @ 11:09 by Cedric Matthwe MD) COPD (chronic obstructive pulmonary disease) GERD (gastroesophageal reflux disease) Hypertension LBBB (left bundle branch block) Prediabetes Surgical History (Updated 07/28/21 @ 15:58 by Abby Owen PA-C) Hx of colonoscopy No pertinent past surgical history Family History Other Cancer Diabetes Hypertension Social History (Updated 07/28/21 @ 16:50 by Abby Owen PA-C) Smoking Status: Former smoker Second Hand Exposure: Yes; Do You Dip or Chew Tobacco: No; Hx Alcohol Use: Yes Alcohol type: beer Alcohol type Comment: 2-3 beers daily but none for past week Hx Substance Use: No Preferred Language: Hungarian Communication Ability: Effective Manager Leasing Required: No Beliefs That Will Affect Care: None Current Living Situation: Spouse Other Information That Helps Us Care for You: No Feels Safe at Home: Yes Safety Concerns: Feels Safe At This Time Assistive Devices: BiPap and Oxygen - Continuous Review of Systems Review of Systems: All systems reviewed & are unremarkable except as noted in HPI & below Physical Exam Physical Exam: Constitutional: No acute distress HEENT: EOMI, PERRLA Respiratory system: Decreased air entry bilaterally, no wheeze, no rhonchi, Positive crackles bilaterally CVS: S1-S2 positive, no murmurs or gallops Abdomen: Soft, nontender, nondistended, positive bowel sounds x4 Extremities: +2 pulses bilaterally radialis/ dorsalis pedis, no cyanosis, no edema Neuro: Awake alert oriented x3 Psych: Normal mood and affect G/U: No Nelson Skin: no rashes, warm and dry Lymphatic: no cervical or axillary lymphadenopathy Results & Data Results & Data ([facility]) Vital Signs (Past 12 Hours) Vital Signs Temp Pulse Pulse Resp BP Pulse Ox 08/04/21 09:15 98 H 98 H 26 H 92 08/04/21 08:12 36.7 C 97 H 23 117/71 91 08/04/21 07:49 98 H 26 H 83 L 08/04/21 04:26 36.6 C 87 18 121/75 96 08/04/21 03:28 82 24 92 08/03/21 23:59 36.7 C 90 18 103/58 L 94 08/03/21 23:14 86 08/03/21 08:37 08/04/21 06:31 PG Care Time/CCT Total # of Minutes Spent Total Time Spent with Patient: Total time spent is greater than 50% in coordination of care (as documented) at patient's floor/unit and/or counseling patient: Coding Level of Care Code New Pt Critical Care 1st 30-74 mins Patient Type New Diagnoses Pneumonia due to 2019-nCoV U07.1; J12.82 Acute respiratory failure with hypoxia J96.01 COPD (chronic obstructive pulmonary disease) J44.9 Shortness of breath R06.02 Time Spent (min) 45
[2021-08-04] MEDS ORDERED: dexAMETHasone 14 MG in DEXTROSE 5% 25 ML IV ONE (11:15)
[2021-08-04] MEDS: DOXYCYCLINE HYCLATE 100 MG in DEXTROSE 5% 100 ML IV SCH ×2 (12:12→22:36)
--- NOTE | 2021-08-04 17:33 | Hospitalist Progress Note ---
Date of Service August 04, 2021 Assessment & Plan (1) Acute respiratory failure with hypoxia: (2) Pneumonia due to COVID-19 virus: Plan: Patient is a 66yr male with of PMH of COPD, LBBB, HTN, GERD and other medical problems listed below who presents with ongoing fever, cough and SOB. COVID-19 pneumonia Acute respiratory failure with hypoxia H/O COPD -CTA:No evidence of pulmonary embolism. Groundglass and reticular opacities compatible with Covid pneumonia. Lymphadenopathy in the mediastinum and lower cervical stations, likely reactive. 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 (7) GERD (gastroesophageal reflux disease): Plan: Continue PPI DVT Px: SQ Lovenox Code status: FULL CODE Admission and Anticipated Discharge Date Admission Date: July 28, 2021 Subjective Patient is seen and examined at bedside Desaturated to 80s while on high flow oxygen this morning and placed on BiPAP Patient states feeling tired Consulted pulmonology Less cough today No respiratory distress during my encounter while on High Flow Oxygen Denies chest pain, dizziness, nausea, abdominal pain Review of Systems Review of Systems: All systems reviewed & are unremarkable except as noted in Subjective Physical Exam Physical Exam: Physical Exam: Vitals signs as noted above General Appearance:Thin, frail, no apparent distress Head: normocephalic, Atraumatic Eyes: normal inspection, EOMI Neck: supple, Trachea midline Respiratory/Chest: Decreased breath sounds, B/l Minimal basal crackles Cardiovascular: S1, S2, No murmur Abdomen/GI:Soft, Non tender, Bowel sounds present Extremities/Musculoskeletal:normal inspection, no edema Neurologic/Psych:AAOX3, grossly no focal neurological deficits Skin: normal color, warm Results & Data Results & Data ([facility]) Vital Signs (Past 12 Hours) Vital Signs Temp Pulse Pulse Pulse Resp BP BP 08/04/21 16:00 89 08/04/21 15:08 81 20 08/04/21 14:33 85 08/04/21 14:28 81 20 08/04/21 12:22 88 08/04/21 12:20 36.8 C 89 28 H 114/72 08/04/21 11:30 36.8 C 95 H 22 130/75 08/04/21 11:07 92 H 92 H 29 H 08/04/21 09:15 98 H 98 H 26 H 08/04/21 08:12 36.7 C 97 H 23 117/71 08/04/21 07:49 98 H 26 H Pulse Ox 08/04/21 16:00 08/04/21 15:08 93 08/04/21 14:33 08/04/21 14:28 92 08/04/21 12:22 08/04/21 12:20 94 08/04/21 11:30 91 08/04/21 11:07 92 08/04/21 09:15 92 08/04/21 08:12 91 08/04/21 07:49 83 L Laboratory Results BMP 08/04/21 06:31 Sodium 131 L Potassium 4.1 Chloride 98 Carbon Dioxide 25 BUN 20 H Creatinine 0.55 L Glucose 88 Calcium 9.2
[2021-08-04] MEDS: ENOXAPARIN INJ 40 MG/0.4 ML SYR SQ SCH (20:16)
[2021-08-04] MEDS: ACYCLOVIR 400 MG TAB PO SCH (20:25)
[2021-08-04] MEDS: PANTOprazole 40 MG in SYRINGE 0 ML IV SCH (20:26)
[2021-08-04] MEDS: guaiFENesin 600 MG TABCR PO SCH (20:26)
[2021-08-04] MEDS ORDERED: LOTEPREDNOL ETABONATE OP SCH (21:00)
[2021-08-04] MEDS ORDERED: LORazepam 0.5 MG TAB PO ONE (21:00)
[2021-08-04] MEDS ORDERED: FUROSEMIDE INJ 20 MG/2 ML VIAL IV ONE (21:52)
[2021-08-04] MEDS ORDERED: methylPREDNISolone 40 MG in SYRINGE 0 ML IV ONE (22:00)
--- NOTE | 2021-08-04 22:20 | Communication Note ---
Date of Service: August 04, 2021 Patient with worsening hypoxemia on maximal BiPAP/CPAP as per RN. Patient voiced to RN that he does not want to be intubated. Patient seen at bedside. DNR decision confirmed with patient. Continue medical management as per patient request. Patient updated of patient decision over the phone.
[2021-08-05] MEDS ORDERED: XOPENEX/ATROVENT 1.25mg/0.5MG NEB COMBO NEB STA (03:18)
[2021-08-05] MEDS ORDERED: IPRATROPIUM BROMIDE NEB SOLN 0.02% 2.5 ML VIAL INH STA (03:22)
[2021-08-05] MEDS ORDERED: LEVALBUTEROL 1.25MG/0.5ML NEB INH STA (03:22)
[2021-08-05] MEDS: dexAMETHasone 20 MG in DEXTROSE 5% 25 ML IV SCH (03:30)
[2021-08-05 04:27] LABS: Basophils # (auto) 0.01 K/uL (0-0.2); Basophils % (auto) 0.1 %; Hematocrit (blood only) 40.2 % (42-52); Hemoglobin 14.2 g/dL (14.0-18.0); Immature Granulocytes # (auto) 0.03 K/uL (0.00-0.02); Immature Granulocytes % (auto) 0.3 %; Lymphocytes # (auto) 0.34 K/uL (1.2-3.4); Lymphocytes % (auto) 3.7 %; Mean Corpuscular Hemoglobin 32.3 pg (25-34); Mean Corpuscular Hgb Conc 35.3 g/dL (32-36); Mean Corpuscular Volume 91.6 fL (80-100); Mean Platelet Volume 9.7 fL (7.4-10.4); Monocytes # (auto) 0.26 K/uL (0.11-0.59); Monocytes % (auto) 2.8 %; Neutrophils # (auto) 8.65 K/uL (1.4-6.5); Neutrophils % (auto) 93.1 %; Platelet Count 462 K/uL (130-400); RDW Coefficient of Variation 12.5 % (11.5-14.5); Red Blood Count 4.39 M/uL (4.7-6.1); White Blood Count 9.29 K/uL (4.8-10.8)
[2021-08-05 04:41] LABS: Partial Thromboplastin Ratio 0.9; Partial Thromboplastin Time 24.5 Seconds (21.0-31.0)
[2021-08-05 04:49] LABS: HCO3 ABG 26 mmol/L (19-24); PCO2 ABG 37 mmHg (35-46); PO2 ABG 67 mmHg (80-95); pH ABG 7.46 (7.35-7.45)
[2021-08-05 04:52] LABS: Allen Test POS (Pos)
[2021-08-05 04:53] LABS: Albumin Globulin Ratio 0.5 (0.9-2); Albumin Level 2.4 gm/dl (3.4-5.0); BUN Creatinine Ratio 31.2 (10-20); Bilirubin,Total 0.7 mg/dl (0.2-1); C Reactive Protein 13.7 mg/dl (0-0.29); Calcium 9.3 mg/dl (8.5-10.1); Creatinine Clr Calc Pharmacy 101.1 ml/min; Est GFR (African American) 116.3 ml/min; Est GFR (Non-African American) 100.3 ml/min; Globulin 5.2 gm/dl (2.5-4.0); Magnesium 2.5 mg/dl (1.8-2.4); Potassium 4.8 mmol/L (3.5-5.1); Total Protein 7.6 gm/dl (6.4-8.2)
[2021-08-05] MEDS: guaiFENesin/CODEINE 100MG/10MG 5ML UDC PO PRN ×2 (08:07→14:36)
[2021-08-05] MEDS: ALBUT/IPRATROP 3MG/0.5MG NEB 3 ML VIAL NEB SCH (08:26)
[2021-08-05] MEDS ORDERED: dexAMETHasone 20 MG in DEXTROSE 5% 25 ML IV SCH (09:00)
[2021-08-05] MEDS: LACTOBACILLUS ACIDOPHILUS 1 GM PACK PO SCH ×2 (09:10→22:18)
[2021-08-05] MEDS: PANTOprazole 40 MG in SYRINGE 0 ML IV SCH ×2 (09:10→22:18)
[2021-08-05] MEDS: guaiFENesin 600 MG TABCR PO SCH ×2 (09:10→22:18)
[2021-08-05] MEDS: ASPIRIN 81 MG ECTAB PO SCH (09:11)
[2021-08-05] MEDS: BENZONATATE 100 MG CAPSULE PO SCH ×3 (09:11→22:17)
[2021-08-05] MEDS: MULTIVITAMIN TAB PO SCH (09:11)
[2021-08-05] MEDS: METOPROLOL SUCC 50MG EXT REL TAB PO SCH (09:11)
[2021-08-05] MEDS: MONTELUKAST SODIUM 10 MG TABLET PO SCH (09:11)
[2021-08-05] MEDS: DOCUSATE SODIUM 100 MG CAP PO SCH ×2 (09:12→22:17)
[2021-08-05] MEDS: UMECLIDINIUM BROMIDE 62.5MCG/BLISTER 7 PUFFS/INHALER INH SCH (09:13)
[2021-08-05] MEDS ORDERED: ALBUT/IPRATROP 3MG/0.5MG NEB 3 ML VIAL NEB PRN (09:32)
[2021-08-05] MEDS: ACYCLOVIR 400 MG TAB PO SCH ×2 (10:45→22:17)
[2021-08-05] MEDS: DOXYCYCLINE HYCLATE 100 MG in DEXTROSE 5% 100 ML IV SCH ×2 (10:46→22:44)
--- NOTE | 2021-08-05 12:21 | Pulmonology Progress Note ---
Date of Service August 05, 2021 Assessment & Plan (1) Pneumonia due to 2019-nCoV: (2) Acute respiratory failure with hypoxia: (3) COPD (chronic obstructive pulmonary disease): (4) Shortness of breath: Plan: CT chest 08/02/2021 personally reviewed: Centrilobular paraseptal emphysema appreciated bilaterally Diffuse groundglass opacities appreciated upper and lower lobes. Minimal lower lobe dense consolidative process appreciated bilaterally, questionable rounded atelectasis There is possibility of interstitial thickening bilateral basal surfaces. It is difficult to ascertain given the patient has significant opacities No central pulmonary embolism No significant mediastinal lymphadenopathy --Acute hypoxic respiratory failure Secondary to multilobar COVID-19 pneumonia COVID-19 PCR positive 07/25/2021, repeat + 07/28/2021 CRP 7.61 Procalcitonin < 0.05 Patient is past 72 hours in the hospital to be considered for monoclonal antibodies Continue with O2 supplementation to keep oxygen saturation between 90-92%. Awake proning will be helpful Continue with incentive spirometry Continue with flutter valve. Recommend patient to be kept euvolemic to negative balance --COPD with emphysema Continue with Incruse for the time being --Questionable ILD No previous CAT scans to compare other than on 07/28/2021 Outpatient work-up --DNR/DNI I reconfirmed when I talked with him 08/05/2021 He would not like to be intubated even if it is a question of life and . Plan: In/out: -842. Urine output 1301 Continue with dexamethasone high-dose with PPI Continue with incentive spirometry Patient is willing to shave his kelley to see if he does better on CPAP. This could be tried. Overall prognosis of patient is poor given the significant oxygen requirement, underlying COPD/ILD and him not wanting to be intubated Case discussed with Dr. Oscar No further recommendation from pulmonary perspective. Will sign off. Please call directly with any questions. Please note the above document was generated using voice recognition software. It may contain grammatical, syntax or spelling errors.Any formal questions or concerns about the content, text or information contained within the body of this dictation should be directly addressed to the provider for clarification. Admission and Anticipated Discharge Date Admission Date: July 28, 2021 Subjective Patient seen and examined at bedside. No acute distress He was on 60 L, 100% FiO2 high flow. Saturating 88-90% Patient tried CPAP yesterday but his saturation was significantly low. Hospitalist did come and speak with the patient regarding intubation he said he would not like to be intubated Denied any headache, no nausea, no vomiting Fair appetite Review of Systems Review of Systems: All systems reviewed & are unremarkable except as noted in Subjective Physical Exam Physical Exam: Constitutional: No acute distress HEENT: EOMI, PERRLA Respiratory system: Decreased air entry bilaterally, no wheeze, no rhonchi, Positive crackles bilaterally CVS: S1-S2 positive, no murmurs or gallops Abdomen: Soft, nontender, nondistended, positive bowel sounds x4 Extremities: +2 pulses bilaterally radialis/ dorsalis pedis, no cyanosis, no edema Neuro: Awake alert oriented x3 Psych: Normal mood and affect G/U: No Nelson Skin: no rashes, warm and dry Lymphatic: no cervical or axillary lymphadenopathy Results & Data Results & [facility] ([facility]) Vital Signs (Past 12 Hours) Vital Signs Temp Pulse Resp BP Pulse Ox 08/05/21 10:14 24 88 L 08/05/21 09:50 97 H 27 H 85 L 08/05/21 09:40 106 H 29 H 86 L 08/05/21 09:30 103 H 24 88 L 08/05/21 09:20 106 H 17 87 L 08/05/21 09:10 108 H 25 H 88 L 08/05/21 09:00 101 H 23 108/61 88 L 08/05/21 08:50 105 H 22 87 L 08/05/21 08:40 102 H 18 88 L 08/05/21 08:30 108 H 24 87 L 08/05/21 08:26 28 H 78 L 08/05/21 08:20 99 H 22 87 L 08/05/21 08:10 113 H 28 H 75 L 08/05/21 08:00 37.2 C 104 H 23 81 L 08/05/21 07:50 111 H 26 H 83 L 08/05/21 07:40 109 H 34 H 80 L 08/05/21 07:30 111 H 35 H 79 L 08/05/21 07:20 106 H 30 H 85 L 08/05/21 07:10 104 H 35 H 86 L 08/05/21 07:00 101 H 26 H 91 08/05/21 06:45 102 H 28 H 89 L 08/05/21 05:30 113 H 32 H 81 L 08/05/21 05:20 93 H 24 94 08/05/21 05:10 87 20 92 08/05/21 05:00 94 H 25 H 91 08/05/21 04:50 83 22 93 08/05/21 04:40 92 H 29 H 93 08/05/21 04:30 90 30 H 92 08/05/21 04:20 92 H 27 H 93 08/05/21 04:10 87 23 96 08/05/21 04:00 90 27 H 95 08/05/21 03:50 78 23 92 08/05/21 03:41 36.6 C 08/05/21 03:40 87 25 H 89 L 08/05/21 03:30 88 31 H 87 L 08/05/21 03:25 88 37 H 89 L 08/05/21 03:20 97 H 31 H 81 L 08/05/21 03:10 85 21 80 L 08/05/21 03:00 87 27 H 76 L 08/05/21 02:50 82 22 84 L 08/05/21 02:40 81 22 86 L 08/05/21 02:30 80 21 88 L 08/05/21 02:20 79 20 89 L 08/05/21 02:10 82 22 88 L 08/05/21 02:00 81 21 117/73 88 L 08/05/21 01:50 80 23 90 08/05/21 01:40 80 23 89 L 08/05/21 01:30 80 22 89 L 08/05/21 01:20 82 23 90 08/05/21 01:10 80 21 92 08/05/21 01:00 82 22 93 08/05/21 00:50 81 22 93 08/05/21 00:40 82 26 H 95 08/05/21 00:30 81 26 H 95 08/05/21 00:20 83 24 93 08/05/21 04:04 08/05/21 04:04 PG Care Time/CCT Total # of Minutes Spent Total Time Spent with Patient: Total time spent is greater than 50% in coordination of care (as documented) at patient's floor/unit and/or counseling patient: Coding Level of Care Code 02083 Subseq Hosp Care Lvl 3 Diagnoses Pneumonia due to 2019-nCoV U07.1; J12.82 Acute respiratory failure with hypoxia J96.01 COPD (chronic obstructive pulmonary disease) J44.9 Shortness of breath R06.02
--- NOTE | 2021-08-05 15:04 | Hospitalist Progress Note ---
Date of Service August 05, 2021 Assessment & Plan (1) Acute respiratory failure with hypoxia: (2) Pneumonia due to COVID-19 virus: Plan: Patient is a 66yr male with of PMH of COPD, LBBB, HTN, GERD and other medical problems listed below who presents with ongoing fever, cough and SOB. COVID-19 pneumonia Acute respiratory failure with hypoxia complicated by COPD -CTA:No evidence of pulmonary embolism. Groundglass and reticular opacities compatible with Covid pneumonia. Lymphadenopathy in the mediastinum and lower cervical stations, likely reactive. 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 (7) GERD (gastroesophageal reflux disease): Plan: Continue PPI DVT Px: SQ Lovenox Code status: DNR/DNI Prognosis remains poor Admission and Anticipated Discharge Date Admission Date: July 28, 2021 Subjective 08/05/2021 The patient was seen and examined in telemetry unit and in the Covid room He has been feeling any better and requiring 6 L at 100% FiO2 to maintain saturation around 89% He refused to be intubated and remains DNR/DNI Denies any other symptoms except shortness of breath Review of Systems Review of Systems: All systems reviewed and are unremarkable except as noted below Respiratory: Moderate shortness of breath at rest Physical Exam Physical Exam: Lying in bed with mild to moderate shortness of breath Constitutional: well developed, well nourished and + ill appearing Eyes: PERRL, conjunctivae normal, anicteric sclerae ENMT: external ear and nose normal, oropharynx normal Neck: trachea midline, no thyromegaly Respiratory: no respiratory distress Auscultation: + diminished lung sounds; no crackles Cardiovascular: Rate/Rhythm: regular rate, regular rhythm and + tachycardic Heart Sounds: normal S1 and normal S2; no murmur Extremities: no edema Gastrointestinal (Abdomen): Inspection/Auscultation: normal bowel sounds; abdomen not distended Percussion/Palpation: abdomen soft; abdomen nontender Musculoskeletal: No acute arthritis in any joint Neurologic: Alert, awake and oriented x3. Generally weak and lethargic Lymphatic: no cervical or axillary lymphadenopathy Results & Data Results & Data ([facility]) Vital Signs (Past 12 Hours) Vital Signs Temp Pulse Pulse Resp BP Pulse Ox 08/05/21 14:28 106 H 20 89 L 08/05/21 12:00 92 H 23 82 L 08/05/21 11:30 98 H 25 H 83 L 08/05/21 11:00 102 H 23 89 L 08/05/21 10:30 99 H 26 H 86 L 08/05/21 10:14 24 88 L 08/05/21 10:00 99 H 19 87 L 08/05/21 09:50 97 H 27 H 85 L 08/05/21 09:40 106 H 29 H 86 L 08/05/21 09:30 103 H 24 88 L 08/05/21 09:20 106 H 17 87 L 08/05/21 09:10 108 H 25 H 88 L 08/05/21 09:00 101 H 23 108/61 88 L 08/05/21 08:50 105 H 22 87 L 08/05/21 08:40 102 H 18 88 L 08/05/21 08:30 108 H 24 87 L 08/05/21 08:26 28 H 78 L 08/05/21 08:20 99 H 22 87 L 08/05/21 08:10 113 H 28 H 75 L 08/05/21 08:00 37.2 C 104 H 23 81 L 08/05/21 07:50 111 H 26 H 83 L 08/05/21 07:40 109 H 34 H 80 L 08/05/21 07:30 111 H 35 H 79 L 08/05/21 07:20 106 H 30 H 85 L 08/05/21 07:10 104 H 35 H 86 L 08/05/21 07:00 101 H 26 H 91 08/05/21 06:45 102 H 28 H 89 L 08/05/21 05:30 113 H 32 H 81 L 08/05/21 05:20 93 H 24 94 08/05/21 05:10 87 20 92 08/05/21 05:00 94 H 25 H 91 08/05/21 04:50 83 22 93 08/05/21 04:40 92 H 29 H 93 08/05/21 04:30 90 30 H 92 08/05/21 04:20 92 H 27 H 93 08/05/21 04:10 87 23 96 08/05/21 04:00 90 27 H 95 08/05/21 03:50 78 23 92 08/05/21 03:41 36.6 C 08/05/21 03:40 87 25 H 89 L 08/05/21 03:30 88 31 H 87 L 08/05/21 03:25 88 37 H 89 L 08/05/21 03:20 97 H 31 H 81 L 08/05/21 03:10 85 21 80 L 08/05/21 03:00 87 27 H 76 L Laboratory Results Short CBC 08/05/21 Range/Units 04:04 WBC 9.29 (4.8-10.8) K/uL Hgb 14.2 (14.0-18.0) g/dL Hct 40.2 L (42-52) % Plt Count 462 H (130-400) K/uL BMP 08/05/21 04:04 Sodium 129 L Potassium 4.8 D Chloride 95 L Carbon Dioxide 28 BUN 21 H Creatinine 0.69 Glucose 153 H Calcium 9.3 Liver Function 08/05/21 Range/Units 04:04 Total Bilirubin 0.7 (0.2-1) mg/dl AST 29 (15-37) U/L ALT 55 (12-78) Alkaline Phosphatase 92 (45-117) U/L Albumin 2.4 L (3.4-5.0) gm/dl Medications Administered Current Inpatient Medications Acetaminophen (Acetaminophen 325 Mg Tab) 650 mg PO Q4H PRN PRN Reason: Pain or Fever Stop: 08/27/21 22:30 Last Admin: 08/03/21 05:09 Dose: 650 mg Documented by: Acyclovir (Acyclovir 400 Mg Tab) 800 mg PO BID [facility] Stop: 09/03/21 20:59 Last Admin: 08/05/21 10:45 Dose: 800 mg Documented by: Albuterol (Albut/Ipratrop 3mg/0.5mg Neb 3 Ml Vial) 3 ml NEB QIDR PRN; Protocol PRN Reason: Shortness Of Breath Or Wheezing Stop: 09/03/21 08:29 Aspirin (Aspirin 81 Mg Ectab) 81 mg PO DAILY [facility] Stop: 08/28/21 08:59 Last Admin: 08/05/21 09:11 Dose: 81 mg Documented by: Benzonatate (Benzonatate 100 Mg Capsule) 100 mg PO TID [facility] Stop: 08/30/21 20:59 Last Admin: 08/05/21 14:26 Dose: 100 mg Documented by: Docusate Sodium (Docusate Sodium 100 Mg Cap) 100 mg PO BID [facility] Stop: 09/01/21 20:59 Last Admin: 08/05/21 09:12 Dose: 100 mg Documented by: Enoxaparin Sodium (Enoxaparin Inj 40 Mg/0.4 Ml Syr) 40 mg SQ Q24H [facility] Stop: 08/27/21 20:59 Last Admin: 08/04/21 20:16 Dose: Not Given Documented by: Fluticasone Propionate (Fluticasone Propionate Na Spr 16 Gm Btl) 2 sprays AKANKSHA DAILY PRN PRN Reason: Nasal Congestion Stop: 08/27/21 16:02 Guaifenesin (Guaifenesin 600 Mg Tabcr) 600 mg PO Q12 [facility] Stop: 09/03/21 20:59 Last Admin: 08/05/21 09:10 Dose: 600 mg Documented by: Guaifenesin/Codeine Phosphate (Guaifenesin/Codeine 100mg/10mg 5ml Udc) 5 ml PO Q6H PRN PRN Reason: Cough Stop: 08/27/21 16:01 Last Admin: 08/05/21 14:36 Dose: 5 ml Documented by: Doxycycline Hyclate 100 mg/ (Dextrose) 110 mls @ 50 mls/hr IV Q12H [facility] Stop: 08/09/21 10:59 Last Infusion: 08/05/21 13:00 Dose: Infused Documented by: Pantoprazole Sodium 40 mg/ (Syringe) 10 mls @ 5 mls/min IV BID [facility] Stop: 09/03/21 20:59 Last Admin: 08/05/21 09:10 Dose: 5 mls/min Documented by: Dexamethasone 10 mg/ Syringe 2.5 mls @ 1 mls/min IV Q24H [facility] Stop: 08/13/21 09:03 Dexamethasone 20 mg/ Dextrose 30 mls @ 0.833 mls/min IV DAILY [facility] Stop: 08/07/21 09:37 Last Infusion: 08/05/21 04:10 Dose: Infused Documented by: Lactobacillus Acidophilus (Lactobacillus Acidophilus 1 Gm Pack) 1 gm PO BID [facility] Stop: 08/27/21 20:59 Last Admin: 08/05/21 09:10 Dose: 1 gm Documented by: Metoprolol Succinate (Metoprolol Succ 50mg Ext Rel Tab) 50 mg PO DAILY [facility] Stop: 08/28/21 08:59 Last Admin: 08/05/21 09:11 Dose: 50 mg Documented by: Miscellaneous (Loteprednol Etabonate Order Awaiting Action) 1 ea N/A QS [facility] Stop: 09/04/21 00:00 Montelukast Sodium (Montelukast Sodium 10 Mg Tablet) 10 mg PO DAILY [facility] Stop: 08/28/21 08:59 Last Admin: 08/05/21 09:11 Dose: 10 mg Documented by: Multivitamins (Multivitamin Tab) 1 tab PO DAILY [facility] Stop: 08/28/21 08:59 Last Admin: 08/05/21 09:11 Dose: 1 tab Documented by: Polyethylene Glycol (Polyethylene (Miralax) 17 Gm Pack) 17 gm PO DAILY PRN PRN Reason: Constipation Stop: 08/27/21 22:30 Umeclidinium Ryan (Umeclidinium Ryan 62.5mcg/Blister 7 Puffs/Inhaler) 1 puffs INH DAILY [facility] Stop: 08/28/21 08:59 Last Admin: 08/05/21 09:13 Dose: 1 puffs Documented by:
[2021-08-05] MEDS: ENOXAPARIN INJ 40 MG/0.4 ML SYR SQ SCH (22:17)
[2021-08-06] MEDS ORDERED: LORazepam 0.25 MG/0.5 ML VIAL IV STA ×2 (02:26→04:37)
[2021-08-06] MEDS ORDERED: LORazepam 2 MG/4 ML VIAL ONE ×2 (02:41→04:44)
[2021-08-06 08:07] LABS: BUN Creatinine Ratio 40.9 (10-20); Calcium 9.1 mg/dl (8.5-10.1); Creatinine Clr Calc Pharmacy 105.7 ml/min; Est GFR (African American) 118.4 ml/min; Est GFR (Non-African American) 102.2 ml/min; Magnesium 2.1 mg/dl (1.8-2.4); Phosphorus 3.2 mg/dl (2.5-4.9)
[2021-08-06] MEDS: dexAMETHasone 20 MG in DEXTROSE 5% 25 ML IV SCH (09:20)
[2021-08-06] MEDS: PANTOprazole 40 MG in SYRINGE 0 ML IV SCH ×2 (09:20→21:40)
[2021-08-06] MEDS: guaiFENesin/CODEINE 100MG/10MG 5ML UDC PO PRN (09:58)
[2021-08-06] MEDS ORDERED: LORazepam 0.25 MG/0.5 ML VIAL IV PRN (10:03)
[2021-08-06] MEDS: METOPROLOL SUCC 50MG EXT REL TAB PO SCH (10:10)
[2021-08-06] MEDS: ASPIRIN 81 MG ECTAB PO SCH (10:10)
[2021-08-06] MEDS: MULTIVITAMIN TAB PO SCH (10:10)
[2021-08-06] MEDS: ACYCLOVIR 400 MG TAB PO SCH ×2 (10:10→21:38)
[2021-08-06] MEDS: UMECLIDINIUM BROMIDE 62.5MCG/BLISTER 7 PUFFS/INHALER INH SCH (10:11)
[2021-08-06] MEDS: DOCUSATE SODIUM 100 MG CAP PO SCH ×2 (10:11→21:40)
[2021-08-06] MEDS: BENZONATATE 100 MG CAPSULE PO SCH ×3 (10:11→21:39)
[2021-08-06] MEDS: guaiFENesin 600 MG TABCR PO SCH ×2 (10:11→21:39)
[2021-08-06] MEDS: MONTELUKAST SODIUM 10 MG TABLET PO SCH (10:11)
[2021-08-06] MEDS: LACTOBACILLUS ACIDOPHILUS 1 GM PACK PO SCH ×2 (10:11→21:38)
[2021-08-06] MEDS: DOXYCYCLINE HYCLATE 100 MG in DEXTROSE 5% 100 ML IV SCH ×2 (10:50→22:28)
--- NOTE | 2021-08-06 15:00 | Hospitalist Progress Note ---
Date of Service August 06, 2021 Assessment & Plan (1) Acute respiratory failure with hypoxia: (2) Pneumonia due to COVID-19 virus: Plan: Patient is a 66yr male with of PMH of COPD, LBBB, HTN, GERD and other medical problems listed below who presents with ongoing fever, cough and SOB. COVID-19 pneumonia Acute respiratory failure with hypoxia complicated by COPD -CTA:No evidence of pulmonary embolism. Groundglass and reticular opacities compatible with Covid pneumonia. Lymphadenopathy in the mediastinum and lower cervical stations, likely reactive. 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 (7) GERD (gastroesophageal reflux disease): Plan: Continue PPI DVT Px: SQ Lovenox Code status: DNR/DNI Prognosis remains poor Will discuss with his Admission and Anticipated Discharge Date Admission Date: July 28, 2021 Subjective 08/05/2021 The patient was seen and examined in telemetry unit and in the Covid room He has been feeling any better and requiring 6 L at 100% FiO2 to maintain saturation around 89% He refused to be intubated and remains DNR/DNI Denies any other symptoms except shortness of breath 08/06/2021 The patient was seen and examined in telemetry unit and in the Covid room He has not been feeling any better and has had a very rough night yesterday Has been requiring BiPAP to maintain saturation He does not want to be intubated Review of Systems Review of Systems: All systems reviewed and are unremarkable except as noted below Respiratory: Moderate shortness of breath at rest Physical Exam Physical Exam: Lying in bed with mild to moderate shortness of breath with BiPAP in place Constitutional: well developed, well nourished and + ill appearing Eyes: PERRL, conjunctivae normal, anicteric sclerae ENMT: external ear and nose normal, oropharynx normal Neck: trachea midline, no thyromegaly Respiratory: no respiratory distress Auscultation: + diminished lung sounds; no crackles Cardiovascular: Rate/Rhythm: regular rate, regular rhythm and + tachycardic Heart Sounds: normal S1 and normal S2; no murmur Extremities: no edema Gastrointestinal (Abdomen): Inspection/Auscultation: normal bowel sounds; abdomen not distended Percussion/Palpation: abdomen soft; abdomen nontender Musculoskeletal: No acute arthritis in any joint Neurologic: Alert and awake. Generally weak Lymphatic: no cervical or axillary lymphadenopathy Results & Data Results & Data ([facility]) Vital Signs (Past 12 Hours) Vital Signs Temp Pulse Pulse Pulse Resp BP BP 08/06/21 11:54 37.0 C 104 H 28 H 102/76 08/06/21 10:04 124 H 38 H 08/06/21 09:43 117 H 30 H 08/06/21 07:41 117 H 45 H 08/06/21 07:39 36.1 C L 113 H 22 135/91 08/06/21 05:30 38 H 08/06/21 05:03 36.4 C L 110 H 27 H 123/74 08/06/21 04:43 100 H 28 H 08/06/21 03:00 94 H Pulse Ox 08/06/21 11:54 93 08/06/21 10:04 83 L 08/06/21 09:43 89 L 08/06/21 07:41 91 08/06/21 07:39 83 L 08/06/21 05:30 78 L 08/06/21 05:03 80 L 08/06/21 04:43 80 L 08/06/21 03:00 Laboratory Results [facility] 08/06/21 06:32 Sodium 133 L Potassium 4.0 D Chloride 100 Carbon Dioxide 28 BUN 27 H Creatinine 0.66 Glucose 88 Calcium 9.1 Medications Administered Current Inpatient Medications Acetaminophen (Acetaminophen 325 Mg Tab) 650 mg PO Q4H PRN PRN Reason: Pain or Fever Stop: 08/27/21 22:30 Last Admin: 08/03/21 05:09 Dose: 650 mg Documented by: Acyclovir (Acyclovir 400 Mg Tab) 800 mg PO BID [facility] Stop: 09/03/21 20:59 Last Admin: 08/06/21 10:10 Dose: 800 mg Documented by: Albuterol (Albut/Ipratrop 3mg/0.5mg Neb 3 Ml Vial) 3 ml NEB QIDR PRN; Protocol PRN Reason: Shortness Of Breath Or Wheezing Stop: 09/03/21 08:29 Last Admin: 08/06/21 04:42 Dose: 3 ml Documented by: Aspirin (Aspirin 81 Mg Ectab) 81 mg PO DAILY [facility] Stop: 08/28/21 08:59 Last Admin: 08/06/21 10:10 Dose: 81 mg Documented by: Benzonatate (Benzonatate 100 Mg Capsule) 100 mg PO TID [facility] Stop: 08/30/21 20:59 Last Admin: 08/06/21 10:11 Dose: 100 mg Documented by: Docusate Sodium (Docusate Sodium 100 Mg Cap) 100 mg PO BID [facility] Stop: 09/01/21 20:59 Last Admin: 08/06/21 10:11 Dose: 100 mg Documented by: Enoxaparin Sodium (Enoxaparin Inj 40 Mg/0.4 Ml Syr) 40 mg SQ Q24H [facility] Stop: 08/27/21 20:59 Last Admin: 08/05/21 22:17 Dose: 40 mg Documented by: Fluticasone Propionate (Fluticasone Propionate Na Spr 16 Gm Btl) 2 sprays AKANKSHA DAILY PRN PRN Reason: Nasal Congestion Stop: 08/27/21 16:02 Guaifenesin (Guaifenesin 600 Mg Tabcr) 600 mg PO Q12 [facility] Stop: 09/03/21 20:59 Last Admin: 08/06/21 10:11 Dose: 600 mg Documented by: Guaifenesin/Codeine Phosphate (Guaifenesin/Codeine 100mg/10mg 5ml Udc) 5 ml PO Q6H PRN PRN Reason: Cough Stop: 08/27/21 16:01 Last Admin: 08/06/21 09:58 Dose: 5 ml Documented by: Doxycycline Hyclate 100 mg/ (Dextrose) 110 mls @ 50 mls/hr IV Q12H [facility] Stop: 08/09/21 10:59 Last Infusion: 08/06/21 13:18 Dose: Infused Documented by: Pantoprazole Sodium 40 mg/ (Syringe) 10 mls @ 5 mls/min IV BID [facility] Stop: 09/03/21 20:59 Last Admin: 08/06/21 09:20 Dose: 5 mls/min Documented by: Dexamethasone 10 mg/ Syringe 2.5 mls @ 1 mls/min IV Q24H [facility] Stop: 08/13/21 09:03 Dexamethasone 20 mg/ Dextrose 30 mls @ 0.833 mls/min IV DAILY [facility] Stop: 08/07/21 09:37 Last Infusion: 08/06/21 10:00 Dose: Infused Documented by: Lorazepam (Ativan) 0.25 mg in 0.5 mls @ 0.5 mls/min IV Q6H PRN PRN Reason: Agitation Stop: 09/05/21 10:02 Lactobacillus Acidophilus (Lactobacillus Acidophilus 1 Gm Pack) 1 gm PO BID [facility] Stop: 08/27/21 20:59 Last Admin: 08/06/21 10:11 Dose: 1 gm Documented by: Metoprolol Succinate (Metoprolol Succ 50mg Ext Rel Tab) 50 mg PO DAILY [facility] Stop: 08/28/21 08:59 Last Admin: 08/06/21 10:10 Dose: 50 mg Documented by: Miscellaneous (Loteprednol Etabonate Order Awaiting Action) 1 ea N/A QS [facility] Stop: 09/04/21 00:00 Last Admin: 08/06/21 07:15 Dose: Not Given Documented by: Montelukast Sodium (Montelukast Sodium 10 Mg Tablet) 10 mg PO DAILY [facility] Stop: 08/28/21 08:59 Last Admin: 08/06/21 10:11 Dose: 10 mg Documented by: Multivitamins (Multivitamin Tab) 1 tab PO DAILY [facility] Stop: 08/28/21 08:59 Last Admin: 08/06/21 10:10 Dose: 1 tab Documented by: Polyethylene Glycol (Polyethylene (Miralax) 17 Gm Pack) 17 gm PO DAILY PRN PRN Reason: Constipation Stop: 08/27/21 22:30 Umeclidinium Reyno (Umeclidinium Reyno 62.5mcg/Blister 7 Puffs/Inhaler) 1 puffs INH DAILY [facility] Stop: 08/28/21 08:59 Last Admin: 08/06/21 10:11 Dose: 1 puffs Documented by:
[2021-08-06] MEDS: ENOXAPARIN INJ 40 MG/0.4 ML SYR SQ SCH (21:39)
[2021-08-07] MEDS ORDERED: RAPID SEQUENCE INDUCTION BAG ONE (01:14)
[2021-08-07] MEDS ORDERED: ROCURONIUM BROMIDE 10 MG/ML 5 ML VIAL IV PRN (01:40)
[2021-08-07] MEDS ORDERED: VECURONIUM BROMIDE 10 MG VIAL IV ONE ×2 (01:40→16:57)
[2021-08-07] MEDS ORDERED: THIAMINE HCL 200 MG in SODIUM CHLORIDE 0.9% 50 ML IV STA (01:40)
[2021-08-07] MEDS ORDERED: PROPOFOL BOLUS FROM BAG IV PRN (01:41)
[2021-08-07] MEDS ORDERED: STAT IV Infusion **Titration per Protocol STA ×3 (01:41→08:02)
[2021-08-07] MEDS ORDERED: fentaNYL citrate 2,500 MCG/250 ML BAG IV SCH (01:45)
[2021-08-07] MEDS ORDERED: ADENOSINE IV SOLN 3 MG/ML 2 ML VIAL IV ONE (02:31)
--- NOTE | 2021-08-07 03:24 | Critical Care Consultation ---
Date of Consultation August 07, 2021 Assessment & Plan (1) Pneumonia due to 2019-nCoV: (2) Acute respiratory failure with hypoxia: (3) COPD (chronic obstructive pulmonary disease): (4) Shortness of breath: Reason Critically Ill: Acute hypoxic respiratory failure secondary to COVID-19 pneumonia PLAN: Neuro: Sedation: Propofol Analgesia: Fentanyl Neuromuscular blockade: Intermittent rocuronium Resp: CT chest 08/02/2021 personally reviewed: Centrilobular paraseptal emphysema appreciated bilaterally Diffuse groundglass opacities appreciated upper and lower lobes. Minimal lower lobe dense consolidative process appreciated bilaterally, questionable rounded atelectasis There is possibility of interstitial thickening bilateral basal surfaces. It is difficult to ascertain given the patient has significant opacities No central pulmonary embolism No significant mediastinal lymphadenopathy --Acute hypoxic respiratory failure Secondary to multilobar COVID-19 pneumonia COVID-19 PCR positive 07/25/2021, repeat + 07/28/2021 Patient is past 72 hours in the hospital to be considered for monoclonal antibodies Intubation mechanical ventilation: 08/07/2021 ARDSnet guidelines high PEEP low FiO2 if possible Recommend patient to be kept euvolemic to negative balance --COPD with emphysema --Questionable ILD No previous CAT scans to compare other than on 07/28/2021 Outpatient work-up CV: Hypertension - Continue metoprolol Fluids/Renal: Maintain net negative balance ID: Finish course of antibiotics GI/Nutrition: Trickle tube feeds Heme: DVT prophylaxis: Lovenox 40 mg Endocrine: ICU hyperglycemia protocol Continue steroids Vascular access: Left subclavian placed 08/07/2021; left radial A-line placed 08/07/2021 Code Status: Full code Disposition: ICU Supervising Physician Co-Signing Physician Notes I have personally spent 65 minutes of critical care time in the direct ma nagement of this patient. This is a life/limb threatening event. This includes time spent evaluating patient, direct bedside care, chart review, placing orders, interpretation of diagnostic studies, discussion with consultants, patient, and/or family members regarding treatment decisions, as well as other required patient management activities. This time is exclusive of all separately billable procedures, and teaching time and separate from and in addition to any other critical care service time. History of Present Illness Reason for Consultation: Acute hypoxic respiratory failure secondary to Covid pneumonia Attending Physician: Alida Oscar MD History of Present Illness Patient is a 66-year-old male who has been admitted for several days with Covid pneumonia and worsening acute hypoxic respiratory failure. The patient was previously DNR/DNI however his condition deteriorated and he decided that he would like to proceed with therapeutic intubation mechanical ventilation. He requests that his be his surrogate medical decision maker. His Covid test was positive on 07/25. Had a CTA with no evidence of PE. He was started on dexamethasone, received remdesivir. History of hypertension, COPD on Ellipta and albuterol. Allergies Allergy/AdvReac Type Severity Reaction Status Date / Time ABRAM Inhibitors Allergy Intermediate elevates k+ Verified 07/28/21 13:51 Home Medications Medication Instructions Recorded Confirmed Type chlorthalidone 25 mg tablet 25 mg PO DAILY 03/17/19 07/28/21 History metoprolol succinate 50 mg capsule 50 mg PO DAILY 03/17/19 07/28/21 History sprinkle, ext. release 24 hr multivitamin 1 tab PO DAILY 03/17/19 07/28/21 History omeprazole 20 mg tablet,delayed 20 mg PO DAILY 03/17/19 07/28/21 History release fluticasone propionate 50 2 spray INTRANASAL DAILY PRN 01/07/20 07/28/21 History mcg/actuation nasal spray,suspension montelukast 10 mg tablet 10 mg PO DAILY 01/07/20 07/28/21 History umeclidinium 62.5 mcg/actuation 1 inh INHALATION DAILY 01/07/20 07/28/21 History blister powder for inhalation (Incruse Ellipta) Lactobacillus acidoph-L.bulgaricus 1 tab PO BID #30 tab 01/10/20 07/28/21 Rx 1 million cell chewable tablet (Lactinex) amoxicillin 875 mg tablet 875 mg PO BID 07/28/21 07/28/21 History aspirin 81 mg tablet,delayed 81 mg PO DAILY 07/28/21 07/28/21 History release acyclovir 800 mg tablet 800 mg PO BID 08/04/21 08/04/21 History loteprednol etabonate 0.5 % eye 1 drp OPHTHALMIC (EYE) BID 08/04/21 08/04/21 History drops,suspension Patient History Medical History COPD (chronic obstructive pulmonary disease) GERD (gastroesophageal reflux disease) Hypertension LBBB (left bundle branch block) Prediabetes Surgical History Hx of colonoscopy No pertinent past surgical history Family History Other Cancer Diabetes Hypertension Social History Smoking Status: Former smoker Second Hand Exposure: Yes; Do You Dip or Chew Tobacco: No; Hx Alcohol Use: Yes Alcohol type: beer Alcohol type Comment: 2-3 beers daily but none for past week Hx Substance Use: No Preferred Language: Upper Sorbian Communication Ability: Effective Scrub Nurse Required: No Beliefs That Will Affect Care: None Current Living Situation: Spouse Other Information That Helps Us Care for You: No Feels Safe at Home: Yes Safety Concerns: Feels Safe At This Time Assistive Devices: Oxygen - Continuous Review of Systems Review of Systems: Review of systems limited to acuity of disease process. Severe exertional dyspnea Physical Exam Physical Exam: General: Alert. nontoxic. Skin: Warm, dry, Head: Atraumatic Ears, nose, mouth and throat: airway patent Cardiovascular: Normal peripheral perfusion, tachycardia Respiratory: Moderate respiratory distress speaks in 2-3 word sentences Gastrointestinal: Non distended Musculoskeletal: No deformity Results & Data Results & Data ([facility]) Vital Signs (Past 12 Hours) Vital Signs Temp Pulse Pulse Pulse Resp BP Pulse Ox 08/07/21 01:58 101 H 18 85 L 08/06/21 23:28 98 H 24 90 08/06/21 23:19 95 H 08/06/21 21:36 36.6 C 95 H 28 H 147/78 H 83 L 08/06/21 19:10 98 H 22 89 L 08/06/21 16:00 101 H Laboratory Results 08/06/21 Range/Units 06:32 Sodium 133 L (136-145) mmol/L Potassium 4.0 D (3.5-5.1) mmol/L Chloride 100 (98-107) mmol/L Carbon Dioxide 28 (21-32) mmol/L Anion Gap 5.0 (3-11) BUN 27 H (7-18) mg/dl Creatinine 0.66 (0.6-1.4) mg/dl Est Cr Clr Drug Dosing 105.7 ml/min Est GFR ( Amer) 118.4 ml/min Est GFR (Non-Af Amer) 102.2 ml/min BUN/Creatinine Ratio 40.9 H (10-20) Glucose 88 (70-99) mg/dl Calcium 9.1 (8.5-10.1) mg/dl Phosphorus 3.2 (2.5-4.9) mg/dl Magnesium 2.1 (1.8-2.4) mg/dl Diagnostic Findings Chest x-ray reviewed, diffuse bilateral patchy infiltrates, no pneumothorax, endotracheal tube, CVC, orogastric tube in place Coding Level of Care Code Critical Care 1st 30-74 mins Diagnoses Pneumonia due to 2019-nCoV U07.1; J12.82 Acute respiratory failure with hypoxia J96.01 COPD (chronic obstructive pulmonary disease) J44.9 Shortness of breath R06.02
[2021-08-07] MEDS: propofoL 1,000 MG/100 ML VIAL IV SCH ×2 (03:30→11:47)
[2021-08-07] MEDS ORDERED: PEPTAMEN INTENSE VHP 1.0 CAL 1,000 ML BAG OG SCH (03:30)
--- NOTE | 2021-08-07 03:31 | Procedure Note ---
Procedure Note Date of Service August 07, 2021 Note Procedure Date: Noted above Procedure: Endotracheal intubation Pre-procedure Diagnosis: Acute hypoxic respiratory failure secondary to COVID-19 pneumonia Post-procedure Diagnosis: same as above Prior to Procedure: Informed Consent: emergent Attending Staff: Amy Alvarez DO The identity of the patient was confirmed and a bedside time out was performed. Description of Procedure: Patient was evaluated and required intubation for impending respiratory failure. The patient was prepared in the usual fashion. A video laryngoscope was used. A 8 mm inner diameter endotrachial tube was placed endotracheally to 23 cm at the teeth. A grade 1 view was obtained. The endotracheal tube was noted to pass through the vocal cords. Chest rise was bilateral. Bilateral breath sounds were heard without air sounds in the abdomen. Mist was noted in the endotracheal tube. End-tidal CO2 measurement was positive. Chest x-ray shows proper endotracheal tube placement. Complications: None Findings: Not applicable Specimens: Not applicable Estimated blood loss: Zero Coding CPT Codes Resuscitation - Resuscitation: 52312 Endotracheal Intubation, emergency ([id number]) [facility] Procedure Codes (Charges) Resuscitation Resuscitation: [id number] Endotracheal Intubation, emergency
--- NOTE | 2021-08-07 03:32 | Procedure Note ---
Procedure Note Date of Service August 07, 2021 Note Procedure date: Noted above Procedure: Central venous access Pre-procedure indication: Need for vasoactive medication administration Post-procedure Diagnosis: same as above Prior to Procedure: Informed Consent: The risks, benefits, indications, potential complications, and alternatives were explained to the patient and verbal informed consent obtained. Attending Staff: Amy Alvarez DO Resident/APC: Not applicable Skin Prep: Chlorhexidine Anesthesia: 4 mL 1% lidocaine without epinephrine The identity of the patient was confirmed and a bedside time out was performed. Description of Procedure: After sterile prep and sterile drape utilizing standard sterile technique the superficial skin of the left subclavian area was anesthetized. The target vessel was identified and entered with an 18-gauge needle. Dark venous blood return was noted. A guidewire was inserted through the needle and into the vessel. The needle was withdrawn and a skin ange was made. A tissue dilator was advanced via Seldinger technique and removed. A triple lumen catheter was inserted via Seldinger technique and the guidewire removed. All ports catarino and flushed easily. A Biopatch was placed, and the catheter was secured via silk suture. A sterile dressing was then applied. Complications: None Estimated blood loss: Trace Patient tolerated the procedure well. Coding CPT Codes Tubes, Drains, and Vasc Access - Tubes, Drains, and Vasc Access: [id number] Insertion Of Non-tunneled Catheter Age 7 Yrs> ([id number]) [facility] Procedure Codes (Charges) Tubes, Drains, and Vasc Access Procedure 1: Tubes, Drains, and Vasc Access: [id number] Insertion Of Non-tunneled Catheter Age 7 Yrs>
--- NOTE | 2021-08-07 03:33 | Procedure Note ---
Procedure Note Date of Service August 07, 2021 Note Procedure date: Noted above Procedure: Radial artery cannulation Pre-procedure Diagnosis: Need for invasive monitoring Post-procedure Diagnosis: same as above Prior to Procedure: Informed Consent: The risks, benefits, indications, potential complications, and alternatives were explained to the patient and verbal informed consent obtained. Attending Staff: Amy Alvarez DO Skin Prep: Chlorhexidine Anesthesia: 3 mL 1% lidocaine without epinephrine The identity of the patient was confirmed and a bedside time out was performed. Description of Procedure: After sterile prep and sterile drape utilizing standard sterile technique the superficial skin of the left radial artery was anesthetized. The target artery was identified via dynamic ultrasound guidance and entered with a 20-gauge arrow Angiocath. Pulsatile bright red blood return was noted. Via modified Seldinger technique the self-contained guidewire was advanced and the Angiocath advanced over the guidewire. The guidewire was removed and brisk arterial blood return was noted. The pressure monitor was connected, and the arterial line was secured via silk suture. A sterile dressing was then applied. Complications: None Estimated blood loss: Trace Patient tolerated the procedure well. Coding CPT Codes Tubes, Drains, and Vasc Access - Tubes, Drains, and Vasc Access: [id number] Insertion Catheter, Artery ([id number]) [facility] Procedure Codes (Charges) Tubes, Drains, and Vasc Access Procedure 1: Tubes, Drains, and Vasc Access: [id number] Insertion Catheter, Artery
[2021-08-07] MEDS ORDERED: AMIODARONE 150MG / 100ML D5W IV ONE (03:47)
[2021-08-07] MEDS ORDERED: AMIODARONE 360MG / 200ML D5W IV ONE (03:47)
--- NOTE | 2021-08-07 03:52 | Communication Note ---
Date of Service: August 07, 2021 Called by nursing staff patient desaturated into the low 60s, we returned the patient to the supine position. I have attempted to optimize the ventilator at tidal volume of 375 respiratory rate of 24 PEEP of 16 and FiO2 of 100%. I am concerned of a grim prognosis I have advised nursing staff to contact the and update her of the dire situation. Coding Level of Care Code None
[2021-08-07] MEDS ORDERED: AMIODARONE / D5W 150 MG/100 ML BAG IV STA (03:55)
[2021-08-07] MEDS ORDERED: 0.2 MICRON FILTER SET 1 EA IV ONE (03:55)
[2021-08-07] MEDS ORDERED: AMIODARONE IV BOLUS & DRIP IV STA (03:55)
[2021-08-07] MEDS ORDERED: AMIODARONE / D5W 360 MG/200 ML BAG IV ONE (04:06)
[2021-08-07 05:03] LABS: iSTAT Art Bld Gas pCO2 Correct 102 mmHg (35-46); iSTAT Art Bld Gas pH Corrected 7.054 (7.35-7.45); iSTAT Arterial Blood Gas HCO3 28 meg/L (19-24); iSTAT Arterial Blood Gas pCO2 100 mmHg (35-46); iSTAT Arterial Blood Gas pH 7.06 (7.35-7.45); iSTAT Arterial Blood Gas pO2 56 mmHg (80-95); iSTAT Arterial Blood Gas pO2 C 58; iSTAT Carbon Dioxide 31 mmol/L (24-31); iSTAT FiO2 100 %; iSTAT Hematocrit 48 % (42-52); iSTAT Hemoglobin 16.3 g/dl (14.0-18.0); iSTAT Potassium 4.4 mmol/L (3.3-5.0); iSTAT Site Art Line; iSTAT Sodium 134 mmol/L (135-144)
[2021-08-07] MEDS ORDERED: NOREPINEPHRINE/D5W 8 MG/508 ML BAG IV SCH (08:15)
[2021-08-07] MEDS ORDERED: VASOPRESSIN 20 UNITS in 0.9 % SODIUM CHLORIDE 100 ML IV SCH (08:15)
--- NOTE | 2021-08-07 08:30 | XRay Report ---
XR chest 1V portable CLINICAL HISTORY: intubation COMPARISON STUDY: Chest CT August 02, 2021. Chest radiograph August 04, 2021. FINDINGS: Tip of endotracheal tube is 4.4 cm above the ashly. Tip of nasogastric tube is within the body of the stomach. There is no pneumothorax placement of a left subclavian central line. Tip is wit hin the SVC. No pleural effusion is noted. Emphysema is present. Extensive bilateral airspace opaciti es have progressed. IMPRESSION: 1. Satisfactory positioning of lines and tubes. No pneumothorax. 2. Progression of extensive bilateral airspace opacities consistent with viral pneumonia. ACT 112: Negative or not required by law. Electronically signed by: Mathew Alvarado M.D. 08/07/2021 8:28 AM
[2021-08-07] MEDS: dexAMETHasone 20 MG in DEXTROSE 5% 25 ML IV SCH (08:50)
[2021-08-07] MEDS: DOCUSATE SODIUM 100 MG CAP PO SCH (08:51)
[2021-08-07] MEDS: PANTOprazole 40 MG in SYRINGE 0 ML IV SCH (08:51)
[2021-08-07] MEDS ORDERED: ASPIRIN 81 MG CHEW NG SCH (09:00)
[2021-08-07] MEDS: METOPROLOL SUCC 50MG EXT REL TAB PO SCH (09:16)
[2021-08-07] MEDS: ACYCLOVIR 400 MG TAB PO SCH (09:34)
[2021-08-07] MEDS: MONTELUKAST SODIUM 10 MG TABLET PO SCH (09:34)
[2021-08-07] MEDS: MULTIVITAMIN TAB PO SCH (09:34)
[2021-08-07 09:56] LABS: Hematocrit (blood only) 41.3 % (42-52); Hemoglobin 13.6 g/dL (14.0-18.0); Mean Corpuscular Hemoglobin 32.2 pg (25-34); Mean Corpuscular Hgb Conc 32.9 g/dL (32-36); Mean Corpuscular Volume 97.6 fL (80-100); Mean Platelet Volume 10.1 fL (7.4-10.4); Platelet Count 710 K/uL (130-400); RDW Coefficient of Variation 13.1 % (11.5-14.5); RDW Standard Deviation 46.7 fL (36.4-46.3); Red Blood Count 4.23 M/uL (4.7-6.1); White Blood Count 34.17 K/uL (4.8-10.8)
[2021-08-07] MEDS ORDERED: AMIODARONE / D5W 360 MG/200 ML BAG IV SCH (10:00)
[2021-08-07 10:12] LABS: ALC (manual) 0.62 K/uL (1.2-3.4); ANC (manual) 33.25 K/uL (1.4-6.5); Echinocytes 1+; Lymphocytes # (manual) 0.62 K/uL (1.2-3.4); Lymphocytes % (manual) 1.8 %; Monocytes # (manual) 0.31 K/uL (0.11-0.59); Monocytes % (manual) 0.9 %; Neutrophils # (manual) 33.25 K/uL (1.4-6.5); Neutrophils % (manual) 97.3 %
[2021-08-07 10:18] LABS: BUN Creatinine Ratio 30.8 (10-20); Creatinine Clr Calc Pharmacy 62.3 ml/min; Magnesium 2.3 mg/dl (1.8-2.4); Potassium 4.4 mmol/L (3.5-5.1)
[2021-08-07 10:24] LABS: Phosphorus 7.8 mg/dl (2.5-4.9)
[2021-08-07 12:19] LABS: iSTAT Art Bld Gas pCO2 Correct 64 mmHg (35-46); iSTAT Art Bld Gas pH Corrected 7.225 (7.35-7.45); iSTAT Arterial Blood Gas HCO3 27 meg/L (19-24); iSTAT Arterial Blood Gas pCO2 66 mmHg (35-46); iSTAT Arterial Blood Gas pH 7.21 (7.35-7.45); iSTAT Arterial Blood Gas pO2 47 mmHg (80-95); iSTAT Arterial Blood Gas pO2 C 44; iSTAT Carbon Dioxide 29 mmol/L (24-31); iSTAT FiO2 100 %; iSTAT Hematocrit 45 % (42-52); iSTAT Hemoglobin 15.3 g/dl (14.0-18.0); iSTAT Potassium 5.1 mmol/L (3.3-5.0); iSTAT Site Art Line; iSTAT Sodium 130 mmol/L (135-144)
--- NOTE | 2021-08-07 13:21 | Critical Care Progress Note ---
Date of Service August 07, 2021 Assessment & Plan (1) Pneumonia due to 2019-nCoV: (2) Acute respiratory failure with hypoxia: (3) COPD (chronic obstructive pulmonary disease): (4) Shortness of breath: Plan: CT chest 08/02/2021 personally reviewed: Centrilobular paraseptal emphysema appreciated bilaterally Diffuse groundglass opacities appreciated upper and lower lobes. Minimal lower lobe dense consolidative process appreciated bilaterally, questionable rounded atelectasis There is possibility of interstitial thickening bilateral basal surfaces. It is difficult to ascertain given the patient has significant opacities No central pulmonary embolism No significant mediastinal lymphadenopathy --VDRF secondary to acute hypoxic respiratory failure Secondary to multilobar COVID-19 pneumonia On high-dose DEXA ARDS protocol COVID-19 PCR positive 07/25/2021, repeat + 07/28/2021 CRP 7.61 Procalcitonin < 0.05 Patient intubated early on 08/07/2021 --COPD with emphysema Continue with Incruse for the time being --Questionable ILD No previous CAT scans to compare other than on 07/28/2021 Outpatient work-up --DNR/DNI I reconfirmed when I talked with him 08/05/2021 Hypertension - Continue metoprolol Fluids/Renal: Maintain net negative balance ID: Finish course of antibiotics GI/Nutrition: On Hold Heme: DVT prophylaxis: Lovenox 40 mg Endocrine: ICU hyperglycemia protocol Continue steroids Plan: Patient unfortunately is not doing well He is having agonal breathing. He is saturation on PEEP of 16 and 100% FiO2 are in the mid 70s. I called the patient's . She was made aware about the current condition, she understands and would like the patient to be made comfort measures I have personally spent additional 45 minutes of critical care time in the direct management of this patient. This is a life/limb threatening event. This includes time spent evaluating patient, direct bedside care, chart review, placing orders, interpretation of diagnostic studies, discussion with consultants, patient, and family members, as well as other required patient management activities. This time is exclusive of all separately billable procedures, and teaching time and separate from and in addition to any other critical care service time. Please note the above document was generated using voice recognition software. It may contain grammatical, syntax or spelling errors. Admission and Anticipated Discharge Date Admission Date: July 28, 2021 Subjective Patient seen and examined at bedside. Unfortunately he is maxed out on the vent support but still breathing diagonally His saturation are in the low 70s to high 60s. He is on Levophed as well as vasopressin On propofol for sedation Review of Systems Review of Systems: Unobtainable due to endotracheal tube Physical Exam Physical Exam: Constitutional: No acute distress HEENT: PERRLA, + ETT Respiratory system: Decreased air entry bilaterally, no wheeze, no rhonchi, Positive crackles bilaterally CVS: S1-S2 positive, no murmurs or gallops Abdomen: Soft, nontender, nondistended, positive bowel sounds x4 Extremities: +2 pulses bilaterally radialis/ dorsalis pedis, no cyanosis, no edema Neuro: Agonal breathing Psych: unable to access G/U: +ve Nleson Skin: no rashes, warm and dry Lymphatic: no cervical or axillary lymphadenopathy Results & Data Results & Data ([facility]) Vital Signs (Past 12 Hours) Vital Signs Temp Pulse Pulse Resp BP Pulse Ox 08/07/21 13:00 120 H 30 H 93/55 L 80 L 08/07/21 12:28 109 H 97/60 L 08/07/21 12:03 28 H 08/07/21 12:00 118 H 30 H 91/59 L 81 L 08/07/21 11:00 36.2 C L 111 H 34 H 91/69 L 80 L 08/07/21 10:55 114 H 35 H 78 L 08/07/21 10:46 110 H 103/66 08/07/21 10:14 36.9 C 130 H 30 H 93/59 L 76 L 08/07/21 09:32 80/55 L 08/07/21 09:18 37.1 C 116 H 30 H 98/48 L 66 L 08/07/21 08:49 122 H 89/47 L 08/07/21 08:19 114 H 63/45 L 08/07/21 08:00 127 H 08/07/21 07:58 122 H 33 H 74 L 08/07/21 07:00 37.0 C 125 H 32 H 76/38 L 74 L 08/07/21 01:58 101 H 18 85 L Laboratory Results 08/07/21 09:29 08/07/21 09:29 Coding Level of Care Code Critical Care ea addt'l 30 min Diagnoses Pneumonia due to 2019-nCoV U07.1; J12.82 Acute respiratory failure with hypoxia J96.01 COPD (chronic obstructive pulmonary disease) J44.9 Shortness of breath R06.02 Time Spent (min) 45
[2021-08-07] MEDS ORDERED: ONDANSETRON INJ 2 MG/ML 2 ML VIAL IV PRN (14:27)
[2021-08-07] MEDS ORDERED: MoRPHine SULFATE 2 MG/ML CARP IV PRN (14:27)
[2021-08-07] MEDS ORDERED: ONDANSETRON 4 MG OD TAB SL PRN (14:27)
--- NOTE | 2021-08-07 15:23 | Communication Note ---
Date of Service: August 07, 2021 Pronouncement: On examination: Patient is totally unresponsive with widely dilated pupil, not reacting to light He is totally unresponsive,no breathing No audible heart sounds. He was pronounced on 08/07/2021 head 1505 hrs. The was notified The causes of where: Pneumonia due to COVID-19 virus COVID-[address] Chapincito Oscar
--- NOTE | 2021-08-07 16:07 | Hospitalist Progress Note ---
Date of Service August 07, 2021 Assessment & Plan (1) Acute respiratory failure with hypoxia: (2) Pneumonia due to COVID-19 virus: Plan: Patient is a 66yr male with of PMH of COPD, LBBB, HTN, GERD and other medical problems listed below who presents with ongoing fever, cough and SOB. COVID-19 pneumonia Acute respiratory failure with hypoxia complicated by COPD -CTA:No evidence of pulmonary embolism. Groundglass and reticular opacities compatible with Covid pneumonia. Lymphadenopathy in the mediastinum and lower cervical stations, likely reactive. -Outpatient positive covid test in 07/25 Normal Procalcitonin Completed Remdesivir course Lasix as needed Currently on high flow oxygen/BiPAP Appreciate pulmonology input and recommendation Increase dexamethasone to 20 mg daily Also started on doxycycline 100 mg twice a day Encourage to prone He has been refusing intubation and remains DNR/DNI He has not been getting any better and saturation is maintained through BiPAP Prognosis remains extremely poor He was intubated last night as he wanted to have it Condition remains critical this morning and discussed with the about comfort care down the line 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 (7) GERD (gastroesophageal reflux disease): Plan: Continue PPI DVT Px: SQ Lovenox Code status: DNR/DNI Prognosis remains poor Discussed with the for possible comfort care as the condition remains critical and there is no hope of improvement Admission and Anticipated Discharge Date Admission Date: July 28, 2021 Subjective 08/05/2021 The patient was seen and examined in telemetry unit and in the Covid room He has been feeling any better and requiring 6 L at 100% FiO2 to maintain saturation around 89% He refused to be intubated and remains DNR/DNI Denies any other symptoms except shortness of breath 08/06/2021 The patient was seen and examined in telemetry unit and in the Covid room He has not been feeling any better and has had a very rough night yesterday Has been requiring BiPAP to maintain saturation He does not want to be intubated 08/07/2021 The patient was seen and examined in telemetry unit and in the Covid room this morning He was intubated last night as he wanted to have intubation which he was refusing so far Condition remains critical Review of Systems Review of Systems: Unobtainable due to endotracheal tube Physical Exam Physical Exam: Remains sedated on mechanical ventilator Constitutional: well developed, well nourished and + ill appearing Eyes: PERRL, conjunctivae normal, anicteric sclerae ENMT: external ear and nose normal, oropharynx normal Neck: trachea midline, no thyromegaly Respiratory: no respiratory distress Auscultation: + diminished lung sounds; no crackles Cardiovascular: Rate/Rhythm: regular rate, regular rhythm and + tachycardic Heart Sounds: normal S1 and normal S2; no murmur Extremities: no edema Gastrointestinal (Abdomen): Inspection/Auscultation: normal bowel sounds; abdomen not distended Percussion/Palpation: abdomen soft; abdomen nontender Neurologic: Remains sedated Lymphatic: no cervical or axillary lymphadenopathy Results & Data Results & Data ([facility]) Vital Signs (Past 12 Hours) Vital Signs Temp Pulse Pulse Resp BP Pulse Ox 08/07/21 14:22 106 H 93/62 L 08/07/21 13:00 120 H 30 H 93/55 L 80 L 08/07/21 12:28 109 H 97/60 L 08/07/21 12:03 28 H 08/07/21 12:00 118 H 30 H 91/59 L 81 L 08/07/21 11:00 36.2 C L 111 H 34 H 91/69 L 80 L 08/07/21 10:55 114 H 35 H 78 L 08/07/21 10:46 110 H 103/66 08/07/21 10:14 36.9 C 130 H 30 H 93/59 L 76 L 08/07/21 09:32 80/55 L 08/07/21 09:18 37.1 C 116 H 30 H 98/48 L 66 L 08/07/21 08:49 122 H 89/47 L 08/07/21 08:19 114 H 63/45 L 08/07/21 08:00 127 H 12/24/21 07:58 122 H 33 H 74 L 08/07/21 07:00 37.0 C 125 H 32 H 76/38 L 74 L Laboratory Results Short CBC 08/07/21 08/07/21 Range/Units 05:53 09:29 WBC Cancelled 34.17 H* Hgb Cancelled 13.6 L Hct Cancelled 41.3 L Plt Count Cancelled 710 H BMP 08/07/21 09:29 Sodium 135 L Potassium 4.4 Chloride 103 Carbon Dioxide 23 BUN 34 H Creatinine 1.12 D Glucose 187 H Calcium 8.0 L Medications Administered Current Inpatient Medications Acetaminophen (Acetaminophen 325 Mg Tab) 650 mg PO Q4H PRN PRN Reason: Pain or Fever Stop: 08/27/21 22:30 Last Admin: 08/03/21 05:09 Dose: 650 mg Documented by: Acyclovir (Acyclovir 400 Mg Tab) 800 mg PO BID [facility] Stop: 09/03/21 20:59 Last Admin: 08/07/21 09:34 Dose: 800 mg Documented by: Albuterol (Albut/Ipratrop 3mg/0.5mg Neb 3 Ml Vial) 3 ml NEB QIDR PRN; Protocol PRN Reason: Shortness Of Breath Or Wheezing Stop: 09/03/21 08:29 Last Admin: 08/06/21 04:42 Dose: 3 ml Documented by: Aspirin (Aspirin 81 Mg Chew) 81 mg NG QAM [place] Stop: 09/06/21 08:59 Last Admin: 08/07/21 09:34 Dose: 81 mg Documented by: Docusate Sodium (Docusate Sodium Syrup 100 Mg/10 Ml Udc) 100 mg NG BID [facility] Stop: 09/06/21 20:59 Enoxaparin Sodium (Enoxaparin Inj 40 Mg/0.4 Ml Syr) 40 mg SQ Q24H [place] Stop: 08/27/21 20:59 Last Admin: 08/06/21 21:39 Dose: 40 mg Documented by: Fentanyl Citrate (Fentanyl Bolus From Bag) 50 mcg IV Q60M PRN PRN Reason: Pain or Agitation Stop: 08/21/21 01:40 Pantoprazole Sodium 40 mg/ (Syringe) 10 mls @ 5 mls/min IV BID [facility] Stop: 09/03/21 20:59 Last Admin: 08/07/21 08:51 Dose: 5 mls/min Documented by: Dexamethasone 10 mg/ Syringe 2.5 mls @ 1 mls/min IV Q24H [facility] Stop: 08/13/21 09:03 Propofol (Diprivan) 1,000 mg in 100 mls @ 0 mls/hr IV .Q0M [place]; Protocol Stop: 08/10/21 01:44 Last Titration: 08/07/21 14:46 Dose: 0 mcg/kg/min, 0 mls/hr Documented by: Fentanyl Citrate (Fentanyl Citrate) 2,500 mcg in 250 mls @ 0 mls/hr IV .Q0M [place]; Protocol Stop: 08/21/21 01:44 Last Titration: 08/07/21 15:05 Dose: 0 mcg/hr, 0 mls/hr Documented by: Amiodarone HCl/Dextrose (Nexterone / D5w) 360 mg in 200 mls @ 16.667 mls/hr IV .Q12H [facility] Stop: 09/06/21 09:59 Last Infusion: 08/07/21 14:46 Dose: Infused Documented by: Norepinephrine Bitartrate (Levophed/D5w) 8 mg in 508 mls @ 28.08 mls/hr IV .Q18H6M [facility]; Protocol Stop: 09/06/21 08:14 Last Titration: 08/07/21 14:46 Dose: 0 mcg/kg/min, 0 mls/hr Documented by: Vasopressin 20 units/ Sodium (Chloride) 101 mls @ 0 mls/hr IV .Q0M [facility] Stop: 09/06/21 08:14 Last Infusion: 08/07/21 14:46 Dose: 0 unit/min, 0 mls/hr Documented by: Dexamethasone 20 mg/ Dextrose 30 mls @ 0.833 mls/min IV DAILY [place] Stop: 08/08/21 09:35 Metoprolol Succinate (Metoprolol Succ 50mg Ext Rel Tab) 50 mg PO DAILY [facility] Stop: 08/28/21 08:59 Last Admin: 08/07/21 09:16 Dose: Not Given Documented by: Miscellaneous (Loteprednol Etabonate Order Awaiting Action) 1 ea N/A QS [facility] Stop: 09/04/21 00:00 Last Admin: 08/07/21 08:20 Dose: Not Given Documented by: Morphine Sulfate (Morphine Sulfate 2 Mg/Ml Carp) 2 mg IV Q4H PRN PRN Reason: Pain or Respiratory Distress Stop: 08/21/21 14:26 Multivitamins/Minerals (Multi Vit W/Minerals Liquid 15 Ml Udp) 15 ml PO DAILY [place] Stop: 09/07/21 08:59 Ondansetron HCl (Ondansetron Inj 2 Mg/Ml 2 Ml Vial) 4 mg IV Q4H PRN PRN Reason: Nausea &/or Vomiting Stop: 09/06/21 14:26 Ondansetron HCl (Ondansetron 4 Mg Od Tab) 4 mg SL Q4H PRN PRN Reason: Nausea &/or Vomiting Stop: 09/06/21 14:26 Polyethylene Glycol (Polyethylene (Miralax) 17 Gm Pack) 17 gm PO DAILY PRN PRN Reason: Constipation Stop: 08/27/21 22:30 Propofol (Propofol Bolus From Bag) 20 mg IV Q5M PRN PRN Reason: Sedation Stop: 08/10/21 01:40 Rocuronium [place] (Rocuronium [place] 10 Mg/Ml 5 Ml Vial) 66 mg 1 mg/kg (66 mg) IV Q1H PRN PRN Reason: See Label Comments Stop: 09/06/21 01:39
[2021-08-07] MEDS ORDERED: ROCURONIUM BROMIDE 10 MG/ML 5 ML VIAL IV ONE (16:57)
[2021-08-07] MEDS ORDERED: fentaNYL citrate 100 MCG/2 ML VIAL IV ONE (16:57)
[2021-08-07] MEDS ORDERED: ETOMIDATE 2 MG/ML 20 ML VIAL IV ONE (16:57)
[2021-08-07] MEDS ORDERED: DOCUSATE SODIUM SYRUP 100 MG/10 ML UDC NG SCH (21:00)
--- NOTE | 2021-08-08 08:05 | Discharge Summary ---
Date of Service August 08, 2021 Admission HPI Per Admitting Provider This is a 66yo M with of PMH of COPD, LBBB, HTN, GERD and other medical problems listed below who presents with ongoing fever, cough and SOB. Outpatient positive covid test in 07/25. Symptoms started 7 days ago with body aches, lethargic, fever (tmax 103), chills, SOB, pleuritic chest pain, dysuria and decreased appetite. Couldn't use nebulizer due to coughing for the past few days. Was seen at [facility] urgent care on 07/25 and diagnosed with sinusitis. Has taken 4 doses of Amoxicillin so far but has developed diarrhea. Denies any lightheadedness, headache, hemoptysis, palpitations, nausea, vomiting, abdominal pain, dysuria, diarrhea or constipation. Quit smoking in 2006. Does not require oxygen at baseline. Was not vaccinated against covid [address] [place] for pulm. Admission Exam Per Admitting Provider The patient Principal Diagnosis Pneumonia due to COVID-19 virus COVID-19 virus infection COPD Discharge Data Allergies Allergy/AdvReac Type Severity Reaction Status Date / Time ABRAM Inhibitors AdvReac Intermediate elevates k+ Verified 08/07/21 07:17 Consultations 07/28/21 15:20 ED Decision to Admit Stat 08/04/21 08:20 Consult Pulmonology Routine Ordered Studies 07/28/21 12:47 CT angio chest PE protocol Stat 08/02/21 08:33 CT angio chest PE protocol Urgent Hospital Course (1) Acute respiratory failure with hypoxia: (2) Pneumonia due to COVID-19 virus: Patient is a 66yr male with of PMH of COPD, LBBB, HTN, GERD and other medical problems listed below who presents with ongoing fever, cough and SOB. COVID-19 pneumonia Acute respiratory failure with hypoxia complicated by COPD -CTA:No evidence of pulmonary embolism. Groundglass and reticular opacities compatible with Covid pneumonia. Lymphadenopathy in the mediastinum and lower cervical stations, likely reactive. -Outpatient positive covid test in 07/25 Normal Procalcitonin Completed Remdesivir course Lasix as needed Currently on high flow oxygen/BiPAP Appreciate pulmonology input and recommendation Increase dexamethasone to 20 mg daily Also started on doxycycline 100 mg twice a day Encourage to prone He has been refusing intubation and remains DNR/DNI He has not been getting any better and saturation is maintained through BiPAP Prognosis remains extremely poor He was intubated last night as he wanted to have it Condition remains critical this morning and discussed with the about comfort care down the line 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 (7) GERD (gastroesophageal reflux disease): Continue PPI DVT Px: SQ Lovenox Code status: DNR/DNI Prognosis remains poor Discussed with the for possible comfort care as the condition remains critical and there is no hope of improvement Total Time Total Time Spent Total Time Spent (In Minutes): 20 minutes Discharge Plan Discharge Items Patient Disposition: Other Date/Time: 08/07/21 15:05
[2021-08-08] MEDS ORDERED: MULTI VIT W/MINERALS LIQUID 15 ML UDP PO SCH (09:00)
[2021-08-08] MEDS ORDERED: dexAMETHasone 20 MG in DEXTROSE 5% 25 ML IV SCH (09:00)
[2021-08-09] MEDS ORDERED: dexAMETHasone 10 MG in SYRINGE 0 ML IV SCH (09:00)
== END 2021-08-07 16:58 | disposition expired | DRG 208 ==
LOC: ED 12:20 → SUATTDRO 18:49 → EDINP 18:49 → 2S 22:38 → 2E 08-04 12:17